=== PATIENT | male | born 1950 | race African-American/Black ===

== ENCOUNTER → 2023-10-22 | Emergency (ER) | payer OTHER ==
[~2023-10-22] MED LIST: NA CHLORIDE 0.9% 1,000 ML ONE; hydrOXYzine HCL 25 MG TAB ONE
--- OUTSIDE RECORDS SUMMARY | 2023-10-22 20:47 | XMS REPORT | Continuity of Care Document ---
Author Name Unknown Address [address] [facility] [address] [place] [address] [facility] thconnect Address [address] [facility] [address] [place] [address] Care Team Providers Care Photograph Retoucher Name Role Phone TaylorParesh marrerogenevieve White Primary Care Physician [phone] SANDOR WISE Attending Clinician Unavailable KAT GARCIA Attending Clinician Unavailable Kat Garcia MD Attending Clinician [phone], [facility] Attending Clinician Unavailable Sandrine Craig RN Attending Clinician UnavailRuthy Breaux RN Attending Clinician UnavailSandeep Maguire MD Attending Clinician Doctor Unassigned, [place] Attending Clinician U Sandor Shahid MD Attending Clinician [phone], [facility] Surg Proc Attending Clinician UnavailSHARMILA Urbina Attending Clinician UnavailSharmila Mahan Attending Clinician [phone] KAT MANTILLA Attending Clinician Unavailable Nurse, [facility] Gu Attending Clinician Marie buckner Only, [facility] Test Attending Clinician Unavailable Shi Walter RN Attending Clinician Unavailab ibarra 1, [facility] Attending Clinician Unavailable VIOLET REDDY Attending Clinician UnavailSANDOR Ramirez Admitting Clinician Unavailable KAT GARCIA Admitting Clinician Unavailable Kat Garcia MD Admitting Clinician [phone] SHARMILA FERGUSON Admitting Clinician UnavailSandor Richard MD Admitting Clinician [phone] Payers Payer Name Policy Type Policy Number Effective Date Expirati on Date Source [employer] ERS [id number] 00:00:00 [facility] [id number] 2020 00:00:00 Problems Condition Name Condition Details Condition Category Status Onset Date Resolution Date Last Treatment Date Treating Clinician Comments Source 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 Benign prostatic hyperplasi a, unspecifie d whether lower urinary tract symptoms present Benign prostatic hyperplasi a, unspecifie d whether lower urinary tract symptoms present Disease Active 03-03 00:00: 00 Overview: Formattin g of this note might be different from the original. Added automatic ally from request for surgery [id number] [facility] BPH with urinary obstructio n BPH with urinary obstructio n Disease Active 2017-07 00:00: 00 Overview: Formattin g of this note might be different from the original. Added automatic ally from request for surgery [id number] [facility] Benign prostatic hyperplasi a with lower urinary tract symptoms, symptom details unspecifie d Benign prostatic hyperplasi a with lower urinary tract symptoms, symptom details unspecifie d Disease Active 2017-07 00:00: 00 Overview: Formattin g of this note might be different from the original. Added automatic ally from request for surgery [id number] [facility] Allergies, Adverse Reactions, Alerts Allergy Name Allergy Type Status Severity Reaction(s) Onset Date Inactive Date Treating Clinician Comments Source NO KNOWN ALLERGIE S Drug Class Active [facility] Social History Social Habit Start Date Stop Date Quantity Comments Source Exposure to SARS-CoV-2 (event) Not sure [facility] Gender identity [facility] 2023-10-04 00:00:00 2023-10-04 00:00:00 Current non-drinker of alcohol (finding) [facility] History of Social function 2023-09-17 00:00:00 2023-09-17 00:00:00 [facility] Tobacco use and exposure 2023-05-30 00:00:00 2023-05-30 00:00:00 Smokeless tobacco non-user [facility] Sex Assigned At 1950 00:00:00 1950 00:00:00 [facility] Smoking Status Start Date Stop Date Source Never smoked tobacco [facility] Medications Ordered Medication Name Filled Medication Name Start Date Stop Date Current Medication? Ordering Clinician Indication Dosage Frequency Signature (SIG) Comments Components Source fludeoxyglu cose F-18 (FDG) injection 12.99 millicurie 2023-10-07 15:45: 00 10-07 14:37 :00 No [id number] 12.99mC i 12.99 millicurie , Intravenou s, ONCE, 1 dose, On Sun10/08/23 at 1045, Routine [facility] oxyCODONE 5 mg immediate release tablet 2023-0 3 00:00: 00 10-11 04:59 :00 Yes 2745 5mg Take 1 tablet by mouth every 4 (four) hours as needed for Pain (scale 4-6) or Pain (scale 7-10) for up to 7 days. Indication s: chronic pain [facility] oxyCODONE 5 mg immediate release tablet 2023-0 3-07 00:00: 00 10-11 04:59 :00 Yes 2745 5mg Take 1 tablet by mouth every 4 (four) hours as needed for Pain (scale 4-6) or Pain (scale 7-10) for up to 7 days. Indication s: chronic pain [facility] oxyCODONE 5 mg immediate release tablet 2023-0 3-07 00:00: 00 10-11 04:59 :00 Yes 2745 5mg Take 1 tablet by mouth every 4 (four) hours as needed for Pain (scale 4-6) or Pain (scale 7-10) for up to 7 days. Indication s: chronic pain [facility] oxyCODONE 5 mg immediate release tablet 2023-0 3-07 00:00: 00 10-11 04:59 :00 Yes 2745 5mg Take 1 tablet by mouth every 4 (four) hours as needed for Pain (scale 4-6) or Pain (scale 7-10) for up to 7 days. Indication s: chronic pain [facility] oxyCODONE 5 mg immediate release tablet 2023-0 3-07 00:00: 00 10-11 04:59 :00 Yes 2745 5mg Take 1 tablet by mouth every 4 (four) hours as needed for Pain (scale 4-6) or Pain (scale 7-10) for up to 7 days. Indication s: chronic pain [facility] oxyCODONE 5 mg immediate release tablet 2023-0 3-07 00:00: 00 10-11 04:59 :00 Yes 2745 5mg Take 1 tablet by mouth every 4 (four) hours as needed for Pain (scale 4-6) or Pain (scale 7-10) for up to 7 days. Indication s: chronic pain [facility] contrast previously administere d 0 mL 09-25 20:00: 00 09-25 19:49 :00 No [id number] Intravenou s, ONCE, 1 dose, On Sun09/25/23 at 1400, Routine [facility] iopamidol (ISOVUE 370-500 mL) injection 75 mL 09-25 19:30: 00 09-25 19:47 :00 No [id number] 75mL 75 mL, Intravenou s, ONCE, 1 dose, On Sun09/25/23 at 1330, Routine [facility] ondansetron (ZOFRAN (PF)) injection 4 mg 09-17 20:13: 16 Yes 4mg 4 mg, Slow IV Push, PRN, 1 dose, Starting on Sun09/17/23 at 1413, Until Discontinu ed, Routine, Nausea and Vomiting (N/V), DSU Recovery [facility] acetaminoph en (TYLENOL) tablet 650 mg 09-17 20:13: 16 Yes 650mg 650 mg, Oral, PRN, 1 dose, Starting on Sun09/17/23 at 1413, Until Discontinu ed, Routine, Pain (scale 1-3), D[facility] HYDROcodone -acetaminop hen (NORCO 5) 5-325 mg tablet 1 tablet 09-17 20:13: 16 09-17 20:23 :00 No 1{tbl} 1 tablet, Oral, PRN, 1 dose, Starting on Sun09/17/23 at 1413, Until Discontinu ed, Routine, Pain (scale 4-6), DSU Recovery [facility] ondansetron (ZOFRAN (PF)) injection 4 mg 09-17 20:13: 16 09-17 23:19 :18 No 4mg 4 mg, Slow IV Push, PRN, 1 dose, Starting on Sun09/17/23 at 1413, Until Sun09/17/23 at 1719, Routine, Nausea and Vomiting (N/V), DSU Recovery [facility] HYDROcodone -acetaminop hen (NORCO 5) 5-325 mg tablet 1 tablet 09-17 20:13: 16 09-17 20:23 :00 No 1{tbl} 1 tablet, Oral, PRN, 1 dose, Starting on Sun09/17/23 at 1413, Until Discontinu ed, Routine, Pain (scale 4-6), DSU Recovery [facility] acetaminoph en (TYLENOL) tablet 650 mg 09-17 20:13: 16 09-17 23:19 :18 No 650mg 650 mg, Oral, PRN, 1 dose, Starting on Sun09/17/23 at 1413, Until Sun09/17/23 at 1719, Routine, Pain (scale 1-3), D[facility] Recovery [facility] bupivacaine -epinephrin e-pf (SENSORCAIN E W/EPINEPHRI NE) 0.5 %-1:200,000 injection 09-17 19:24: 00 09-17 20:55 :29 No PRN, Starting on Sun09/17/23 at 1324, Until Sun09/17/23 at 1455, Routine, Intra-op [facility] dexamethaso ne (DECADRON PHOSPHATE) injection 09-17 19:07: 00 09-17 20:00 :59 No IV Push, ONCE INTRA PROCEDURE, Starting on Sun09/17/23 at 1307, Until Sun09/17/23 at 1400, Routine, Intra-op [facility] dexamethaso ne (DECADRON PHOSPHATE) injection 09-17 19:07: 00 09-17 20:00 :59 No IV Push, ONCE INTRA PROCEDURE, Starting on Sun09/17/23 at 1307, Until Sun09/17/23 at 1400, Routine, Intra-op [facility] cefTRIAXone (ROCEPHIN) injection 09-17 19:05: 00 09-17 20:00 :59 No Slow IV Push, ONCE INTRA PROCEDURE, Starting on Sun09/17/23 at 1305, Until Sun09/17/23 at 1400, JAMES, Intra-op [facility] cefTRIAXone (ROCEPHIN) injection 09-17 19:05: 00 09-17 20:00 :59 No Slow IV Push, ONCE INTRA PROCEDURE, Starting on Sun09/17/23 at 1305, Until Sun09/17/23 at 1400, JAMES, Intra-op [facility] metroNIDAZO LE in NaCl (iso-os) (FLAGYL I.V.) RTU IV infusion 09-17 19:02: 00 09-17 20:00 :59 No IV Infusion, ONCE INTRA PROCEDURE, Starting on Sun09/17/23 at 1302, Until Sun09/17/23 at 1400, Administer over 60 Minutes, Intra-op [facility] metroNIDAZO LE in NaCl (iso-os) (FLAGYL I.V.) RTU IV infusion 09-17 19:02: 00 09-17 20:00 :59 No IV Infusion, ONCE INTRA PROCEDURE, Starting on Sun09/17/23 at 1302, Until Sun09/17/23 at 1400, Administer over 60 Minutes, Intra-op [facility] ePHEDrine 25 mg/5 mL (5 mg/mL) syringe 09-17 18:59: 00 09-17 20:00 :59 No Slow IV Push, ONCE INTRA PROCEDURE, Starting on Sun09/17/23 at 1259, Until Sun09/17/23 at 1400, Routine, Intra-op [facility] ePHEDrine 25 mg/5 mL (5 mg/mL) syringe 09-17 18:59: 00 09-17 20:00 :59 No Slow IV Push, ONCE INTRA PROCEDURE, Starting on Sun09/17/23 at 1259, Until Sun09/17/23 at 1400, Routine, Intra-op [facility] ondansetron (ZOFRAN (PF)) injection 09-17 18:55: 00 09-17 20:00 :59 No Slow IV Push, ONCE INTRA PROCEDURE, Starting on Sun09/17/23 at 1255, Until Sun09/17/23 at 1400, Routine, Intra-op [facility] propofoL IV infusion 09-17 18:55: 00 09-17 20:00 :59 No Intravenou s, ONCE INTRA PROCEDURE, Starting on Sun09/17/23 at 1255, Until Sun09/17/23 at 1400, Routine, Intra-op [facility] lidocaine 1% (XYLOCAINE) 100 mg/10 mL (1 %) injection 09-17 18:55: 00 09-17 20:00 :59 No Intravenou s, ONCE INTRA PROCEDURE, Starting on Sun09/17/23 at 1255, Until Sun09/17/23 at 1400, Routine, Intra-op [facility] FENTanyl PF (SUBLIMAZE (PF)) injection 09-17 18:55: 00 09-17 20:00 :59 No Intravenou s, ONCE INTRA PROCEDURE, Starting on Sun09/17/23 at 1255, Until Sun09/17/23 at 1400, Routine, Intra-op [facility] ondansetron (ZOFRAN (PF)) injection 09-17 18:55: 00 09-17 20:00 :59 No Slow IV Push, ONCE INTRA PROCEDURE, Starting on Sun09/17/23 at 1255, Until Sun09/17/23 at 1400, Routine, Intra-op [facility] propofoL IV infusion 2023-0 09-17 18:55: 00 09-17 20:00 :59 No Intravenou s, ONCE INTRA PROCEDURE, Starting on Sun09/17/23 at 1255, Until Sun09/17/23 at 1400, Routine, Intra-op [facility] lidocaine 1% (XYLOCAINE) 100 mg/10 mL (1 %) injection 2023-09-17 18:55: 00 09-17 20:00 :59 No Intravenou s, ONCE INTRA PROCEDURE, Starting on Sun09/17/23 at 1255, Until Sun09/17/23 at 1400, Routine, Intra-op [facility] FENTanyl PF (SUBLIMAZE (PF)) injection 09-17 18:55: 00 09-17 20:00 :59 No Intravenou s, ONCE INTRA PROCEDURE, Starting on Sun09/17/23 at 1255, Until Sun09/17/23 at 1400, Routine, Intra-op [facility] lactated ringers IV infusion 2023-0 09-17 18:48: 00 09-17 20:00 :59 No IV Infusion, CONTINUOUS PRN, Starting on Sun09/17/23 at 1248, Until Sun09/17/23 at 1400, Routine, Intra-op [facility] midazolam (VERSED) injection 2023-0 - 18:48: 00 09-17 20:00 :59 No IV Push, ONCE INTRA PROCEDURE, Starting on Sun09/17/23 at 1248, Until Sun09/17/23 at 1400, Routine, [facility] 20[facility]-0 09-17 18:48: 00 09-17 20:00 :59 No IV Infusion, CONTINUOUS PRN, Starting on Sun09/17/23 at 1248, Until Sun09/17/23 at 1400, Routine, Intra-op [facility] midazolam (VERSED) injection 2023-0 2- 18:48: 00 09-17 20:00 :59 No IV Push, ONCE INTRA PROCEDURE, Starting on Sun09/17/23 at 1248, Until Sun09/17/23 at 1400, Routine, Intra-op [facility] lactated ringers IV infusion 1,000 mL 09-17 18:15: 00 09-17 18:36 :00 No 1000mL at 42 mL/hr, 1,000 mL, IV Infusion, ONCE, 1 dose, On Sun09/17/23 at 1215, Routine, DSU Pre-op [facility] lactated ringers IV infusion 1,000 mL 09-17 18:15: 00 09-17 18:36 :00 No 1000mL at 42 mL/hr, 1,000 mL, IV Infusion, ONCE, 1 dose, On Sun09/17/23 at 1215, Routine, DSU Pre-op [facility] metroNIDAZO LE in NaCl (iso-os) (FLAGYL I.V.) RTU IV infusion 500 mg 09-17 18:12: 53 09-17 18:48 :42 No 500mg 500 mg, IV Infusion, O.R. HOLDING ONCE, Starting on Sun09/17/23 at 1212, Until Sun09/17/23 at 1248, Administer over 60 Minutes, 100 mL, DSU Pre-op
Reason for Anti-Infec tive: Surgical Prophylaxi s
Surgi stephanie Prophylaxi s: Other (see Comments)< br>Duratio n of therapy: within [address] [facility] celecoxib (CELEBREX) capsule 200 mg 09-17 18:12: 53 09-17 18:23 :00 No 200mg 200 mg, Oral, O.R. HOLDING ONCE, 1 dose, Starting on Sun09/17/23 at 1212, Until Discontinu ed, Routine, Pain, DSU Pre-op [facility] gabapentin (NEURONTIN) capsule 300 mg 09-17 18:12: 53 09-17 18:23 :00 No 300mg 300 mg, Oral, O.R. HOLDING ONCE, 1 dose, Starting on Sun09/17/23 at 1212, Until Discontinu ed, Routine, Surgery/Pr ocedure, [facility] acetaminoph en (TYLENOL) tablet 650 mg 09-17 18:12: 53 09-17 18:23 :00 No 650mg 650 mg, Oral, O.R. HOLDING ONCE, 1 dose, Starting on Sun09/17/23 at 1212, Until Discontinu ed, Routine, Surgery / Procedure, DSU Pre-op [facility] metroNIDAZO LE in NaCl (iso-os) (FLAGYL I.V.) RTU IV infusion 500 mg 09-17 18:12: 53 09-17 18:48 :42 No 500mg 500 mg, IV Infusion, O.R. HOLDING ONCE, Starting on Sun09/17/23 at 1212, Until Sun09/17/23 at 1248, Administer over 60 Minutes, 100 mL, DSU Pre-op
Reason for Anti-Infec tive: Surgical Prophylaxi s
Surgi stephanie Prophylaxi s: Other (see Comments)< br>Duratio n of therapy: within [address] [facility] celecoxib (CELEBREX) capsule 200 mg 09-17 18:12: 53 09-17 18:23 :00 No 200mg 200 mg, Oral, O.R. HOLDING ONCE, 1 dose, Starting on Sun09/17/23 at 1212, Until Discontinu ed, Routine, Pain, DSU Pre-op [facility] gabapentin (NEURONTIN) capsule 300 mg 09-17 18:12: 53 09-17 18:23 :00 No 300mg 300 mg, Oral, O.R. HOLDING ONCE, 1 dose, Starting on Sun09/17/23 at 1212, Until Discontinu ed, Routine, Surgery/Pr ocedure, DSU Pre-op [facility] acetaminoph en (TYLENOL) tablet 650 mg 09-17 18:12: 53 09-17 18:23 :00 No 650mg 650 mg, Oral, O.R. HOLDING ONCE, 1 dose, Starting on Sun09/17/23 at 1212, Until Discontinu ed, Routine, Surgery / Procedure, [facility] Pre[facility]op [facility] atorvastati n 20 mg tablet 4-0 2-19 15:19: 03 Yes 20mg Take 1 tablet by mouth at bedtime. [facility] busPIRone 15 mg tablet 4-0 2-19 15:19: 03 Yes 15mg Take 1 tablet by mouth in the morning and 1 tablet in the evening. [facility] esomeprazol e 40 mg capsule 4-0 2-19 15:19: 03 Yes 40mg Take 1 capsule by mouth daily with breakfast. [facility] losartan 100 mg tablet 4-0 2-19 15:19: 03 Yes 100mg Take 1 tablet by mouth in the morning. [facility] hydroCHLORO thiazide 25 mg tablet 4-0 2-19 15:19: 03 Yes 25mg Take 1 tablet by mouth in the morning. [facility] doxazosin 2 mg tablet 4-0 2-19 15:19: 03 Yes 2mg Take 1 tablet by mouth in the morning. [facility] atorvastati n 20 mg tablet 4-0 2-19 15:19: 03 Yes 20mg Take 1 tablet by mouth at bedtime. [facility] busPIRone 15 mg tablet 4-0 2-19 15:19: 03 Yes 15mg Take 1 tablet by mouth in the morning and 1 tablet in the evening. [facility] esomeprazol e 40 mg capsule 4-0 2-19 15:19: 03 Yes 40mg Take 1 capsule by mouth daily with breakfast. [facility] losartan 100 mg tablet 4-0 2-19 15:19: 03 Yes 100mg Take 1 tablet by mouth in the morning. [facility] hydroCHLORO thiazide 25 mg tablet 4-0 2-19 15:19: 03 Yes 25mg Take 1 tablet by mouth in the morning. [facility] doxazosin 2 mg tablet 4-0 2-19 15:19: 03 Yes 2mg Take 1 tablet by mouth in the morning. [facility] atorvastati n 20 mg tablet 4-0 2-19 15:19: 03 Yes 20mg Take 1 tablet by mouth at bedtime. [facility] busPIRone 15 mg tablet 4-0 2-19 15:19: 03 Yes 15mg Take 1 tablet by mouth in the morning and 1 tablet in the evening. [facility] esomeprazol e 40 mg capsule 4-0 2-19 15:19: 03 Yes 40mg Take 1 capsule by mouth daily with breakfast. [facility] losartan 100 mg tablet 4-0 2-19 15:19: 03 Yes 100mg Take 1 tablet by mouth in the morning. [facility] hydroCHLORO thiazide 25 mg tablet 4-0 2-19 15:19: 03 Yes 25mg Take 1 tablet by mouth in the morning. [facility] atorvastati n 20 mg tablet 4-0 2-19 15:19: 03 Yes 20mg Take 1 tablet by mouth at bedtime. [facility] busPIRone 15 mg tablet 4-0 2-19 15:19: 03 Yes 15mg Take 1 tablet by mouth in the morning and 1 tablet in the evening. [facility] esomeprazol e 40 mg capsule 4-0 -19 15:19: 03 Yes 40mg Take 1 capsule by mouth daily with breakfast. [facility] losartan 100 mg tablet 4-0 -19 15:19: 03 Yes 100mg Take 1 tablet by mouth in the morning. [facility] hydroCHLORO thiazide 25 mg tablet 4-0 2-19 15:19: 03 Yes 25mg Take 1 tablet by mouth in the morning. [facility] doxazosin 2 mg tablet 4-0 -19 15:19: 03 Yes 2mg Take 1 tablet by mouth in the morning. [facility] atorvastati n 20 mg tablet 4-0 2-19 15:19: 03 Yes 20mg Take 1 tablet by mouth at bedtime. [facility] busPIRone 15 mg tablet 4-0 2-19 15:19: 03 Yes 15mg Take 1 tablet by mouth in the morning and 1 tablet in the evening. [facility] esomeprazol e 40 mg capsule 4-0 2-19 15:19: 03 Yes 40mg Take 1 capsule by mouth daily with breakfast. [facility] losartan 100 mg tablet 4-0 2-19 15:19: 03 Yes 100mg Take 1 tablet by mouth in the morning. [facility] hydroCHLORO thiazide 25 mg tablet 4-0 2-19 15:19: 03 Yes 25mg Take 1 tablet by mouth in the morning. [facility] doxazosin 2 mg tablet 4-0 2-19 15:19: 03 Yes 2mg Take 1 tablet by mouth in the morning. [facility] atorvastati n 20 mg tablet 4-0 2-19 15:19: 03 Yes 20mg Take 1 tablet by mouth at bedtime. [facility] busPIRone 15 mg tablet 4-0 2-19 15:19: 03 Yes 15mg Take 1 tablet by mouth in the morning and 1 tablet in the evening. [facility] esomeprazol e 40 mg capsule 4-0 -19 15:19: 03 Yes 40mg Take 1 capsule by mouth daily with breakfast. [facility] losartan 100 mg tablet 4-0 -19 15:19: 03 Yes 100mg Take 1 tablet by mouth in the morning. [facility] hydroCHLORO thiazide 25 mg tablet 4-0 2-19 15:19: 03 Yes 25mg Take 1 tablet by mouth in the morning. [facility] doxazosin 2 mg tablet 4-0 2-19 15:19: 03 Yes 2mg Take 1 tablet by mouth in the morning. [facility] atorvastati n 20 mg tablet 4-0 2-19 15:19: 03 Yes 20mg Take 1 tablet by mouth at bedtime. [facility] busPIRone 15 mg tablet 4-0 2-19 15:19: 03 Yes 15mg Take 1 tablet by mouth in the morning and 1 tablet in the evening. [facility] esomeprazol e 40 mg capsule 4-0 2-19 15:19: 03 Yes 40mg Take 1 capsule by mouth daily with breakfast. [facility] losartan 100 mg tablet 4-0 2-19 15:19: 03 Yes 100mg Take 1 tablet by mouth in the morning. [facility] hydroCHLORO thiazide 25 mg tablet 4-0 2-19 15:19: 03 Yes 25mg Take 1 tablet by mouth in the morning. [facility] doxazosin 2 mg tablet 4-0 2-19 15:19: 03 Yes 2mg Take 1 tablet by mouth in the morning. [facility] atorvastati n 20 mg tablet 4-0 2-19 15:19: 03 Yes 20mg Take 1 tablet by mouth at bedtime. [facility] busPIRone 15 mg tablet 4-0 2-19 15:19: 03 Yes 15mg Take 1 tablet by mouth in the morning and 1 tablet in the evening. [facility] esomeprazol e 40 mg capsule 4-0 2-19 15:19: 03 Yes 40mg Take 1 capsule by mouth daily with breakfast. [facility] losartan 100 mg tablet 4-0 -19 15:19: 03 Yes 100mg Take 1 tablet by mouth in the morning. [facility] hydroCHLORO thiazide 25 mg tablet 4-0 2-19 15:19: 03 Yes 25mg Take 1 tablet by mouth in the morning. [facility] doxazosin 2 mg tablet 2023-0 - 15:19: 03 Yes 2mg Take 1 tablet by mouth in the morning. [facility] atorvastati n 20 mg tablet 4-0 2-19 15:19: 03 Yes 20mg Take 1 tablet by mouth at bedtime. [facility] busPIRone 15 mg tablet 4-0 2-19 15:19: 03 Yes 15mg Take 1 tablet by mouth in the morning and 1 tablet in the evening. [facility] esomeprazol e 40 mg capsule 4-0 2-19 15:19: 03 Yes 40mg Take 1 capsule by mouth daily with breakfast. [facility] losartan 100 mg tablet 4-0 2-19 15:19: 03 Yes 100mg Take 1 tablet by mouth in the morning. [facility] hydroCHLORO thiazide 25 mg tablet 4-0 2-19 15:19: 03 Yes 25mg Take 1 tablet by mouth in the morning. [facility] doxazosin 2 mg tablet 4-0 2-19 15:19: 03 Yes 2mg Take 1 tablet by mouth in the morning. [facility] atorvastati n 20 mg tablet 4-0 2-19 15:19: 03 Yes 20mg Take 1 tablet by mouth at bedtime. [facility] busPIRone 15 mg tablet 4-0 2-19 15:19: 03 Yes 15mg Take 1 tablet by mouth in the morning and 1 tablet in the evening. [facility] esomeprazol e 40 mg capsule 4-0 2-19 15:19: 03 Yes 40mg Take 1 capsule by mouth daily with breakfast. [facility] losartan 100 mg tablet 4-0 2-19 15:19: 03 Yes 100mg Take 1 tablet by mouth in the morning. [facility] hydroCHLORO thiazide 25 mg tablet 4-0 2-19 15:19: 03 Yes 25mg Take 1 tablet by mouth in the morning. [facility] doxazosin 2 mg tablet 4-0 2-19 15:19: 03 Yes 2mg Take 1 tablet by mouth in the morning. [facility] atorvastati n 20 mg tablet 4-0 2-19 15:19: 03 Yes 20mg Take 1 tablet by mouth at bedtime. [facility] busPIRone 15 mg tablet 4-0 2-19 15:19: 03 Yes 15mg Take 1 tablet by mouth in the morning and 1 tablet in the evening. [facility] esomeprazol e 40 mg capsule 4-0 2-19 15:19: 03 Yes 40mg Take 1 capsule by mouth daily with breakfast. [facility] [facility] losartan 100 mg tablet 4-0 2-19 15:19: 03 Yes 100mg Take 1 tablet by mouth in the morning. [facility] hydroCHLORO thiazide 25 mg tablet 4-0 2-19 15:19: 03 Yes 25mg Take 1 tablet by mouth in the morning. [facility] doxazosin 2 mg tablet 4-0 2-19 15:19: 03 Yes 2mg Take 1 tablet by mouth in the morning. [facility] atorvastati n 20 mg tablet 4-0 2-19 15:19: 03 Yes 20mg Take 1 tablet by mouth at bedtime. [facility] busPIRone 15 mg tablet 4-0 2-19 15:19: 03 Yes 15mg Take 1 tablet by mouth in the morning and 1 tablet in the evening. [facility] esomeprazol e 40 mg capsule 4-0 2-19 15:19: 03 Yes 40mg Take 1 capsule by mouth daily with breakfast. [facility] losartan 100 mg tablet 4-0 2-19 15:19: 03 Yes 100mg Take 1 tablet by mouth in the morning. [facility] hydroCHLORO thiazide 25 mg tablet 4-0 2-19 15:19: 03 Yes 25mg Take 1 tablet by mouth in the morning. [facility] doxazosin 2 mg tablet 4-0 2-19 15:19: 03 Yes 2mg Take 1 tablet by mouth in the morning. [facility] atorvastati n 20 mg tablet 4-0 -19 15:19: 03 Yes 20mg Take 1 tablet by mouth at bedtime. [facility] busPIRone 15 mg tablet 4-0 2-19 15:19: 03 Yes 15mg Take 1 tablet by mouth in the morning and 1 tablet in the evening. [facility] esomeprazol e 40 mg capsule 4-0 -19 15:19: 03 Yes 40mg Take 1 capsule by mouth daily with breakfast. [facility] losartan 100 mg tablet 4-0 2-19 15:19: 03 Yes 100mg Take 1 tablet by mouth in the morning. [facility] hydroCHLORO thiazide 25 mg tablet 4-0 2-19 15:19: 03 Yes 25mg Take 1 tablet by mouth in the morning. [facility] doxazosin 2 mg tablet 4-0 2-19 15:19: 03 Yes 2mg Take 1 tablet by mouth in the morning. [facility] atorvastati n 20 mg tablet 4-0 2-19 15:19: 03 Yes 20mg Take 1 tablet by mouth at bedtime. [facility] busPIRone 15 mg tablet 4-0 2-19 15:19: 03 Yes 15mg Take 1 tablet by mouth in the morning and 1 tablet in the evening. [facility] esomeprazol e 40 mg capsule 4-0 2-19 15:19: 03 Yes 40mg Take 1 capsule by mouth daily with breakfast. [facility] losartan 100 mg tablet 4-0 2-19 15:19: 03 Yes 100mg Take 1 tablet by mouth in the morning. [facility] hydroCHLORO thiazide 25 mg tablet 4-0 2-19 15:19: 03 Yes 25mg Take 1 tablet by mouth in the morning. [facility] doxazosin 2 mg tablet 4-0 - 15:19: 03 Yes 2mg Take 1 tablet by mouth in the morning. [facility] atorvastati n 20 mg tablet 4-0 -19 15:19: 03 Yes 20mg Take 1 tablet by mouth at bedtime. [facility] busPIRone 15 mg tablet 4-0 2-19 15:19: 03 Yes 15mg Take 1 tablet by mouth in the morning and 1 tablet in the evening. [facility] esomeprazol e 40 mg capsule 4-0 -19 15:19: 03 Yes 40mg Take 1 capsule by mouth daily with breakfast. [facility] losartan 100 mg tablet 4-0 2-19 15:19: 03 Yes 100mg Take 1 tablet by mouth in the morning. [facility] hydroCHLORO thiazide 25 mg tablet 4-0 2-19 15:19: 03 Yes 25mg Take 1 tablet by mouth in the morning. [facility] doxazosin 2 mg tablet 4-0 2-19 15:19: 03 Yes 2mg Take 1 tablet by mouth in the morning. [facility] atorvastati n 20 mg tablet 4-0 2-19 15:19: 03 Yes 20mg Take 1 tablet by mouth at bedtime. [facility] busPIRone 15 mg tablet 09-17 15:19: 03 Yes 15mg Take 1 tablet by mouth in the morning and 1 tablet in the evening. [facility] esomeprazol e 40 mg capsule 09-17 15:19: 03 Yes 40mg Take 1 capsule by mouth daily with breakfast. [facility] losartan 100 mg tablet 09-17 15:19: 03 Yes 100mg Take 1 tablet by mouth in the morning. [facility] hydroCHLORO thiazide 25 mg tablet 09-17 15:19: 03 Yes 25mg Take 1 tablet by mouth in the morning. [facility] doxazosin 2 mg tablet 09-17 15:19: 03 Yes 2mg Take 1 tablet by mouth in the morning. [facility] acetaminoph en (TYLENOL) 325 mg Cap 09-17 00:00: 00 10-01 05:59 :00 Yes [id number] 650mg Take 650 mg by mouth in the morning and 650 mg at noon and 650 mg in the evening. Do all this for [address] [facility] acetaminoph en (TYLENOL) 325 mg Cap 09-17 00:00: 00 10-01 05:59 :00 Yes [id number] 650mg Take 650 mg by mouth in the morning and 650 mg at noon and 650 mg in the evening. Do all this for [address] [facility] acetaminoph en (TYLENOL) 325 mg Cap 09-17 00:00: 00 10-01 05:59 :00 Yes [id number] 650mg Take 650 mg by mouth in the morning and 650 mg at noon and 650 mg in the evening. Do all this for [address] [facility] acetaminoph en (TYLENOL) 325 mg Cap 2023-0 09-17 00:00: 00 10-01 05:59 :00 Yes [id number] 650mg Take 650 mg by mouth in the morning and 650 mg at noon and 650 mg in the evening. Do all this for [address] [facility] acetaminoph en (TYLENOL) 325 mg Cap -19 00:00: 00 10-01 05:59 :00 Yes [id number] 650mg Take 650 mg by mouth in the morning and 650 mg at noon and 650 mg in the evening. Do all this for [address] [facility] gadoteridol (PROHANCE-2 0 mL) injection 18.32 mL 09-14 23:15: 00 09-14 23:16 :00 No [id number] .2mL/kg 18.32 mL (0.2 mL/kg ?91.6 kg), Intravenou s, ONCE, 1 dose, On Sun09/14/23 at 1715, Routine [facility] carvedilol 6.25 mg tablet 09-12 10:: 09-12 00:00 :00 No 25mg Take 4 tablets by mouth in the morning and 4 tablets in the evening. Take with meals. [facility] Cholecalcif german, Vitamin D3, 5,000 unit capsule 09-12 10:: 09-12 00:00 :00 No Take by mouth. [facility] carvedilol 6.25 mg tablet 09-12 10:16: 09-12 00:00 :00 No 25mg Take 4 tablets by mouth in the morning and 4 tablets in the evening. Take with meals. [facility] Cholecalcif german, Vitamin D3, 5,000 unit capsule 09-12 10:: 09-12 00:00 :00 No Take by mouth. [facility] valsartan-h ydrochlorot hiazide (DIOVAN-HCT ) 80-12.5 mg per tablet 09-12 10:15: 09-12 00:00 :00 No 1{tbl} Take 1 tablet by mouth in the morning. [facility] tamsulosin 0.4 mg 24 hr capsule 09-12 10:15: 09-12 00:00 :00 No .4mg Take 1 capsule by mouth in the morning. [facility] valsartan-h ydrochlorot hiazide (DIOVAN-HCT ) 80-12.5 mg per tablet 09-12 10:15: 00 09-12 00:00 :00 No 1{tbl} Take 1 tablet by mouth in the morning. [facility] tamsulosin 0.4 mg 24 hr capsule 09-12 10:15: 00 09-12 00:00 :00 No .4mg Take 1 capsule by mouth in the morning. [facility] atorvastati n 20 mg tablet 09-12 10:14: 18 Yes 20mg Take 1 tablet by mouth at bedtime. [facility] busPIRone 15 mg tablet -14 10:14: 18 Yes 15mg Take 1 tablet by mouth in the morning and 1 tablet in the evening. [facility] esomeprazol e 40 mg capsule - 10:14: 18 Yes 40mg Take 1 capsule by mouth daily with breakfast. [facility] losartan 100 mg tablet 09-12 10:14: 18 Yes 100mg Take 1 tablet by mouth in the morning. [facility] hydroCHLORO thiazide 25 mg tablet - 10:14: 18 Yes 25mg Take 1 tablet by mouth in the morning. [facility] doxazosin 2 mg tablet 09-12 10:14: 18 Yes 2mg Take 1 tablet by mouth in the morning. [facility] atorvastati n 20 mg tablet 0 -14 10:14: 18 Yes 20mg Take 1 tablet by mouth at bedtime. [facility] busPIRone 15 mg tablet 0 -14 10:14: 18 Yes 15mg Take 1 tablet by mouth in the morning and 1 tablet in the evening. [facility] esomeprazol e 40 mg capsule 2023-0 -14 10:14: 18 Yes 40mg Take 1 capsule by mouth daily with breakfast. [facility] losartan 100 mg tablet 2023-0 14 10:14: 18 Yes 100mg Take 1 tablet by mouth in the morning. [facility] hydroCHLORO thiazide 25 mg tablet 2023-0 -14 10:14: 18 Yes 25mg Take 1 tablet by mouth in the morning. [facility] doxazosin 2 mg tablet 2023-0 -14 10:14: 18 Yes 2mg Take 1 tablet by mouth in the morning. [facility] atorvastati n 20 mg tablet 2023-0 -14 10:14: 18 Yes 20mg Take 1 tablet by mouth at bedtime. [facility] busPIRone 15 mg tablet 2023-0 -14 10:14: 18 Yes 15mg Take 1 tablet by mouth in the morning and 1 tablet in the evening. [facility] esomeprazol e 40 mg capsule 2023-0 09-12 10:14: 18 Yes 40mg Take 1 capsule by mouth daily with breakfast. [facility] losartan 100 mg tablet 2023-0 14 10:14: 18 Yes 100mg Take 1 tablet by mouth in the morning. [facility] hydroCHLORO thiazide 25 mg tablet 2023-0 14 10:14: 18 Yes 25mg Take 1 tablet by mouth in the morning. [facility] doxazosin 2 mg tablet 2023-0 14 10:14: 18 Yes 2mg Take 1 tablet by mouth in the morning. [facility] carvedilol 6.25 mg tablet 4-0 08 16:23: 58 Yes 25mg Take 4 tablets by mouth in the morning and 4 tablets in the evening. Take with meals. [facility] carvedilol 6.25 mg tablet 4-0 -08 16:23: 58 Yes 25mg Take 4 tablets by mouth in the morning and 4 tablets in the evening. Take with meals. [facility] carvedilol 6.25 mg tablet 4-0 2-08 16:23: 58 Yes 25mg Take 4 tablets by mouth in the morning and 4 tablets in the evening. Take with meals. [facility] carvedilol 6.25 mg tablet 09-06 16:23: 58 Yes 25mg Take 4 tablets by mouth in the morning and 4 tablets in the evening. Take with meals. [facility] doxazosin 2 mg tablet 09-06 15:11: 19 Yes 2mg Take 1 tablet by mouth in the morning. [facility] doxazosin 2 mg tablet 09-06 15:11: 19 Yes 2mg Take 1 tablet by mouth in the morning. [facility] doxazosin 2 mg tablet 09-06 15:11: 19 Yes 2mg Take 1 tablet by mouth in the morning. [facility] doxazosin 2 mg tablet 09-06 15:11: 19 Yes 2mg Take 1 tablet by mouth in the morning. [facility] tamsulosin 0.4 mg 24 hr capsule 09-06 14:44: 20 Yes .4mg Take 1 capsule by mouth in the morning. [facility] busPIRone 15 mg tablet 09-06 14:44: 20 Yes 15mg Take 1 tablet by mouth in the morning and 1 tablet in the evening. [facility] esomeprazol e 40 mg capsule 09-06 14:44: 20 Yes 40mg Take 1 capsule by mouth daily with breakfast. [facility] Cholecalcif german, Vitamin D3, 5,000 unit capsule 09-06 14:44: 20 Yes Take by mouth. [facility] losartan 100 mg tablet 09-06 14:44: 20 Yes 100mg Take 1 tablet by mouth in the morning. [facility] hydroCHLORO thiazide 25 mg tablet 09-06 14:44: 20 Yes 25mg Take 1 tablet by mouth in the morning. [facility] valsartan-h ydrochlorot hiazide (DIOVAN-HCT ) 80-12.5 mg per tablet 09-06 14:44: 20 Yes 1{tbl} Take 1 tablet by mouth in the morning. [facility] atorvastati n 20 mg tablet 09-06 14:44: 20 Yes 20mg Take 1 tablet by mouth at bedtime. [facility] tamsulosin 0.4 mg 24 hr capsule 09-06 14:44: 20 Yes .4mg Take 1 capsule by mouth in the morning. [facility] busPIRone 15 mg tablet 09-06 14:44: 20 Yes 15mg Take 1 tablet by mouth in the morning and 1 tablet in the evening. [facility] esomeprazol e 40 mg capsule 09-06 14:44: 20 Yes 40mg Take 1 capsule by mouth daily with breakfast. [facility] Cholecalcif german, Vitamin D3, 5,000 unit capsule 09-06 14:44: 20 Yes Take by mouth. [facility] losartan 100 mg tablet 09-06 14:44: 20 Yes 100mg Take 1 tablet by mouth in the morning. [facility] hydroCHLORO thiazide 25 mg tablet 09-06 14:44: 20 Yes 25mg Take 1 tablet by mouth in the morning. [facility] valsartan-h ydrochlorot hiazide (DIOVAN-HCT ) 80-12.5 mg per tablet 09-06 14:44: 20 Yes 1{tbl} Take 1 tablet by mouth in the morning. [facility] atorvastati n 20 mg tablet 09-06 14:44: 20 Yes 20mg Take 1 tablet by mouth at bedtime. [facility] tamsulosin 0.4 mg 24 hr capsule 09-06 14:44: 20 Yes .4mg Take 1 capsule by mouth in the morning. [facility] busPIRone 15 mg tablet 09-06 14:44: 20 Yes 15mg Take 1 tablet by mouth in the morning and 1 tablet in the evening. [facility] esomeprazol e 40 mg capsule 09-06 14:44: 20 Yes 40mg Take 1 capsule by mouth daily with breakfast. [facility] Cholecalcif german, Vitamin D3, 5,000 unit capsule 09-06 14:44: 20 Yes Take by mouth. [facility] losartan 100 mg tablet 09-06 14:44: 20 Yes 100mg Take 1 tablet by mouth in the morning. [facility] hydroCHLORO thiazide 25 mg tablet 09-06 14:44: 20 Yes 25mg Take 1 tablet by mouth in the morning. [facility] valsartan-h ydrochlorot hiazide (DIOVAN-HCT ) 80-12.5 mg per tablet 09-06 14:44: 20 Yes 1{tbl} Take 1 tablet by mouth in the morning. [facility] atorvastati n 20 mg tablet 09-06 14:44: 20 Yes 20mg Take 1 tablet by mouth at bedtime. [facility] tamsulosin 0.4 mg 24 hr capsule 09-06 14:44: 20 Yes .4mg Take 1 capsule by mouth in the morning. [facility] busPIRone 15 mg tablet 09-06 14:44: 20 Yes 15mg Take 1 tablet by mouth in the morning and 1 tablet in the evening. [facility] esomeprazol e 40 mg capsule 09-06 14:44: 20 Yes 40mg Take 1 capsule by mouth daily with breakfast. [facility] Cholecalcif german, Vitamin D3, 5,000 unit capsule 09-06 14:44: 20 Yes Take by mouth. [facility] losartan 100 mg tablet 09-06 14:44: 20 Yes 100mg Take 1 tablet by mouth in the morning. [facility] hydroCHLORO thiazide 25 mg tablet 09-06 14:44: 20 Yes 25mg Take 1 tablet by mouth in the morning. [facility] valsartan-h ydrochlorot hiazide (DIOVAN-HCT ) 80-12.5 mg per tablet 09-06 14:44: 20 Yes 1{tbl} Take 1 tablet by mouth in the morning. [facility] atorvastati n 20 mg tablet 4-0 2-08 14:44: 20 Yes 20mg Take 1 tablet by mouth at bedtime. [facility] oxyCODONE 5 mg immediate release tablet 2023-0 2-08 00:00: 00 09-14 05:59 :00 Yes [id number] 5mg Take 1 tablet by mouth every 4 (four) hours as needed for Pain (scale 7-10) for up to 7 days. Indication s: acute pain [facility] oxyCODONE 5 mg immediate release tablet 4-0 2-08 00:00: 00 09-14 05:59 :00 Yes [id number] 5mg Take 1 tablet by mouth every 4 (four) hours as needed for Pain (scale 7-10) for up to 7 days. Indication s: acute pain [facility] oxyCODONE 5 mg immediate release tablet 4-0 2-08 00:00: 00 09-14 05:59 :00 Yes [id number] 5mg Take 1 tablet by mouth every 4 (four) hours as needed for Pain (scale 7-10) for up to 7 days. Indication s: acute pain [facility] oxyCODONE 5 mg immediate release tablet 2023-0 2-08 00:00: 00 09-14 05:59 :00 No [id number] 5mg Take 1 tablet by mouth every 4 (four) hours as needed for Pain (scale 7-10) for up to 7 days. Indication s: acute pain [facility] oxyCODONE 5 mg immediate release tablet 4-0 2-08 00:00: 00 09-14 05:59 :00 No [id number] 5mg Take 1 tablet by mouth every 4 (four) hours as needed for Pain (scale 7-10) for up to 7 days. Indication s: acute pain [facility] oxyCODONE 5 mg immediate release tablet 4-0 2-08 00:00: 00 09-14 05:59 :00 Yes [id number] 5mg Take 1 tablet by mouth every 4 (four) hours as needed for Pain (scale 7-10) for up to 7 days. Indication s: acute pain [facility] oxyCODONE 5 mg immediate release tablet 2023-0 2-08 00:00: 00 16 05:59 :00 Yes [id number] 5mg Take 1 tablet by mouth every 4 (four) hours as needed for Pain (scale 7-10) for up to 7 days. Indication s: acute pain [facility] RECTASMOOTH E 5 % cream 2023-0 2-02 00:00: 00 Yes APPLY TO THE AFFECTED AREA TOPICALLY IN THE MORNING AND IN THE EVENING [facility] RECTASMOOTH E 5 % cream 2023-0 - 00:00: 00 Yes APPLY TO THE AFFECTED AREA TOPICALLY IN THE MORNING AND IN THE EVENING [facility] RECTASMOOTH E 5 % cream 2023-0 08-31 00:00: 00 Yes APPLY TO THE AFFECTED AREA TOPICALLY IN THE MORNING AND IN THE EVENING [facility] RECTASMOOTH E 5 % cream 2023-0 08-31 00:00: 00 Yes APPLY TO THE AFFECTED AREA TOPICALLY IN THE MORNING AND IN THE EVENING [facility] RECTASMOOTH E 5 % cream 2023-0 - 00:00: 00 09-12 00:00 :00 No APPLY TO THE AFFECTED AREA TOPICALLY IN THE MORNING AND IN THE EVENING [facility] RECTASMOOTH E 5 % cream 2023-0 - 00:00: 00 09-12 00:00 :00 No APPLY TO THE AFFECTED AREA TOPICALLY IN THE MORNING AND IN THE EVENING [facility] pramoxine-h ydrocortiso ne 1-1 % foam 2- 00:00: 00 Yes 1{appli cation} Apply 1 Applicatio n to area(s). [facility] Lidocaine-A luzma Vera 0.5 % Gel 2- 00:00: 00 Yes 1{appli cation} Apply 1 Applicatio n to area(s). [facility] pramoxine-h ydrocortiso ne 1-1 % foam 2023-0 2- 00:00: 00 Yes 1{appli cation} Apply 1 Applicatio n to area(s). [facility] Lidocaine-A luzma Vera 0.5 % Gel 2024-0 2-01 00:00: 00 Yes 1{appli cation} Apply 1 Applicatio n to area(s). [facility] Lidocaine-A luzma Vera 0.5 % Gel 2024-0 2-01 00:00: 00 Yes 1{appli cation} Apply 1 Applicatio n to area(s). [facility] Lidocaine-A luzma Vera 0.5 % Gel 2024-0 2-01 00:00: 00 Yes 1{appli cation} Apply 1 Applicatio n to area(s). [facility] Lidocaine-A luzma Vera 0.5 % Gel 2024-0 2-01 00:00: 00 Yes 1{appli cation} Apply 1 Applicatio n to area(s). [facility] Lidocaine-A luzma Vera 0.5 % Gel 2024-0 2- 00:00: 00 Yes 1{appli cation} Apply 1 Applicatio n to area(s). [facility] Lidocaine-A luzma Vera 0.5 % Gel 2024-0 2- 00:00: 00 Yes 1{appli cation} Apply 1 Applicatio n to area(s). [facility] Lidocaine-A luzma Vera 0.5 % Gel 2024-0 2-01 00:00: 00 Yes 1{appli cation} Apply 1 Applicatio n to area(s). [facility] Lidocaine-A luzma Vera 0.5 % Gel 2024-0 2-01 00:00: 00 Yes 1{appli cation} Apply 1 Applicatio n to area(s). [facility] Lidocaine-A luzma Vera 0.5 % Gel 2024-0 2-01 00:00: 00 Yes 1{appli cation} Apply 1 Applicatio n to area(s). [facility] Lidocaine-A luzma Vera 0.5 % Gel 2024-0 2-01 00:00: 00 Yes 1{appli cation} Apply 1 Applicatio n to area(s). [facility] Lidocaine-A luzma Vera 0.5 % Gel 2024-0 2-01 00:00: 00 Yes 1{appli cation} Apply 1 Applicatio n to area(s). [facility] Lidocaine-A luzma Vera 0.5 % Gel 2024-0 2-01 00:00: 00 Yes 1{appli cation} Apply 1 Applicatio n to area(s). [facility] Lidocaine-A luzma Vera 0.5 % Gel 2024-0 2- 00:00: 00 Yes 1{appli cation} Apply 1 Applicatio n to area(s). [facility] Lidocaine-A luzma Vera 0.5 % Gel 2024-0 2- 00:00: 00 Yes 1{appli cation} Apply 1 Applicatio n to area(s). [facility] Lidocaine-A luzma Vera 0.5 % Gel 2024-0 2- 00:00: 00 Yes 1{appli cation} Apply 1 Applicatio n to area(s). [facility] Lidocaine-A luzma Vera 0.5 % Gel 2024-0 2- 00:00: 00 Yes 1{appli cation} Apply 1 Applicatio n to area(s). [facility] Lidocaine-A luzma Vera 0.5 % Gel 2024-0 2- 00:00: 00 Yes 1{appli cation} Apply 1 Applicatio n to area(s). [facility] Lidocaine-A luzma Vera 0.5 % Gel 2024-0 2- 00:00: 00 Yes 1{appli cation} Apply 1 Applicatio n to area(s). [facility] Lidocaine-A luzma Vera 0.5 % Gel 2024-0 2- 00:00: 00 Yes 1{appli cation} Apply 1 Applicatio n to area(s). [facility] pramoxine-h ydrocortiso ne 1-1 % foam 2024-0 2-01 00:00: 00 Yes 1{appli cation} Apply 1 Applicatio n to area(s). [facility] Lidocaine-A luzma Vera 0.5 % Gel 0 2- 00:00: 00 Yes 1{appli cation} Apply 1 Applicatio n to area(s). [facility] pramoxine-h ydrocortiso ne 1-1 % foam 2023-0 2- 00:00: 00 Yes 1{appli cation} Apply 1 Applicatio n to area(s). [facility] Lidocaine-A luzma Vera 0.5 % Gel 2- 00:00: 00 Yes 1{appli cation} Apply 1 Applicatio n to area(s). [facility] pramoxine-h ydrocortiso ne 1-1 % foam 2023- 2- 00:00: 00 09-12 00:00 :00 No 1{appli cation} Apply 1 Applicatio n to area(s). [facility] pramoxine-h ydrocortiso ne 1-1 % foam 2- 00:00: 00 09-12 00:00 :00 No 1{appli cation} Apply 1 Applicatio n to area(s). [facility] hydrocortis one 25 mg suppository 2- 00:00: 00 09-10 05:59 :00 No 25mg Insert 1 Suppositor y into rectum. [facility] hydrocortis one 25 mg suppository 0 2- 00:00: 00 09-10 05:59 :00 Yes 25mg Insert 1 Suppositor y into rectum. [facility] hydrocortis one 25 mg suppository 0 2-01 00:00: 00 09-10 05:59 :00 Yes 25mg Insert 1 Suppositor y into rectum. [facility] ondansetron 4 mg tablet 2023-0 1-18 00:00: 00 Yes TAKE 1 TABLET BY MOUTH EVERY 8 HOURS NEEDED FOR NAUSEA OR VOMITING FOR UP TO [address] [facility] ondansetron 4 mg tablet 2024-0 1-18 00:00: 00 Yes TAKE 1 TABLET BY MOUTH EVERY 8 HOURS NEEDED FOR NAUSEA OR VOMITING FOR UP TO 7 DAYS [facility] ondansetron 4 mg tablet 4-0 1-18 00:00: 00 Yes TAKE 1 TABLET BY MOUTH EVERY 8 HOURS NEEDED FOR NAUSEA OR VOMITING FOR UP TO 7 DAYS [facility] ondansetron 4 mg tablet 2024-0 1-18 00:00: 00 Yes TAKE 1 TABLET BY MOUTH EVERY 8 HOURS NEEDED FOR NAUSEA OR VOMITING FOR UP TO 7 DAYS [facility] ondansetron 4 mg tablet 2024-0 1-18 00:00: 00 Yes TAKE 1 TABLET BY MOUTH EVERY 8 HOURS NEEDED FOR NAUSEA OR VOMITING FOR UP TO 7 DAYS [facility] ondansetron 4 mg tablet 4-0 1-18 00:00: 00 Yes TAKE 1 TABLET BY MOUTH EVERY 8 HOURS NEEDED FOR NAUSEA OR VOMITING FOR UP TO 7 DAYS [facility] ondansetron 4 mg tablet 2024-0 1-18 00:00: 00 Yes TAKE 1 TABLET BY MOUTH EVERY 8 HOURS NEEDED FOR NAUSEA OR VOMITING FOR UP TO 7 DAYS [facility] ondansetron 4 mg tablet 4-0 1-18 00:00: 00 Yes TAKE 1 TABLET BY MOUTH EVERY 8 HOURS NEEDED FOR NAUSEA OR VOMITING FOR UP TO 7 DAYS [facility] ondansetron 4 mg tablet 2024-0 1-18 00:00: 00 Yes TAKE 1 TABLET BY MOUTH EVERY 8 HOURS NEEDED FOR NAUSEA OR VOMITING FOR UP TO 7 DAYS [facility] ondansetron 4 mg tablet 2024-0 1-18 00:00: 00 Yes TAKE 1 TABLET BY MOUTH EVERY 8 HOURS NEEDED FOR NAUSEA OR VOMITING FOR UP TO 7 DAYS [facility] ondansetron 4 mg tablet 2024-0 1-18 00:00: 00 Yes TAKE 1 TABLET BY MOUTH EVERY 8 HOURS NEEDED FOR NAUSEA OR VOMITING FOR UP TO 7 DAYS [facility] ondansetron 4 mg tablet 2024-0 1-18 00:00: 00 Yes TAKE 1 TABLET BY MOUTH EVERY 8 HOURS NEEDED FOR NAUSEA OR VOMITING FOR UP TO 7 DAYS [facility] ondansetron 4 mg tablet 2024-0 1-18 00:00: 00 Yes TAKE 1 TABLET BY MOUTH EVERY 8 HOURS NEEDED FOR NAUSEA OR VOMITING FOR UP TO 7 DAYS [facility] 4-0 18 00:00: 00 Yes TAKE 1 TABLET BY MOUTH EVERY 8 HOURS NEEDED FOR NAUSEA OR VOMITING FOR UP TO 7 DAYS [facility] 4-0 18 00:00: 00 Yes TAKE 1 TABLET BY MOUTH EVERY 8 HOURS NEEDED FOR NAUSEA OR VOMITING FOR UP TO 7 DAYS [facility] 4-0 18 00:00: 00 Yes TAKE 1 TABLET BY MOUTH EVERY 8 HOURS NEEDED FOR NAUSEA OR VOMITING FOR UP TO 7 DAYS [facility] 4-0 18 00:00: 00 Yes TAKE 1 TABLET BY MOUTH EVERY 8 HOURS NEEDED FOR NAUSEA OR VOMITING FOR UP TO 7 DAYS [facility] 4-0 18 00:00: 00 Yes TAKE 1 TABLET BY MOUTH EVERY 8 HOURS NEEDED FOR NAUSEA OR VOMITING FOR UP TO 7 DAYS [facility] pantoprazol e 40 mg EC tablet 2023-0 18 00:00: 00 08-16 05:59 :00 Yes 40mg Take [address] tablet [address] [facility] pantoprazol e 40 mg EC tablet 2023-0 18 00:00: 00 08-16 05:59 :00 Yes 40mg Take [address] [facility] pantoprazol e 40 mg EC tablet 2023-0 18 00:00: 00 08-16 05:59 :00 Yes 40mg Take [address] [facility] pantoprazol e 40 mg EC tablet 2023-0 18 00:00: 00 08-16 05:59 :00 Yes 40mg Take [address] [facility] pantoprazol e 40 mg EC tablet 4-0 18 00:00: 00 08-16 05:59 :00 Yes 40mg Take [address] tablet [address] [facility] pantoprazol e 40 mg EC tablet 18 00:00: 00 08-16 05:59 :00 Yes 40mg Take [address] [facility] pantoprazol e 40 mg EC tablet 18 00:00: 00 08-16 05:59 :00 Yes 40mg Take [address] [facility] pantoprazol e 40 mg EC tablet 18 00:00: 00 09-17 00:00 :00 No 40mg Take [address] [facility] pantoprazol e 40 mg EC tablet 0 08-16 00:00: 00 09-17 00:00 :00 No 40mg Take [address] [facility] pantoprazol e 40 mg EC tablet 08-16 00:00: 00 09-17 00:00 :00 No 40mg Take [address] [facility] pantoprazol e 40 mg EC tablet 18 00:00: 00 09-17 00:00 :00 No 40mg Take [address] [facility] PROCTOFOAM HC rectal foam 0 1-15 00:00: 00 09-06 00:00 :00 No APPLY TOPICALLY TO THE AFFECTED AREA IN THE MORNING AND IN THE EVENING [facility] PROCTOFOAM HC rectal foam 2023-0 1-15 00:00: 00 09-06 00:00 :00 No APPLY TOPICALLY TO THE AFFECTED AREA IN THE MORNING AND IN THE EVENING [facility] PROCTOFOAM HC rectal foam 2023-0 1-15 00:00: 00 09-06 00:00 :00 No APPLY TOPICALLY TO THE AFFECTED AREA IN THE MORNING AND IN THE EVENING [facility] atorvastati n 20 mg tablet 2022-07 00:00: 00 09-06 00:00 :00 No 20mg Take [address] [facility] atorvastati n 20 mg tablet 2022-07 00:00: 00 09-06 00:00 :00 No 20mg Take [address] [facility] atorvastati n 20 mg tablet 2022-07 00:00: 00 09-06 00:00 :00 No 20mg Take [address] [facility] gentamicin injection 160 mg 2022-07 20:15: 00 07-18 19:54 :00 No [id number] 160mg [facility] cefTRIAXone (ROCEPHIN) injection 1,000 mg 2022-07 20:15: 00 07-18 19:52 :00 No [id number] 1000mg [facility] cefTRIAXone (ROCEPHIN) injection 1,000 mg 2022-07 20:15: 00 07-18 19:52 :00 No [id number] 1000mg 1,000 mg, Intramuscu lar, ONCE, 1 dose, On Sun07/18/23 at 1415, JAMES
Re ason for Anti-Infec tive: Surgical Prophylaxi s
Surgi stephanie Prophylaxi s: Genitourin shruthi
Dur ation of therapy: within [address] [facility] gentamicin injection 160 mg 2022-07 20:15: 00 07-18 19:54 :00 No [id number] 160mg 160 mg, Intramuscu lar, ONCE, 1 dose, On Sun07/18/23 at 1415, JAMES
Re ason for Anti-Infec tive: Surgical Prophylaxi s
Surgi stephanie Prophylaxi s: Genitourin shruthi
Dur ation of therapy: within [address] [facility] gentamicin injection 160 mg 2022-07 20:15: 00 07-18 19:54 :00 No [id number] 160mg [facility] cefTRIAXone (ROCEPHIN) injection 1,000 mg 2022-07 20:15: 00 07-18 19:52 :00 No [id number] [facility]IN[facility] 1,000 mg 2022-07 20:15: 00 07-18 19:52 :00 No [id number] 1000mg 1,000 mg, Intramuscu lar, ONCE, 1 dose, On Sun07/18/23 at 1415, JAMES
Re ason for Anti-Infec tive: Surgical Prophylaxi s
Surgi stephanie Prophylaxi s: Genitourin shruthi
Dur ation of therapy: within [address] [facility] gentamicin injection 160 mg 2022-07 20:15: 00 07-18 19:54 :00 No [id number] 160mg 160 mg, Intramuscu lar, ONCE, 1 dose, On Sun07/18/23 at 1415, JAMES
Re ason for Anti-Infec tive: Surgical Prophylaxi s
Surgi stephanie Prophylaxi s: Genitourin shruthi
Dur ation of therapy: within [address] [facility] ciprofloxac in HCl 500 mg tablet 2022-07 00:00: 00 07-18 00:00 :00 No [id number] 500mg Take 1 tablet by mouth every 12 (twelve) hours for [address] [facility] ciprofloxac in HCl 500 mg tablet 2022-07 00:00: 00 07-18 00:00 :00 No [id number] 500mg Take 1 tablet by mouth every 12 (twelve) hours for [address] [facility] gadobenate dimeglumine (MULTIHANCE -20 mL) injection 0.2 mL/kg 2022-07 16:00: 00 06-16 14:52 :00 No [id number] .2mL/kg 0.2 mL/kg, Intravenou s, ONCE, 1 dose, On 06/16/23 at 1000, Routine [facility] sennosides 8.6 mg tablet 2022-07 00:00: 00 05-31 04:59 :00 No 8.6mg Take 1 tablet [facility]. [facility] sennosides 8.6 mg tablet 2022-07 00:00: 00 05-31 04:59 :00 No 8.6mg Take 1 tablet by mouth. [facility] sennosides 8.6 mg tablet 2022-07 00:00: 00 05-31 04:59 :00 No 8.6mg Take 1 tablet by mouth. [facility] sennosides 8.6 mg tablet 2022-07 00:00: 00 05-31 04:59 :00 No 8.6mg Take 1 tablet by mouth. [facility] 20[facility]-07 00:00: 00 05-31 04:59 :00 No 8.6mg Take 1 tablet by mouth. [facility] 8.6 mg tablet 2022-07 00:00: 00 05-31 04:59 :00 No 8.6mg Take 1 tablet by mouth. [facility] sennosides 8.6 mg tablet 2022-07 00:00: 00 05-31 04:59 :00 No 8.6mg Take [address] [facility] sennosides 8.6 mg tablet 2022-07 00:00: 00 05-31 04:59 :00 No 8.6mg Take 1 tablet by mouth. [facility] sennosides 8.6 mg tablet 2022-07 00:00: 00 05-31 04:59 :00 No 8.6mg Take 1 tablet by mouth. [facility]6 [facility] 2022-07 00:00: 00 05-31 04:59 :00 No 8.6mg Take 1 tablet by mouth. [facility] 8.6 mg tablet 2022-07 00:00: 00 05-31 04:59 :00 No 8.6mg Take [address] [facility] sennosides 8.6 mg tablet 2022-07 00:00: 00 05-31 04:59 :00 No 8.6mg Take [address] [facility] sennosides 8.6 mg tablet 2022-07 00:00: 00 05-31 04:59 :00 No 8.6mg Take [address] tablet [address] [facility] sennosides 8.6 mg tablet 2022-07 00:00: 00 05-31 04:59 :00 No 8.6mg Take [address] tablet [address] [facility] sennosides 8.6 mg tablet 2022-07 00:00: 00 05-31 04:59 :00 No 8.6mg Take [address] tablet [address] [facility] sennosides 8.6 mg tablet 2022-07 00:00: 00 05-31 04:59 :00 No 8.6mg Take [address] [facility] sennosides 8.6 mg tablet 2022-07 00:00: 00 05-31 04:59 :00 No 8.6mg Take [address] tablet [address] [facility] sennosides 8.6 mg tablet 2022-07 00:00: 00 05-31 04:59 :00 No 8.6mg Take [address] tablet [address] [facility] carvediloL 12.5 mg tablet 11-15 00:00: 00 11-15 04:59 :00 No 12.5mg Take 1 tablet by mouth in the morning and 1 tablet in the evening. Take with meals. [facility] carvediloL 12.5 mg tablet 11-15 00:00: 00 11-15 04:59 :00 No 12.5mg Take 1 tablet by mouth in the morning and 1 tablet in the evening. Take with meals. [facility] carvediloL 12.5 mg tablet 11-15 00:00: 00 11-15 04:59 :00 No 12.5mg Take 1 tablet by mouth in the morning and 1 tablet in the evening. Take with meals. [facility] carvediloL 12.5 mg tablet 0 11-15 00:00: 00 11-15 04:59 :00 No 12.5mg Take 1 tablet by mouth in the morning and 1 tablet in the evening. Take with meals. [facility] carvediloL 12.5 mg tablet 0 11-15 00:00: 00 11-15 04:59 :00 No 12.5mg Take 1 tablet by mouth in the morning and 1 tablet in the evening. Take with meals. [facility] carvediloL 12.5 mg tablet 11-15 00:00: 00 11-15 04:59 :00 No 12.5mg Take 1 tablet by mouth in the morning and 1 tablet in the evening. Take with meals. [facility] carvediloL 12.5 mg tablet 11-15 00:00: 00 11-15 04:59 :00 No 12.5mg Take 1 tablet by mouth in the morning and 1 tablet in the evening. Take with meals. [facility] carvediloL 12.5 mg tablet 11-15 00:00: 00 11-15 04:59 :00 No 12.5mg Take 1 tablet by mouth in the morning and 1 tablet in the evening. Take with meals. [facility] carvediloL 12.5 mg tablet 11-15 00:00: 00 11-15 04:59 :00 No 12.5mg Take 1 tablet by mouth in the morning and 1 tablet in the evening. Take with meals. [facility] carvediloL 12.5 mg tablet 0 11-15 00:00: 00 11-15 04:59 :00 No 12.5mg Take 1 tablet by mouth in the morning and 1 tablet in the evening. Take with meals. [facility] carvediloL 12.5 mg tablet 2022-0 11-15 00:00: 00 11-15 04:59 :00 No 12.5mg Take 1 tablet by mouth in the morning and 1 tablet in the evening. Take with meals. [facility] carvediloL 12.5 mg tablet 2022-0 11-15 00:00: 00 11-15 04:59 :00 No 12.5mg Take 1 tablet by mouth in the morning and 1 tablet in the evening. Take with meals. [facility] carvediloL 12.5 mg tablet 2022-0 11-15 00:00: 00 11-15 04:59 :00 No 12.5mg Take 1 tablet by mouth in the morning and 1 tablet in the evening. Take with meals. [facility] carvediloL 12.5 mg tablet 2022-0 11-15 00:00: 00 11-15 04:59 :00 No 12.5mg Take 1 tablet by mouth in the morning and 1 tablet in the evening. Take with meals. [facility] carvediloL 12.5 mg tablet 2022-0 11-15 00:00: 00 11-15 04:59 :00 No 12.5mg Take 1 tablet by mouth in the morning and 1 tablet in the evening. Take with meals. [facility] carvediloL 12.5 mg tablet 0 11-15 00:00: 00 11-15 04:59 :00 No 12.5mg Take 1 tablet by mouth in the morning and 1 tablet in the evening. Take with meals. [facility] carvediloL 12.5 mg tablet 2022-0 11-15 00:00: 00 11-15 04:59 :00 No 12.5mg Take 1 tablet by mouth in the morning and 1 tablet in the evening. Take with meals. [facility] carvediloL 12.5 mg tablet 2022-0 11-15 00:00: 00 11-15 04:59 :00 No 12.5mg Take 1 tablet by mouth in the morning and 1 tablet in the evening. Take with meals. [facility] valsartan-h ydrochlorot hiazide (DIOVAN-HCT ) 80-12.5 mg per tablet 04-02 21:09: 53 Yes 1{tbl} Take 1 tablet by mouth daily. [facility] carvedilol 6.25 mg tablet 04-02 21:09: 53 Yes 6.25mg Take 6.25 mg by mouth 2 (two) times daily with meals. [facility] atorvastati n 20 mg tablet 04-02 21:09: 53 Yes 20mg Take 20 mg by mouth at bedtime. [facility] tamsulosin 0.4 mg 24 hr capsule 04-02 21:09: 53 Yes .4mg Take 0.4 mg by mouth daily. [facility] busPIRone 15 mg tablet 04-02 21:09: 53 Yes 15mg Take 15 mg by mouth 2 (two) times daily. [facility] esomeprazol e 40 mg capsule 04-02 21:09: 53 Yes 40mg Take 40 mg by mouth daily with breakfast. [facility] Cholecalcif german, Vitamin D3, 5,000 unit capsule 04-02 21:09: 53 Yes Take by mouth. [facility] losartan 100 mg tablet 04-02 21:09: 53 Yes 100mg Take 100 mg by mouth daily. [facility] hydroCHLORO thiazide 25 mg tablet 04-02 21:09: 53 Yes 25mg Take 25 mg by mouth daily. [facility] valsartan-h ydrochlorot hiazide (DIOVAN-HCT ) 80-12.5 mg per tablet 04-02 21:09: 53 Yes 1{tbl} Take 1 tablet by mouth daily. [facility] carvedilol 6.25 mg tablet 04-02 21:09: 53 Yes 6.25mg Take 6.25 mg by mouth 2 (two) times daily with meals. [facility] atorvastati n 20 mg tablet 04-02 21:09: 53 Yes 20mg Take 20 mg by mouth at bedtime. [facility] tamsulosin 0.4 mg 24 hr capsule 04-02 21:09: 53 Yes .4mg Take 0.4 mg by mouth daily. [facility] busPIRone 15 mg tablet 04-02 21:09: 53 Yes 15mg Take 15 mg by mouth 2 (two) times daily. [facility] esomeprazol e 40 mg capsule 04-02 21:09: 53 Yes 40mg Take 40 mg by mouth daily with breakfast. [facility] Cholecalcif german, Vitamin D3, 5,000 unit capsule 04-02 21:09: 53 Yes Take by mouth. [facility] losartan 100 mg tablet 04-02 21:09: 53 Yes 100mg Take 100 mg by mouth daily. [facility] hydroCHLORO thiazide 25 mg tablet 04-02 21:09: 53 Yes 25mg Take 25 mg by mouth daily. [facility] valsartan-h ydrochlorot hiazide (DIOVAN-HCT ) 80-12.5 mg per tablet 04-02 21:09: 53 Yes 1{tbl} Take 1 tablet by mouth daily. [facility] carvedilol 6.25 mg tablet 04-02 21:09: 53 Yes 6.25mg Take 6.25 mg by mouth 2 (two) times daily with meals. [facility] atorvastati n 20 mg tablet 04-02 21:09: 53 Yes 20mg Take 20 mg by mouth at bedtime. [facility] tamsulosin 0.4 mg 24 hr capsule 04-02 21:09: 53 Yes .4mg Take 0.4 mg by mouth daily. [facility] busPIRone 15 mg tablet 04-02 21:09: 53 Yes 15mg Take 15 mg by mouth 2 (two) times daily. [facility] esomeprazol e 40 mg capsule 04-02 21:09: 53 Yes 40mg Take 40 mg by mouth daily with breakfast. [facility] Cholecalcif german, Vitamin D3, 5,000 unit capsule 04-02 21:09: 53 Yes Take by mouth. [facility] losartan 100 mg tablet 04-02 21:09: 53 Yes 100mg Take 100 mg by mouth daily. [facility] hydroCHLORO thiazide 25 mg tablet 04-02 21:09: 53 Yes 25mg Take 25 mg by mouth daily. [facility] valsartan-h ydrochlorot hiazide (DIOVAN-HCT ) 80-12.5 mg per tablet 04-02 21:09: 53 Yes 1{tbl} Take 1 tablet by mouth daily. [facility] carvedilol 6.25 mg tablet 04-02 21:09: 53 Yes 6.25mg Take 6.25 mg by mouth 2 (two) times daily with meals. [facility] atorvastati n 20 mg tablet 04-02 21:09: 53 Yes 20mg Take 20 mg by mouth at bedtime. [facility] tamsulosin 0.4 mg 24 hr capsule 04-02 21:09: 53 Yes .4mg Take 0.4 mg by mouth daily. [facility] busPIRone 15 mg tablet 04-02 21:09: 53 Yes 15mg Take 15 mg by mouth 2 (two) times daily. [facility] esomeprazol e 40 mg capsule 04-02 21:09: 53 Yes 40mg Take 40 mg by mouth daily with breakfast. [facility] Cholecalcif german, Vitamin D3, 5,000 unit capsule 04-02 21:09: 53 Yes Take by mouth. [facility] losartan 100 mg tablet 04-02 21:09: 53 Yes 100mg Take 100 mg by mouth daily. [facility] hydroCHLORO thiazide 25 mg tablet 04-02 21:09: 53 Yes 25mg Take 25 mg by mouth daily. [facility] valsartan-h ydrochlorot hiazide (DIOVAN-HCT ) 80-12.5 mg per tablet 04-02 16:09: 53 Yes 1{tbl} Take 1 tablet by mouth daily. [facility] carvedilol 6.25 mg tablet 04-02 16:09: 53 Yes 6.25mg Take 6.25 mg by mouth 2 (two) times daily with meals. [facility] atorvastati n 20 mg tablet 04-02 16:09: 53 Yes 20mg Take 20 mg by mouth at bedtime. [facility] tamsulosin 0.4 mg 24 hr capsule 04-02 16:09: 53 Yes .4mg Take 0.4 mg by mouth daily. [facility] busPIRone 15 mg tablet 04-02 16:09: 53 Yes 15mg Take 15 mg by mouth 2 (two) times daily. [facility] esomeprazol e 40 mg capsule 04-02 16:09: 53 Yes 40mg Take 40 mg by mouth daily with breakfast. [facility] Cholecalcif german, Vitamin D3, 5,000 unit capsule 04-02 16:09: 53 Yes Take by mouth. [facility] losartan 100 mg tablet 04-02 16:09: 53 Yes 100mg Take 100 mg by mouth daily. [facility] hydroCHLORO thiazide 25 mg tablet 04-02 16:09: 53 Yes 25mg Take 25 mg by mouth daily. [facility] valsartan-h ydrochlorot hiazide (DIOVAN-HCT ) 80-12.5 mg per tablet 04-02 16:09: 53 Yes 1{tbl} Take 1 tablet by mouth daily. [facility] carvedilol 6.25 mg tablet 04-02 16:09: 53 Yes 6.25mg Take 6.25 mg by mouth 2 (two) times daily with meals. [facility] atorvastati n 20 mg tablet 04-02 16:09: 53 Yes 20mg Take 20 mg by mouth at bedtime. [facility] tamsulosin 0.4 mg 24 hr capsule 04-02 16:09: 53 Yes .4mg Take 0.4 mg by mouth daily. [facility] busPIRone 15 mg tablet 04-02 16:09: 53 Yes 15mg Take 15 mg by mouth 2 (two) times daily. [facility] esomeprazol e 40 mg capsule 04-02 16:09: 53 Yes 40mg Take 40 mg by mouth daily with breakfast. [facility] Cholecalcif german, Vitamin D3, 5,000 unit capsule 04-02 16:09: 53 Yes Take by mouth. [facility] losartan 100 mg tablet 04-02 16:09: 53 Yes 100mg Take 100 mg by mouth daily. [facility] hydroCHLORO thiazide 25 mg tablet 04-02 16:09: 53 Yes 25mg Take 25 mg by mouth daily. [facility] valsartan-h ydrochlorot hiazide (DIOVAN-HCT ) 80-12.5 mg per tablet 04-02 16:09: 53 Yes 1{tbl} Take 1 tablet by mouth daily. [facility] carvedilol 6.25 mg tablet 04-02 16:09: 53 Yes 6.25mg Take 6.25 mg by mouth 2 (two) times daily with meals. [facility] atorvastati n 20 mg tablet 04-02 16:09: 53 Yes 20mg Take 20 mg by mouth at bedtime. [facility] tamsulosin 0.4 mg 24 hr capsule 04-02 16:09: 53 Yes .4mg Take 0.4 mg by mouth daily. [facility] busPIRone 15 mg tablet 04-02 16:09: 53 Yes 15mg Take 15 mg by mouth 2 (two) times daily. [facility] esomeprazol e 40 mg capsule 04-02 16:09: 53 Yes 40mg Take 40 mg by mouth daily with breakfast. [facility] Cholecalcif german, Vitamin D3, 5,000 unit capsule 04-02 16:09: 53 Yes Take by mouth. [facility] losartan 100 mg tablet 04-02 16:09: 53 Yes 100mg Take 100 mg by mouth daily. [facility] hydroCHLORO thiazide 25 mg tablet 04-02 16:09: 53 Yes 25mg Take 25 mg by mouth daily. [facility] valsartan-h ydrochlorot hiazide (DIOVAN-HCT ) 80-12.5 mg per tablet 04-02 16:09: 53 Yes 1{tbl} Take 1 tablet by mouth daily. [facility] carvedilol 6.25 mg tablet 04-02 16:09: 53 Yes 6.25mg Take 6.25 mg by mouth 2 (two) times daily with meals. [facility] atorvastati n 20 mg tablet 04-02 16:09: 53 Yes 20mg Take 20 mg by mouth at bedtime. [facility] tamsulosin 0.4 mg 24 hr capsule 04-02 16:09: 53 Yes .4mg Take 0.4 mg by mouth daily. [facility] busPIRone 15 mg tablet 04-02 16:09: 53 Yes 15mg Take 15 mg by mouth 2 (two) times daily. [facility] esomeprazol e 40 mg capsule 04-02 16:09: 53 Yes 40mg Take 40 mg by mouth daily with breakfast. [facility] Cholecalcif german, Vitamin D3, 5,000 unit capsule 04-02 16:09: 53 Yes Take by mouth. [facility] losartan 100 mg tablet 04-02 16:09: 53 Yes 100mg Take 100 mg by mouth daily. [facility] hydroCHLORO thiazide 25 mg tablet 04-02 16:09: 53 Yes 25mg Take 25 mg by mouth daily. [facility] valsartan-h ydrochlorot hiazide (DIOVAN-HCT ) 80-12.5 mg per tablet 04-02 16:09: 53 Yes 1{tbl} Take 1 tablet by mouth daily. [facility] carvedilol 6.25 mg tablet 04-02 16:09: 53 Yes 6.25mg Take 6.25 mg by mouth 2 (two) times daily with meals. [facility] atorvastati n 20 mg tablet 04-02 16:09: 53 Yes 20mg Take 20 mg by mouth at bedtime. [facility] tamsulosin 0.4 mg 24 hr capsule 04-02 16:09: 53 Yes .4mg Take 0.4 mg by mouth daily. [facility] busPIRone 15 mg tablet 04-02 16:09: 53 Yes 15mg Take 15 mg by mouth 2 (two) times daily. [facility] esomeprazol e 40 mg capsule 04-02 16:09: 53 Yes 40mg Take 40 mg by mouth daily with breakfast. [facility] Cholecalcif german, Vitamin D3, 5,000 unit capsule 04-02 16:09: 53 Yes Take by mouth. [facility] losartan 100 mg tablet 04-02 16:09: 53 Yes 100mg Take 100 mg by mouth daily. [facility] hydroCHLORO thiazide 25 mg tablet 04-02 16:09: 53 Yes 25mg Take 25 mg by mouth daily. [facility] valsartan-h ydrochlorot hiazide (DIOVAN-HCT ) 80-12.5 mg per tablet 04-02 16:09: 53 Yes 1{tbl} Take 1 tablet by mouth daily. [facility] carvedilol 6.25 mg tablet 04-02 16:09: 53 Yes 6.25mg Take 6.25 mg by mouth 2 (two) times daily with meals. [facility] atorvastati n 20 mg tablet 04-02 16:09: 53 Yes 20mg Take 20 mg by mouth at bedtime. [facility] tamsulosin 0.4 mg 24 hr capsule 04-02 16:09: 53 Yes .4mg Take 0.4 mg by mouth daily. [facility] busPIRone 15 mg tablet 04-02 16:09: 53 Yes 15mg Take 15 mg by mouth 2 (two) times daily. [facility] esomeprazol e 40 mg capsule 04-02 16:09: 53 Yes 40mg Take 40 mg by mouth daily with breakfast. [facility] Cholecalcif german, Vitamin D3, 5,000 unit capsule 04-02 16:09: 53 Yes Take by mouth. [facility] losartan 100 mg tablet 04-02 16:09: 53 Yes 100mg Take 100 mg by mouth daily. [facility] hydroCHLORO thiazide 25 mg tablet 04-02 16:09: 53 Yes 25mg Take 25 mg by mouth daily. [facility] valsartan-h ydrochlorot hiazide (DIOVAN-HCT ) 80-12.5 mg per tablet 04-02 16:09: 53 Yes 1{tbl} Take 1 tablet by mouth daily. [facility] carvedilol 6.25 mg tablet 04-02 16:09: 53 Yes 6.25mg Take 6.25 mg by mouth 2 (two) times daily with meals. [facility] atorvastati n 20 mg tablet 04-02 16:09: 53 Yes 20mg Take 20 mg by mouth at bedtime. [facility] tamsulosin 0.4 mg 24 hr capsule 04-02 16:09: 53 Yes .4mg Take 0.4 mg by mouth daily. [facility] busPIRone 15 mg tablet 04-02 16:09: 53 Yes 15mg Take 15 mg by mouth 2 (two) times daily. [facility] esomeprazol e 40 mg capsule 04-02 16:09: 53 Yes 40mg Take 40 mg by mouth daily with breakfast. [facility] Cholecalcif german, Vitamin D3, 5,000 unit capsule 04-02 16:09: 53 Yes Take by mouth. [facility] losartan 100 mg tablet 04-02 16:09: 53 Yes 100mg Take 100 mg by mouth daily. [facility] hydroCHLORO thiazide 25 mg tablet 04-02 16:09: 53 Yes 25mg Take 25 mg by mouth daily. [facility] valsartan-h ydrochlorot hiazide (DIOVAN-HCT ) 80-12.5 mg per tablet 04-02 16:09: 53 Yes 1{tbl} Take 1 tablet by mouth daily. [facility] carvedilol 6.25 mg tablet 04-02 16:09: 53 Yes 6.25mg Take 6.25 mg by mouth 2 (two) times daily with meals. [facility] atorvastati n 20 mg tablet 04-02 16:09: 53 Yes 20mg Take 20 mg by mouth at bedtime. [facility] tamsulosin 0.4 mg 24 hr capsule 04-02 16:09: 53 Yes .4mg Take 0.4 mg by mouth daily. [facility] busPIRone 15 mg tablet 04-02 16:09: 53 Yes 15mg Take 15 mg by mouth 2 (two) times daily. [facility] esomeprazol e 40 mg capsule 04-02 16:09: 53 Yes 40mg Take 40 mg by mouth daily with breakfast. [facility] Cholecalcif german, Vitamin D3, 5,000 unit capsule 04-02 16:09: 53 Yes Take by mouth. [facility] losartan 100 mg tablet 04-02 16:09: 53 Yes 100mg Take 100 mg by mouth daily. [facility] hydroCHLORO thiazide 25 mg tablet 04-02 16:09: 53 Yes 25mg Take 25 mg by mouth daily. [facility] valsartan-h ydrochlorot hiazide (DIOVAN-HCT ) 80-12.5 mg per tablet 04-02 16:09: 53 Yes 1{tbl} Take 1 tablet by mouth daily. [facility] carvedilol 6.25 mg tablet 04-02 16:09: 53 Yes 6.25mg Take 6.25 mg by mouth 2 (two) times daily with meals. [facility] atorvastati n 20 mg tablet 04-02 16:09: 53 Yes 20mg Take 20 mg by mouth at bedtime. [facility] tamsulosin 0.4 mg 24 hr capsule 04-02 16:09: 53 Yes .4mg Take 0.4 mg by mouth daily. [facility] busPIRone 15 mg tablet 04-02 16:09: 53 Yes 15mg Take 15 mg by mouth 2 (two) times daily. [facility] esomeprazol e 40 mg capsule 04-02 16:09: 53 Yes 40mg Take 40 mg by mouth daily with breakfast. [facility] Cholecalcif german, Vitamin D3, 5,000 unit capsule 04-02 16:09: 53 Yes Take by mouth. [facility] losartan 100 mg tablet 04-02 16:09: 53 Yes 100mg Take 100 mg by mouth daily. [facility] hydroCHLORO thiazide 25 mg tablet 04-02 16:09: 53 Yes 25mg Take 25 mg by mouth daily. [facility] valsartan-h ydrochlorot hiazide (DIOVAN-HCT ) 80-12.5 mg per tablet 04-02 16:09: 53 Yes 1{tbl} Take 1 tablet by mouth daily. [facility] carvedilol 6.25 mg tablet 04-02 16:09: 53 Yes 6.25mg Take 6.25 mg by mouth 2 (two) times daily with meals. [facility] atorvastati n 20 mg tablet 04-02 16:09: 53 Yes 20mg Take 20 mg by mouth at bedtime. [facility] tamsulosin 0.4 mg 24 hr capsule 04-02 16:09: 53 Yes .4mg Take 0.4 mg by mouth daily. [facility] busPIRone 15 mg tablet 04-02 16:09: 53 Yes 15mg Take 15 mg by mouth 2 (two) times daily. [facility] esomeprazol e 40 mg capsule 04-02 16:09: 53 Yes 40mg Take 40 mg by mouth daily with breakfast. [facility] Cholecalcif german, Vitamin D3, 5,000 unit capsule 04-02 16:09: 53 Yes Take by mouth. [facility] losartan 100 mg tablet 04-02 16:09: 53 Yes 100mg Take 100 mg by mouth daily. [facility] hydroCHLORO thiazide 25 mg tablet 04-02 16:09: 53 Yes 25mg Take 25 mg by mouth daily. [facility] valsartan-h ydrochlorot hiazide (DIOVAN-HCT ) 80-12.5 mg per tablet 04-02 16:09: 53 Yes 1{tbl} Take 1 tablet by mouth daily. [facility] carvedilol 6.25 mg tablet 04-02 16:09: 53 Yes 6.25mg Take 6.25 mg by mouth 2 (two) times daily with meals. [facility] atorvastati n 20 mg tablet 04-02 16:09: 53 Yes 20mg Take 20 mg by mouth at bedtime. [facility] tamsulosin 0.4 mg 24 hr capsule 04-02 16:09: 53 Yes .4mg Take 0.4 mg by mouth daily. [facility] busPIRone 15 mg tablet 04-02 16:09: 53 Yes 15mg Take 15 mg by mouth 2 (two) times daily. [facility] esomeprazol e 40 mg capsule 04-02 16:09: 53 Yes 40mg Take 40 mg by mouth daily with breakfast. [facility] Cholecalcif german, Vitamin D3, 5,000 unit capsule 04-02 16:09: 53 Yes Take by mouth. [facility] losartan 100 mg tablet 04-02 16:09: 53 Yes 100mg Take 100 mg by mouth daily. [facility] hydroCHLORO thiazide 25 mg tablet 04-02 16:09: 53 Yes 25mg Take 25 mg by mouth daily. [facility] valsartan-h ydrochlorot hiazide (DIOVAN-HCT ) 80-12.5 mg per tablet 04-02 16:09: 53 Yes 1{tbl} Take 1 tablet by mouth daily. [facility] carvedilol 6.25 mg tablet 04-02 16:09: 53 Yes 6.25mg Take 6.25 mg by mouth 2 (two) times daily with meals. [facility] atorvastati n 20 mg tablet 04-02 16:09: 53 Yes 20mg Take 20 mg by mouth at bedtime. [facility] tamsulosin 0.4 mg 24 hr capsule 04-02 16:09: 53 Yes .4mg Take 0.4 mg by mouth daily. [facility] busPIRone 15 mg tablet 04-02 16:09: 53 Yes 15mg Take 15 mg by mouth 2 (two) times daily. [facility] esomeprazol e 40 mg capsule 04-02 16:09: 53 Yes 40mg Take 40 mg by mouth daily with breakfast. [facility] Cholecalcif german, Vitamin D3, 5,000 unit capsule 04-02 16:09: 53 Yes Take by mouth. [facility] losartan 100 mg tablet 04-02 16:09: 53 Yes 100mg Take 100 mg by mouth daily. [facility] hydroCHLORO thiazide 25 mg tablet 04-02 16:09: 53 Yes 25mg Take 25 mg by mouth daily. [facility] valsartan-h ydrochlorot hiazide (DIOVAN-HCT ) 80-12.5 mg per tablet 04-02 16:09: 53 Yes 1{tbl} Take 1 tablet by mouth daily. [facility] carvedilol 6.25 mg tablet 04-02 16:09: 53 Yes 6.25mg Take 6.25 mg by mouth 2 (two) times daily with meals. [facility] atorvastati n 20 mg tablet 04-02 16:09: 53 Yes 20mg Take 20 mg by mouth at bedtime. [facility] tamsulosin 0.4 mg 24 hr capsule 04-02 16:09: 53 Yes .4mg Take 0.4 mg by mouth daily. [facility] busPIRone 15 mg tablet 04-02 16:09: 53 Yes 15mg Take 15 mg by mouth 2 (two) times daily. [facility] esomeprazol e 40 mg capsule 04-02 16:09: 53 Yes 40mg Take 40 mg by mouth daily with breakfast. [facility] Cholecalcif german, Vitamin D3, 5,000 unit capsule 04-02 16:09: 53 Yes Take by mouth. [facility] losartan 100 mg tablet 04-02 16:09: 53 Yes 100mg Take 100 mg by mouth daily. [facility] hydroCHLORO thiazide 25 mg tablet 04-02 16:09: 53 Yes 25mg Take 25 mg by mouth daily. [facility] valsartan-h ydrochlorot hiazide (DIOVAN-HCT ) 80-12.5 mg per tablet 04-02 16:09: 53 Yes 1{tbl} Take 1 tablet by mouth daily. [facility] carvedilol 6.25 mg tablet 04-02 16:09: 53 Yes 6.25mg Take 6.25 mg by mouth 2 (two) times daily with meals. [facility] atorvastati n 20 mg tablet 04-02 16:09: 53 Yes 20mg Take 20 mg by mouth at bedtime. [facility] tamsulosin 0.4 mg 24 hr capsule 04-02 16:09: 53 Yes .4mg Take 0.4 mg by mouth daily. [facility] busPIRone 15 mg tablet 04-02 16:09: 53 Yes 15mg Take 15 mg by mouth 2 (two) times daily. [facility] esomeprazol e 40 mg capsule 04-02 16:09: 53 Yes 40mg Take 40 mg by mouth daily with breakfast. [facility] Cholecalcif german, Vitamin D3, 5,000 unit capsule 04-02 16:09: 53 Yes Take by mouth. [facility] losartan 100 mg tablet 04-02 16:09: 53 Yes 100mg Take 100 mg by mouth daily. [facility] hydroCHLORO thiazide 25 mg tablet 04-02 16:09: 53 Yes 25mg Take 25 mg by mouth daily. [facility] valsartan-h ydrochlorot hiazide (DIOVAN-HCT ) 80-12.5 mg per tablet 04-02 16:09: 53 Yes 1{tbl} Take 1 tablet by mouth daily. [facility] carvedilol 6.25 mg tablet 04-02 16:09: 53 Yes 6.25mg Take 6.25 mg by mouth 2 (two) times daily with meals. [facility] atorvastati n 20 mg tablet 04-02 16:09: 53 Yes 20mg Take 20 mg by mouth at bedtime. [facility] tamsulosin 0.4 mg 24 hr capsule 04-02 16:09: 53 Yes .4mg Take 0.4 mg by mouth daily. [facility] busPIRone 15 mg tablet 04-02 16:09: 53 Yes 15mg Take 15 mg by mouth 2 (two) times daily. [facility] esomeprazol e 40 mg capsule 04-02 16:09: 53 Yes 40mg Take 40 mg by mouth daily with breakfast. [facility] Cholecalcif german, Vitamin D3, 5,000 unit capsule 04-02 16:09: 53 Yes Take by mouth. [facility] losartan 100 mg tablet 04-02 16:09: 53 Yes 100mg Take 100 mg by mouth daily. [facility] hydroCHLORO thiazide 25 mg tablet 04-02 16:09: 53 Yes 25mg Take 25 mg by mouth daily. [facility] valsartan-h ydrochlorot hiazide (DIOVAN-HCT ) 80-12.5 mg per tablet 04-02 16:09: 53 Yes 1{tbl} Take 1 tablet by mouth daily. [facility] carvedilol 6.25 mg tablet 04-02 16:09: 53 Yes 6.25mg Take 6.25 mg by mouth 2 (two) times daily with meals. [facility] atorvastati n 20 mg tablet 04-02 16:09: 53 Yes 20mg Take 20 mg by mouth at bedtime. [facility] tamsulosin 0.4 mg 24 hr capsule 04-02 16:09: 53 Yes .4mg Take 0.4 mg by mouth daily. [facility] busPIRone 15 mg tablet 04-02 16:09: 53 Yes 15mg Take 15 mg by mouth 2 (two) times daily. [facility] esomeprazol e 40 mg capsule 04-02 16:09: 53 Yes 40mg Take 40 mg by mouth daily with breakfast. [facility] Cholecalcif german, Vitamin D3, 5,000 unit capsule 04-02 16:09: 53 Yes Take by mouth. [facility] losartan 100 mg tablet 04-02 16:09: 53 Yes 100mg Take 100 mg by mouth daily. [facility] hydroCHLORO thiazide 25 mg tablet 04-02 16:09: 53 Yes 25mg Take 25 mg by mouth daily. [facility] valsartan-h ydrochlorot hiazide (DIOVAN-HCT ) 80-12.5 mg per tablet 04-02 16:09: 53 Yes 1{tbl} Take 1 tablet by mouth daily. [facility] carvedilol 6.25 mg tablet 04-02 16:09: 53 Yes 6.25mg Take 6.25 mg by mouth 2 (two) times daily with meals. [facility] atorvastati n 20 mg tablet 04-02 16:09: 53 Yes 20mg Take 20 mg by mouth at bedtime. [facility] tamsulosin 0.4 mg 24 hr capsule 04-02 16:09: 53 Yes .4mg Take 0.4 mg by mouth daily. [facility] busPIRone 15 mg tablet 04-02 16:09: 53 Yes 15mg Take 15 mg by mouth 2 (two) times daily. [facility] esomeprazol e 40 mg capsule 04-02 16:09: 53 Yes 40mg Take 40 mg by mouth daily with breakfast. [facility] Cholecalcif german, Vitamin D3, 5,000 unit capsule 04-02 16:09: 53 Yes Take by mouth. [facility] losartan 100 mg tablet 04-02 16:09: 53 Yes 100mg Take 100 mg by mouth daily. [facility] hydroCHLORO thiazide 25 mg tablet 04-02 16:09: 53 Yes 25mg Take 25 mg by mouth daily. [facility] valsartan-h ydrochlorot hiazide (DIOVAN-HCT ) 80-12.5 mg per tablet 04-02 16:09: 53 Yes 1{tbl} Take 1 tablet by mouth daily. [facility] carvedilol 6.25 mg tablet 04-02 16:09: 53 Yes 6.25mg Take 6.25 mg by mouth 2 (two) times daily with meals. [facility] atorvastati n 20 mg tablet 04-02 16:09: 53 Yes 20mg Take 20 mg by mouth at bedtime. [facility] tamsulosin 0.4 mg 24 hr capsule 04-02 16:09: 53 Yes .4mg Take 0.4 mg by mouth daily. [facility] busPIRone 15 mg tablet 04-02 16:09: 53 Yes 15mg Take 15 mg by mouth 2 (two) times daily. [facility] esomeprazol e 40 mg capsule 04-02 16:09: 53 Yes 40mg Take 40 mg by mouth daily with breakfast. [facility] Cholecalcif german, Vitamin D3, 5,000 unit capsule 04-02 16:09: 53 Yes Take by mouth. [facility] losartan 100 mg tablet 04-02 16:09: 53 Yes 100mg Take 100 mg by mouth daily. [facility] hydroCHLORO thiazide 25 mg tablet 04-02 16:09: 53 Yes 25mg Take 25 mg by mouth daily. [facility] valsartan-h ydrochlorot hiazide (DIOVAN-HCT ) 80-12.5 mg per tablet 04-02 16:09: 53 Yes 1{tbl} Take 1 tablet by mouth daily. [facility] carvedilol 6.25 mg tablet 04-02 16:09: 53 Yes 6.25mg Take 6.25 mg by mouth 2 (two) times daily with meals. [facility] atorvastati n 20 mg tablet 04-02 16:09: 53 Yes 20mg Take 20 mg by mouth at bedtime. [facility] tamsulosin 0.4 mg 24 hr capsule 04-02 16:09: 53 Yes .4mg Take 0.4 mg by mouth daily. [facility] busPIRone 15 mg tablet 04-02 16:09: 53 Yes 15mg Take 15 mg by mouth 2 (two) times daily. [facility] esomeprazol e 40 mg capsule 04-02 16:09: 53 Yes 40mg Take 40 mg by mouth daily with breakfast. [facility] Cholecalcif german, Vitamin D3, 5,000 unit capsule 04-02 16:09: 53 Yes Take by mouth. [facility] losartan 100 mg tablet 04-02 16:09: 53 Yes 100mg Take 100 mg by mouth daily. [facility] hydroCHLORO thiazide 25 mg tablet 04-02 16:09: 53 Yes 25mg Take 25 mg by mouth daily. [facility] valsartan-h ydrochlorot hiazide (DIOVAN-HCT ) 80-12.5 mg per tablet 04-02 16:07: 15 Yes 1{tbl} Take 1 tablet by mouth daily. [facility] carvedilol 6.25 mg tablet 04-02 16:07: 15 Yes 6.25mg Take 6.25 mg by mouth 2 (two) times daily with meals. [facility] atorvastati n 20 mg tablet 04-02 16:07: 15 Yes 20mg Take 20 mg by mouth at bedtime. [facility] tamsulosin 0.4 mg 24 hr capsule 04-02 16:07: 15 Yes .4mg Take 0.4 mg by mouth daily. [facility] busPIRone 15 mg tablet 04-02 16:07: 15 Yes 15mg Take 15 mg by mouth 2 (two) times daily. [facility] esomeprazol e 40 mg capsule 04-02 16:07: 15 Yes 40mg Take 40 mg by mouth daily with breakfast. [facility] Cholecalcif german, Vitamin D3, 5,000 unit capsule 04-02 16:07: 15 Yes Take by mouth. [facility] losartan 100 mg tablet 04-02 16:07: 15 Yes 100mg Take 100 mg by mouth daily. [facility] hydroCHLORO thiazide 25 mg tablet 04-02 16:07: 15 Yes 25mg Take 25 mg by mouth daily. [facility] lactated ringers IV infusion 1,000 mL 04-02 14:30: 00 Yes 1000mL at 75 mL/hr, 1,000 mL, IV Infusion, CONTINUOUS , Starting Sun04/02/20 at 0930, Until Discontinu ed, Routine, PACU [facility] FENTanyl PF (SUBLIMAZE (PF)) injection 25 mcg 04-02 14:27: 36 Yes 25ug 25 mcg, Slow IV Push, Q5MIN PRN, 4 doses, Starting Sun04/02/20 at 0927, Until Discontinu ed, Routine, Pain (scale 7-10), PACU [facility] FENTanyl PF (SUBLIMAZE (PF)) injection 25 mcg 04-02 14:27: 36 Yes 25ug 25 mcg, Slow IV Push, Q5MIN PRN, 4 doses, Starting Sun04/02/20 at 0927, Until Discontinu ed, Routine, Pain (scale 4-6), PACU [facility] ondansetron (ZOFRAN (PF)) injection 4 mg 04-02 14:27: 36 Yes 4mg 4 mg, Slow IV Push, PRN, 1 dose, Starting Sun04/02/20 at 09, Until Discontinu ed, Routine, Nausea and Vomiting (N/V), PACU [facility] lactated ringers IV infusion 1,000 mL 04-02 12:00: 00 04-02 12:08 :00 No 1000mL at 20 mL/hr, 1,000 mL, IV Infusion, ONCE, 1 dose, Sun04/02/20 at 0700, Routine, DSU Pre-op [facility] oxybutynin chloride 5 mg tablet 04-02 00:00: 00 04-13 04:59 :00 No [id number] 5mg Take 1 tablet by mouth 3 (three) times daily for 10 days. For bladder spasms or stent pain. [facility] oxybutynin chloride 5 mg tablet 04-02 00:00: 00 04-13 04:59 :00 No [id number] 5mg Take 1 tablet by mouth 3 (three) times daily for 10 days. For bladder spasms or stent pain. [facility] tamsulosin 0.4 mg 24 hr capsule 04-01 15:58: 51 Yes .4mg Take 0.4 mg by mouth daily. [facility] tamsulosin 0.4 mg 24 hr capsule 04-01 15:58: 51 Yes .4mg Take 0.4 mg by mouth daily. [facility] tamsulosin 0.4 mg 24 hr capsule 04-01 15:58: 51 Yes .4mg Take 0.4 mg by mouth daily. [facility] carvedilol 6.25 mg tablet 04-01 15:56: 50 Yes 6.25mg Take 6.25 mg by mouth 2 (two) times daily with meals. [facility] atorvastati n 20 mg tablet 04-01 15:56: 50 Yes 20mg Take 20 mg by mouth at bedtime. [facility] busPIRone 15 mg tablet 04-01 15:56: 50 Yes 15mg Take 15 mg by mouth 2 (two) times daily. [facility] esomeprazol e 40 mg capsule 04-01 15:56: 50 Yes 40mg Take 40 mg by mouth daily with breakfast. [facility] Cholecalcif german, Vitamin D3, 5,000 unit capsule 04-01 15:56: 50 Yes Take by mouth. [facility] losartan 100 mg tablet 04-01 15:56: 50 Yes 100mg Take 100 mg by mouth daily. [facility] hydroCHLORO thiazide 25 mg tablet 04-01 15:56: 50 Yes 25mg Take 25 mg by mouth daily. [facility] carvedilol 6.25 mg tablet 04-01 15:56: 50 Yes 6.25mg Take 6.25 mg by mouth 2 (two) times daily with meals. [facility] atorvastati n 20 mg tablet 04-01 15:56: 50 Yes 20mg Take 20 mg by mouth at bedtime. [facility] busPIRone 15 mg tablet 04-01 15:56: 50 Yes 15mg Take 15 mg by mouth 2 (two) times daily. [facility] esomeprazol e 40 mg capsule 04-01 15:56: 50 Yes 40mg Take 40 mg by mouth daily with breakfast. [facility] Cholecalcif german, Vitamin D3, 5,000 unit capsule 04-01 15:56: 50 Yes Take by mouth. [facility] losartan 100 mg tablet 04-01 15:56: 50 Yes 100mg Take 100 mg by mouth daily. [facility] hydroCHLORO thiazide 25 mg tablet 04-01 15:56: 50 Yes 25mg Take 25 mg by mouth daily. [facility] carvedilol 6.25 mg tablet 04-01 15:56: 50 Yes 6.25mg Take 6.25 mg by mouth 2 (two) times daily with meals. [facility] atorvastati n 20 mg tablet 04-01 15:56: 50 Yes 20mg Take 20 mg by mouth at bedtime. [facility] busPIRone 15 mg tablet 04-01 15:56: 50 Yes 15mg Take 15 mg by mouth 2 (two) times daily. [facility] esomeprazol e 40 mg capsule 04-01 15:56: 50 Yes 40mg Take 40 mg by mouth daily with breakfast. [facility] Cholecalcif german, Vitamin D3, 5,000 unit capsule 04-01 15:56: 50 Yes Take by mouth. [facility] losartan 100 mg tablet 04-01 15:56: 50 Yes 100mg Take 100 mg by mouth daily. [facility] hydroCHLORO thiazide 25 mg tablet 04-01 15:56: 50 Yes 25mg Take 25 mg by mouth daily. [facility] levoFLOXaci n (LEVAQUIN) tablet 500 mg 03-01 16:17: [id number] [facility] levoFLOXaci n (LEVAQUIN) tablet 500 mg 03-01 16:17: [id number] [facility] levoFLOXaci n (LEVAQUIN) tablet 500 mg 03-01 16:17: [id number] [facility] levoFLOXaci n (LEVAQUIN) tablet 500 mg 03-01 16:17: [id number] [facility] levoFLOXaci n (LEVAQUIN) tablet 500 mg 03-01 16:17: [id number] [facility] levoFLOXaci n (LEVAQUIN) tablet 500 mg 03-01 16:17: [id number] [facility] levoFLOXaci n (LEVAQUIN) tablet 500 mg 03-01 16:17: 33 Yes [id number] 500mg [facility] levoFLOXaci n (LEVAQUIN) tablet 500 mg 2020-0 8-03 16:17: 33 Yes [id number] 500mg [facility] levoFLOXaci n (LEVAQUIN) tablet 500 mg 2020-0 8-03 16:17: 33 Yes [id number] 500mg [facility] levoFLOXaci n (LEVAQUIN) tablet 500 mg 2020-0 8-03 16:17: 33 Yes [id number] 500mg [facility] levoFLOXaci n (LEVAQUIN) tablet 500 mg 2020-0 8-03 16:17: 33 Yes [id number] 500mg [facility] levoFLOXaci n (LEVAQUIN) tablet 500 mg 2020-0 8-03 16:17: 33 Yes [id number] 500mg [facility] levoFLOXaci n (LEVAQUIN) tablet 500 mg 2020-0 8-03 16:17: 33 Yes [id number] 500mg [facility] levoFLOXaci n (LEVAQUIN) tablet 500 mg 2020-0 8-03 16:17: 33 Yes [id number] 500mg [facility] levoFLOXaci n (LEVAQUIN) tablet 500 mg 2020-0 8-03 16:17: 33 Yes [id number] 500mg [facility] levoFLOXaci n (LEVAQUIN) tablet 500 mg 2020-0 8-03 16:17: 33 Yes [id number] 500mg [facility] levoFLOXaci n (LEVAQUIN) tablet 500 mg 2020-0 8-03 16:17: 33 Yes [id number] 500mg [facility] levoFLOXaci n (LEVAQUIN) tablet 500 mg 2020-0 8-03 16:17: 33 Yes [id number] 500mg [facility] levoFLOXaci n (LEVAQUIN) tablet 500 mg 2020-0 8-03 16:17: 33 Yes [id number] 500mg [facility] levoFLOXaci n (LEVAQUIN) tablet 500 mg 2020-0 8-03 16:17: 33 Yes [id number] 500mg [facility] levoFLOXaci n (LEVAQUIN) tablet 500 mg 2020-0 8-03 16:17: 33 Yes [id number] 500mg [facility] levoFLOXaci n (LEVAQUIN) tablet 500 mg 2020-0 8-03 16:17: 33 Yes [id number] 500mg [facility] [facility] levoFLOXaci n (LEVAQUIN) tablet 500 mg 2020-0 8-03 16:17: 33 Yes [id number] 500mg [facility] levoFLOXaci n (LEVAQUIN) tablet 500 mg 2020-0 8 16:17: 33 Yes [id number] 500mg [facility] levoFLOXaci n (LEVAQUIN) tablet 500 mg 2020-0 8- 16:17: 33 Yes [id number] 500mg [facility] levoFLOXaci n (LEVAQUIN) tablet 500 mg 2020-0 8-03 16:17: 33 Yes [id number] 500mg [facility] levoFLOXaci n (LEVAQUIN) tablet 500 mg 2020-0 803 16:17: 33 Yes [id number] 500mg [facility] levoFLOXaci n (LEVAQUIN) tablet 500 mg 2020-0 8-03 16:17: 33 Yes [id number] 500mg [facility] levoFLOXaci n (LEVAQUIN) tablet 500 mg 2020-0 803 16:17: 33 Yes [id number] 500mg [facility] levoFLOXaci n (LEVAQUIN) tablet 500 mg 2020-0 8-03 16:17: 33 Yes [id number] 500mg [facility] levoFLOXaci n (LEVAQUIN) tablet 500 mg 2020-0 8-03 16:17: 33 Yes [id number] 500mg [facility] levoFLOXaci n (LEVAQUIN) tablet 500 mg 2020-0 8-03 16:17: 33 Yes [id number] 500mg [facility] levoFLOXaci n (LEVAQUIN) tablet 500 mg 2020-0 8-03 16:17: 33 Yes [id number] 500mg [facility] levoFLOXaci n (LEVAQUIN) tablet 500 mg 2020-0 8-03 16:17: 33 Yes [id number] 500[facility] 500 mg 03-01 16:17: [id number] [facility] levoFLOXaci n (LEVAQUIN) tablet 500 mg 03-01 16:17: [id number] [facility] levoFLOXaci n (LEVAQUIN) tablet 500 mg 03-01 16:17: [id number] [facility] levoFLOXaci n (LEVAQUIN) tablet 500 mg 03-01 16:17: [id number] [facility] levoFLOXaci n (LEVAQUIN) tablet 500 mg 03-01 16:17: [id number] [facility] tamsulosin 0.4 mg 24 hr capsule 08-01 19:21: 22 Yes .4mg Take 0.4 mg by mouth daily. [facility] busPIRone 15 mg tablet 08-01 19:21: 22 Yes 15mg Take 15 mg by mouth 2 (two) times daily. [facility] esomeprazol e 40 mg capsule 08-01 19:21: 22 Yes 40mg Take 40 mg by mouth daily with breakfast. [facility] Cholecalcif german, Vitamin D3, 5,000 unit capsule 08-01 19:21: 22 Yes Take by mouth. [facility] losartan 100 mg tablet 08-01 19:21: 22 Yes 100mg Take 100 mg by mouth daily. [facility] valsartan-h ydrochlorot hiazide (DIOVAN-HCT ) 80-12.5 mg per tablet 08-01 19:21: 22 Yes 1{tbl} Take 1 tablet by mouth daily. [facility] tamsulosin 0.4 mg 24 hr capsule 08-01 19:21: 22 Yes .4mg Take 0.4 mg by mouth daily. [facility] busPIRone 15 mg tablet 08-01 19:21: 22 Yes 15mg Take 15 mg by mouth 2 (two) times daily. [facility] esomeprazol e 40 mg capsule 08-01 19:21: 22 Yes 40mg Take 40 mg by mouth daily with breakfast. [facility] Cholecalcif german, Vitamin D3, 5,000 unit capsule 08-01 19:21: 22 Yes Take by mouth. [facility] losartan 100 mg tablet 08-01 19:21: 22 Yes 100mg Take 100 mg by mouth daily. [facility] valsartan-h ydrochlorot hiazide (DIOVAN-HCT ) 80-12.5 mg per tablet 08-01 19:21: 22 Yes 1{tbl} Take 1 tablet by mouth daily. [facility] tamsulosin 0.4 mg 24 hr capsule 08-01 19:21: 22 Yes .4mg Take 0.4 mg by mouth daily. [facility] busPIRone 15 mg tablet 08-01 19:21: 22 Yes 15mg Take 15 mg by mouth 2 (two) times daily. [facility] esomeprazol e 40 mg capsule 08-01 19:21: 22 Yes 40mg Take 40 mg by mouth daily with breakfast. [facility] Cholecalcif german, Vitamin D3, 5,000 unit capsule 08-01 19:21: 22 Yes Take by mouth. [facility] losartan 100 mg tablet 08-01 19:21: 22 Yes 100mg Take 100 mg by mouth daily. [facility] valsartan-h ydrochlorot hiazide (DIOVAN-HCT ) 80-12.5 mg per tablet 08-01 19:21: 22 Yes 1{tbl} Take 1 tablet by mouth daily. [facility] tamsulosin 0.4 mg 24 hr capsule 08-01 19:21: 22 Yes .4mg Take 0.4 mg by mouth daily. [facility] busPIRone 15 mg tablet 08-01 19:21: 22 Yes 15mg Take 15 mg by mouth 2 (two) times daily. [facility] esomeprazol e 40 mg capsule 08-01 19:21: 22 Yes 40mg Take 40 mg by mouth daily with breakfast. [facility] Cholecalcif german, Vitamin D3, 5,000 unit capsule 08-01 19:21: 22 Yes Take by mouth. [facility] losartan 100 mg tablet 08-01 19:21: 22 Yes 100mg Take 100 mg by mouth daily. [facility] valsartan-h ydrochlorot hiazide (DIOVAN-HCT ) 80-12.5 mg per tablet 08-01 19:21: 22 Yes 1{tbl} Take 1 tablet by mouth daily. [facility] tamsulosin 0.4 mg 24 hr capsule 08-01 19:21: 22 Yes .4mg Take 0.4 mg by mouth daily. [facility] busPIRone 15 mg tablet 08-01 19:21: 22 Yes 15mg Take 15 mg by mouth 2 (two) times daily. [facility] esomeprazol e 40 mg capsule 08-01 19:21: 22 Yes 40mg Take 40 mg by mouth daily with breakfast. [facility] Cholecalcif german, Vitamin D3, 5,000 unit capsule 08-01 19:21: 22 Yes Take by mouth. [facility] losartan 100 mg tablet 08-01 19:21: 22 Yes 100mg Take 100 mg by mouth daily. [facility] valsartan-h ydrochlorot hiazide (DIOVAN-HCT ) 80-12.5 mg per tablet 08-01 19:21: 22 Yes 1{tbl} Take 1 tablet by mouth daily. [facility] tamsulosin 0.4 mg 24 hr capsule 08-01 19:21: 22 Yes .4mg Take 0.4 mg by mouth daily. [facility] busPIRone 15 mg tablet 08-01 19:21: 22 Yes 15mg Take 15 mg by mouth 2 (two) times daily. [facility] esomeprazol e 40 mg capsule 08-01 19:21: 22 Yes 40mg Take 40 mg by mouth daily with breakfast. [facility] Cholecalcif german, Vitamin D3, 5,000 unit capsule 08-01 19:21: 22 Yes Take by mouth. [facility] losartan 100 mg tablet 08-01 19:21: 22 Yes 100mg Take 100 mg by mouth daily. [facility] valsartan-h ydrochlorot hiazide (DIOVAN-HCT ) 80-12.5 mg per tablet 08-01 19:21: 22 Yes 1{tbl} Take 1 tablet by mouth daily. [facility] tamsulosin 0.4 mg 24 hr capsule 08-01 19:21: 22 Yes .4mg Take 0.4 mg by mouth daily. [facility] busPIRone 15 mg tablet 08-01 19:21: 22 Yes 15mg Take 15 mg by mouth 2 (two) times daily. [facility] esomeprazol e 40 mg capsule 08-01 19:21: 22 Yes 40mg Take 40 mg by mouth daily with breakfast. [facility] Cholecalcif german, Vitamin D3, 5,000 unit capsule 08-01 19:21: 22 Yes Take by mouth. [facility] losartan 100 mg tablet 08-01 19:21: 22 Yes 100mg Take 100 mg by mouth daily. [facility] valsartan-h ydrochlorot hiazide (DIOVAN-HCT ) 80-12.5 mg per tablet 08-01 19:21: 22 Yes 1{tbl} Take 1 tablet by mouth daily. [facility] tamsulosin 0.4 mg 24 hr capsule 08-01 19:21: 22 Yes .4mg Take 0.4 mg by mouth daily. [facility] busPIRone 15 mg tablet 08-01 19:21: 22 Yes 15mg Take 15 mg by mouth 2 (two) times daily. [facility] esomeprazol e 40 mg capsule 08-01 19:21: 22 Yes 40mg Take 40 mg by mouth daily with breakfast. [facility] Cholecalcif german, Vitamin D3, 5,000 unit capsule 08-01 19:21: 22 Yes Take by mouth. [facility] losartan 100 mg tablet 08-01 19:21: 22 Yes 100mg Take 100 mg by mouth daily. [facility] valsartan-h ydrochlorot hiazide (DIOVAN-HCT ) 80-12.5 mg per tablet 08-01 19:21: 22 Yes 1{tbl} Take 1 tablet by mouth daily. [facility] tamsulosin 0.4 mg 24 hr capsule 08-01 19:21: 22 Yes .4mg Take 0.4 mg by mouth daily. [facility] busPIRone 15 mg tablet 08-01 19:21: 22 Yes 15mg Take 15 mg by mouth 2 (two) times daily. [facility] esomeprazol e 40 mg capsule 08-01 19:21: 22 Yes 40mg Take 40 mg by mouth daily with breakfast. [facility] Cholecalcif german, Vitamin D3, 5,000 unit capsule 08-01 19:21: 22 Yes Take by mouth. [facility] losartan 100 mg tablet 08-01 19:21: 22 Yes 100mg Take 100 mg by mouth daily. [facility] valsartan-h ydrochlorot hiazide (DIOVAN-HCT ) 80-12.5 mg per tablet 08-01 19:21: 22 Yes 1{tbl} Take 1 tablet by mouth daily. [facility] tamsulosin 0.4 mg 24 hr capsule 08-01 19:21: 22 Yes .4mg Take 0.4 mg by mouth daily. [facility] busPIRone 15 mg tablet 08-01 19:21: 22 Yes 15mg Take 15 mg by mouth 2 (two) times daily. [facility] esomeprazol e 40 mg capsule 08-01 19:21: 22 Yes 40mg Take 40 mg by mouth daily with breakfast. [facility] Cholecalcif german, Vitamin D3, 5,000 unit capsule 08-01 19:21: 22 Yes Take by mouth. [facility] losartan 100 mg tablet 08-01 19:21: 22 Yes 100mg Take 100 mg by mouth daily. [facility] valsartan-h ydrochlorot hiazide (DIOVAN-HCT ) 80-12.5 mg per tablet 08-01 19:21: 22 Yes 1{tbl} Take 1 tablet by mouth daily. [facility] tamsulosin 0.4 mg 24 hr capsule 08-01 19:21: 22 Yes .4mg Take 0.4 mg by mouth daily. [facility] busPIRone 15 mg tablet 08-01 19:21: 22 Yes 15mg Take 15 mg by mouth 2 (two) times daily. [facility] esomeprazol e 40 mg capsule 08-01 19:21: 22 Yes 40mg Take 40 mg by mouth daily with breakfast. [facility] Cholecalcif german, Vitamin D3, 5,000 unit capsule 08-01 19:21: 22 Yes Take by mouth. [facility] losartan 100 mg tablet 08-01 19:21: 22 Yes 100mg Take 100 mg by mouth daily. [facility] valsartan-h ydrochlorot hiazide (DIOVAN-HCT ) 80-12.5 mg per tablet 08-01 19:21: 22 Yes 1{tbl} Take 1 tablet by mouth daily. [facility] valsartan-h ydrochlorot hiazide (DIOVAN-HCT ) 80-12.5 mg per tablet 08-01 19:21: 22 Yes 1{tbl} Take 1 tablet by mouth daily. [facility] valsartan-h ydrochlorot hiazide (DIOVAN-HCT ) 80-12.5 mg per tablet 08-01 19:21: 22 Yes 1{tbl} Take 1 tablet by mouth daily. [facility] valsartan-h ydrochlorot hiazide (DIOVAN-HCT ) 80-12.5 mg per tablet 08-01 19:21: 22 Yes 1{tbl} Take 1 tablet by mouth daily. [facility] tamsulosin 0.4 mg 24 hr capsule 08-01 19:21: 22 Yes .4mg Take 0.4 mg by mouth daily. [facility] busPIRone 15 mg tablet 08-01 19:21: 22 Yes 15mg Take 15 mg by mouth 2 (two) times daily. [facility] esomeprazol e 40 mg capsule 08-01 19:21: 22 Yes 40mg Take 40 mg by mouth daily with breakfast. [facility] Cholecalcif german, Vitamin D3, 5,000 unit capsule 08-01 19:21: 22 Yes Take by mouth. [facility] losartan 100 mg tablet 08-01 19:21: 22 Yes 100mg Take 100 mg by mouth daily. [facility] valsartan-h ydrochlorot hiazide (DIOVAN-HCT ) 80-12.5 mg per tablet 08-01 19:21: 22 Yes 1{tbl} Take 1 tablet by mouth daily. [facility] tamsulosin 0.4 mg 24 hr capsule 08-01 19:21: 22 Yes .4mg Take 0.4 mg by mouth daily. [facility] busPIRone 15 mg tablet 08-01 19:21: 22 Yes 15mg Take 15 mg by mouth 2 (two) times daily. [facility] esomeprazol e 40 mg capsule 08-01 19:21: 22 Yes 40mg Take 40 mg by mouth daily with breakfast. [facility] Cholecalcif german, Vitamin D3, 5,000 unit capsule 08-01 19:21: 22 Yes Take by mouth. [facility] losartan 100 mg tablet 08-01 19:21: 22 Yes 100mg Take 100 mg by mouth daily. [facility] valsartan-h ydrochlorot hiazide (DIOVAN-HCT ) 80-12.5 mg per tablet 08-01 19:21: 22 Yes 1{tbl} Take 1 tablet by mouth daily. [facility] tamsulosin 0.4 mg 24 hr capsule 08-01 19:21: 22 Yes .4mg Take 0.4 mg by mouth daily. [facility] busPIRone 15 mg tablet 08-01 19:21: 22 Yes 15mg Take 15 mg by mouth 2 (two) times daily. [facility] esomeprazol e 40 mg capsule 08-01 19:21: 22 Yes 40mg Take 40 mg by mouth daily with breakfast. [facility] Cholecalcif german, Vitamin D3, 5,000 unit capsule 08-01 19:21: 22 Yes Take by mouth. [facility] losartan 100 mg tablet 08-01 19:21: 22 Yes 100mg Take 100 mg by mouth daily. [facility] valsartan-h ydrochlorot hiazide (DIOVAN-HCT ) 80-12.5 mg per tablet 08-01 19:21: 22 Yes 1{tbl} Take 1 tablet by mouth daily. [facility] tamsulosin 0.4 mg 24 hr capsule 08-01 19:21: 22 Yes .4mg Take 0.4 mg by mouth daily. [facility] busPIRone 15 mg tablet 08-01 19:21: 22 Yes 15mg Take 15 mg by mouth 2 (two) times daily. [facility] esomeprazol e 40 mg capsule 08-01 19:21: 22 Yes 40mg Take 40 mg by mouth daily with breakfast. [facility] Cholecalcif german, Vitamin D3, 5,000 unit capsule 08-01 19:21: 22 Yes Take by mouth. [facility] losartan 100 mg tablet 08-01 19:21: 22 Yes 100mg Take 100 mg by mouth daily. [facility] valsartan-h ydrochlorot hiazide (DIOVAN-HCT ) 80-12.5 mg per tablet 08-01 19:21: 22 Yes 1{tbl} Take 1 tablet by mouth daily. [facility] carvedilol 6.25 mg tablet 08-01 19:21: 21 Yes 6.25mg Take 6.25 mg by mouth 2 (two) times daily with meals. [facility] atorvastati n 20 mg tablet 08-01 19:21: 21 Yes 20mg Take 20 mg by mouth at bedtime. [facility] carvedilol 6.25 mg tablet 08-01 19:21: 21 Yes 6.25mg Take 6.25 mg by mouth 2 (two) times daily with meals. [facility] atorvastati n 20 mg tablet 08-01 19:21: 21 Yes 20mg Take 20 mg by mouth at bedtime. [facility] carvedilol 6.25 mg tablet 08-01 19:21: 21 Yes 6.25mg Take 6.25 mg by mouth 2 (two) times daily with meals. [facility] atorvastati n 20 mg tablet 08-01 19:21: 21 Yes 20mg Take 20 mg by mouth at bedtime. [facility] carvedilol 6.25 mg tablet 08-01 19:21: 21 Yes 6.25mg Take 6.25 mg by mouth 2 (two) times daily with meals. [facility] atorvastati n 20 mg tablet 08-01 19:21: 21 Yes 20mg Take 20 mg by mouth at bedtime. [facility] carvedilol 6.25 mg tablet 08-01 19:21: 21 Yes 6.25mg Take 6.25 mg by mouth 2 (two) times daily with meals. [facility] atorvastati n 20 mg tablet 08-01 19:21: 21 Yes 20mg Take 20 mg by mouth at bedtime. [facility] carvedilol 6.25 mg tablet 08-01 19:21: 21 Yes 6.25mg Take 6.25 mg by mouth 2 (two) times daily with meals. [facility] atorvastati n 20 mg tablet 08-01 19:21: 21 Yes 20mg Take 20 mg by mouth at bedtime. [facility] carvedilol 6.25 mg tablet 08-01 19:21: 21 Yes 6.25mg Take 6.25 mg by mouth 2 (two) times daily with meals. [facility] atorvastati n 20 mg tablet 08-01 19:21: 21 Yes 20mg Take 20 mg by mouth at bedtime. [facility] carvedilol 6.25 mg tablet 08-01 19:21: 21 Yes 6.25mg Take 6.25 mg by mouth 2 (two) times daily with meals. [facility] atorvastati n 20 mg tablet 08-01 19:21: 21 Yes 20mg Take 20 mg by mouth at bedtime. [facility] carvedilol 6.25 mg tablet 08-01 19:21: 21 Yes 6.25mg Take 6.25 mg by mouth 2 (two) times daily with meals. [facility] atorvastati n 20 mg tablet 08-01 19:21: 21 Yes 20mg Take 20 mg by mouth at bedtime. [facility] carvedilol 6.25 mg tablet 08-01 19:21: 21 Yes 6.25mg Take 6.25 mg by mouth 2 (two) times daily with meals. [facility] atorvastati n 20 mg tablet 08-01 19:21: 21 Yes 20mg Take 20 mg by mouth at bedtime. [facility] carvedilol 6.25 mg tablet 08-01 19:21: 21 Yes 6.25mg Take 6.25 mg by mouth 2 (two) times daily with meals. [facility] atorvastati n 20 mg tablet 08-01 19:21: 21 Yes 20mg Take 20 mg by mouth at bedtime. [facility] carvedilol 6.25 mg tablet 08-01 19:21: 21 Yes 6.25mg Take 6.25 mg by mouth 2 (two) times daily with meals. [facility] atorvastati n 20 mg tablet 08-01 19:21: 21 Yes 20mg Take 20 mg by mouth at bedtime. [facility] carvedilol 6.25 mg tablet 08-01 19:21: 21 Yes 6.25mg Take 6.25 mg by mouth 2 (two) times daily with meals. [facility] atorvastati n 20 mg tablet 08-01 19:21: 21 Yes 20mg Take 20 mg by mouth at bedtime. [facility] carvedilol 6.25 mg tablet 08-01 19:21: 21 Yes 6.25mg Take 6.25 mg by mouth 2 (two) times daily with meals. [facility] atorvastati n 20 mg tablet 08-01 19:21: 21 Yes 20mg Take 20 mg by mouth at bedtime. [facility] carvedilol 6.25 mg tablet 08-01 19:21: 21 Yes 6.25mg Take 6.25 mg by mouth 2 (two) times daily with meals. [facility] atorvastati n 20 mg tablet 08-01 19:21: 21 Yes 20mg Take 20 mg by mouth at bedtime. [facility] famotidine (PEPCID) 20 mg tablet 04-06 00:00: 00 Yes 20mg Take 1 tablet by mouth at bedtime. [facility] naproxen (NAPROSYN) 500 mg tablet 04-06 00:00: 00 Yes 500mg Take 1 tablet by mouth as needed for Pain (scale 1-3) (TO MAX OF BID). [facility] cyclobenzap rine (FLEXERIL) 10 mg tablet 04-06 00:00: 00 Yes 10mg Take 1 tablet by mouth as needed for Muscle Spasms (OR PAIN UP TO TID). [facility] famotidine (PEPCID) 20 mg tablet 04-06 00:00: 00 Yes 20mg Take 1 tablet by mouth at bedtime. [facility] cyclobenzap rine (FLEXERIL) 10 mg tablet 04-06 00:00: 00 Yes 10mg Take 1 tablet by mouth as needed for Muscle Spasms (OR PAIN UP TO TID). [facility] cyclobenzap rine (FLEXERIL) 10 mg tablet 04-06 00:00: 00 Yes 10mg Take 1 tablet by mouth as needed for Muscle Spasms (OR PAIN UP TO TID). [facility] cyclobenzap rine (FLEXERIL) 10 mg tablet 04-06 00:00: 00 Yes 10mg Take 1 tablet by mouth as needed for Muscle Spasms (OR PAIN UP TO TID). [facility] cyclobenzap rine (FLEXERIL) 10 mg tablet 04-06 00:00: 00 Yes 10mg Take 1 tablet by mouth as needed for Muscle Spasms (OR PAIN UP TO TID). [facility] cyclobenzap rine (FLEXERIL) 10 mg tablet 04-06 00:00: 00 Yes 10mg Take 1 tablet by mouth as needed for Muscle Spasms (OR PAIN UP TO TID). [facility] cyclobenzap rine (FLEXERIL) 10 mg tablet 04-06 00:00: 00 Yes 10mg Take 1 tablet by mouth as needed for Muscle Spasms (OR PAIN UP TO TID). [facility] cyclobenzap rine (FLEXERIL) 10 mg tablet 04-06 00:00: 00 Yes 10mg Take 1 tablet by mouth as needed for Muscle Spasms (OR PAIN UP TO TID). [facility] naproxen (NAPROSYN) 500 mg tablet 04-06 00:00: 00 Yes 500mg Take 1 tablet by mouth as needed for Pain (scale 1-3) (TO MAX OF BID). [facility] cyclobenzap rine (FLEXERIL) 10 mg tablet 04-06 00:00: 00 Yes 10mg Take 1 tablet by mouth as needed for Muscle Spasms (OR PAIN UP TO TID). [facility] famotidine (PEPCID) 20 mg tablet 04-06 00:00: 00 Yes 20mg Take 1 tablet by mouth at bedtime. [facility] cyclobenzap rine (FLEXERIL) 10 mg tablet 04-06 00:00: 00 Yes 10mg Take 1 tablet by mouth as needed for Muscle Spasms (OR PAIN UP TO TID). [facility] cyclobenzap rine (FLEXERIL) 10 mg tablet 04-06 00:00: 00 Yes 10mg Take 1 tablet by mouth as needed for Muscle Spasms (OR PAIN UP TO TID). [facility] cyclobenzap rine (FLEXERIL) 10 mg tablet 04-06 00:00: 00 Yes 10mg Take 1 tablet by mouth as needed for Muscle Spasms (OR PAIN UP TO TID). [facility] cyclobenzap rine (FLEXERIL) 10 mg tablet 04-06 00:00: 00 Yes 10mg Take 1 tablet by mouth as needed for Muscle Spasms (OR PAIN UP TO TID). [facility] cyclobenzap rine (FLEXERIL) 10 mg tablet 04-06 00:00: 00 Yes 10mg Take 1 tablet by mouth as needed for Muscle Spasms (OR PAIN UP TO TID). [facility] naproxen (NAPROSYN) 500 mg tablet 04-06 00:00: 00 Yes 500mg Take 1 tablet by mouth as needed for Pain (scale 1-3) (TO MAX OF BID). [facility] cyclobenzap rine (FLEXERIL) 10 mg tablet 04-06 00:00: 00 Yes 10mg Take 1 tablet by mouth as needed for Muscle Spasms (OR PAIN UP TO TID). [facility] cyclobenzap rine (FLEXERIL) 10 mg tablet 04-06 00:00: 00 Yes 10mg Take 1 tablet by mouth as needed for Muscle Spasms (OR PAIN UP TO TID). [facility] cyclobenzap rine (FLEXERIL) 10 mg tablet 04-06 00:00: 00 Yes 10mg Take 1 tablet by mouth as needed for Muscle Spasms (OR PAIN UP TO TID). [facility] famotidine (PEPCID) 20 mg tablet 04-06 00:00: 00 Yes 20mg Take 1 tablet by mouth at bedtime. [facility] cyclobenzap rine (FLEXERIL) 10 mg tablet 04-06 00:00: 00 Yes 10mg Take 1 tablet by mouth as needed for Muscle Spasms (OR PAIN UP TO TID). [facility] cyclobenzap rine (FLEXERIL) 10 mg tablet 04-06 00:00: 00 Yes 10mg Take 1 tablet by mouth as needed for Muscle Spasms (OR PAIN UP TO TID). [facility] cyclobenzap rine (FLEXERIL) 10 mg tablet 04-06 00:00: 00 Yes 10mg Take 1 tablet by mouth as needed for Muscle Spasms (OR PAIN UP TO TID). [facility] cyclobenzap rine (FLEXERIL) 10 mg tablet 04-06 00:00: 00 Yes 10mg Take 1 tablet by mouth as needed for Muscle Spasms (OR PAIN UP TO TID). [facility] cyclobenzap rine (FLEXERIL) 10 mg tablet 04-06 00:00: 00 Yes 10mg Take 1 tablet by mouth as needed for Muscle Spasms (OR PAIN UP TO TID). [facility] naproxen (NAPROSYN) 500 mg tablet 04-06 00:00: 00 Yes 500mg Take 1 tablet by mouth as needed for Pain (scale 1-3) (TO MAX OF BID). [facility] cyclobenzap rine (FLEXERIL) 10 mg tablet 04-06 00:00: 00 Yes 10mg Take 1 tablet by mouth as needed for Muscle Spasms (OR PAIN UP TO TID). [facility] famotidine (PEPCID) 20 mg tablet 04-06 00:00: 00 Yes 20mg Take 1 tablet by mouth at bedtime. [facility] naproxen (NAPROSYN) 500 mg tablet 04-06 00:00: 00 Yes 500mg Take 1 tablet by mouth as needed for Pain (scale 1-3) (TO MAX OF BID). [facility] cyclobenzap rine (FLEXERIL) 10 mg tablet 04-06 00:00: 00 Yes 10mg Take 1 tablet by mouth as needed for Muscle Spasms (OR PAIN UP TO TID). [facility] famotidine (PEPCID) 20 mg tablet 04-06 00:00: 00 Yes 20mg Take 1 tablet by mouth at bedtime. [facility] naproxen (NAPROSYN) 500 mg tablet 04-06 00:00: 00 Yes 500mg Take 1 tablet by mouth as needed for Pain (scale 1-3) (TO MAX OF BID). [facility] cyclobenzap rine (FLEXERIL) 10 mg tablet 04-06 00:00: 00 Yes 10mg Take 1 tablet by mouth as needed for Muscle Spasms (OR PAIN UP TO TID). [facility] famotidine (PEPCID) 20 mg tablet 04-06 00:00: 00 Yes 20mg Take 1 tablet by mouth at bedtime. [facility] naproxen (NAPROSYN) 500 mg tablet 04-06 00:00: 00 Yes 500mg Take 1 tablet by mouth as needed for Pain (scale 1-3) (TO MAX OF BID). [facility] cyclobenzap rine (FLEXERIL) 10 mg tablet 04-06 00:00: 00 Yes 10mg Take 1 tablet by mouth as needed for Muscle Spasms (OR PAIN UP TO TID). [facility] famotidine (PEPCID) 20 mg tablet 04-06 00:00: 00 Yes 20mg Take 1 tablet by mouth at bedtime. [facility] naproxen (NAPROSYN) 500 mg tablet 04-06 00:00: 00 Yes 500mg Take 1 tablet by mouth as needed for Pain (scale 1-3) (TO MAX OF BID). [facility] cyclobenzap rine (FLEXERIL) 10 mg tablet 04-06 00:00: 00 Yes 10mg Take 1 tablet by mouth as needed for Muscle Spasms (OR PAIN UP TO TID). [facility] famotidine (PEPCID) 20 mg tablet 04-06 00:00: 00 Yes 20mg Take 1 tablet by mouth at bedtime. [facility] naproxen (NAPROSYN) 500 mg tablet 04-06 00:00: 00 Yes 500mg Take 1 tablet by mouth as needed for Pain (scale 1-3) (TO MAX OF BID). [facility] cyclobenzap rine (FLEXERIL) 10 mg tablet 04-06 00:00: 00 Yes 10mg Take 1 tablet by mouth as needed for Muscle Spasms (OR PAIN UP TO TID). [facility] famotidine (PEPCID) 20 mg tablet 04-06 00:00: 00 Yes 20mg Take 1 tablet by mouth at bedtime. [facility] naproxen (NAPROSYN) 500 mg tablet 04-06 00:00: 00 Yes 500mg Take 1 tablet by mouth as needed for Pain (scale 1-3) (TO MAX OF BID). [facility] cyclobenzap rine (FLEXERIL) 10 mg tablet 04-06 00:00: 00 Yes 10mg Take 1 tablet by mouth as needed for Muscle Spasms (OR PAIN UP TO TID). [facility] famotidine (PEPCID) 20 mg tablet 04-06 00:00: 00 Yes 20mg Take 1 tablet by mouth at bedtime. [facility] naproxen (NAPROSYN) 500 mg tablet 04-06 00:00: 00 Yes 500mg Take 1 tablet by mouth as needed for Pain (scale 1-3) (TO MAX OF BID). [facility] cyclobenzap rine (FLEXERIL) 10 mg tablet 04-06 00:00: 00 Yes 10mg Take 1 tablet by mouth as needed for Muscle Spasms (OR PAIN UP TO TID). [facility] famotidine (PEPCID) 20 mg tablet 04-06 00:00: 00 Yes 20mg Take 1 tablet by mouth at bedtime. [facility] naproxen (NAPROSYN) 500 mg tablet 04-06 00:00: 00 Yes 500mg Take 1 tablet by mouth as needed for Pain (scale 1-3) (TO MAX OF BID). [facility] cyclobenzap rine (FLEXERIL) 10 mg tablet 04-06 00:00: 00 Yes 10mg Take 1 tablet by mouth as needed for Muscle Spasms (OR PAIN UP TO TID). [facility] famotidine (PEPCID) 20 mg tablet 04-06 00:00: 00 Yes 20mg Take 1 tablet by mouth at bedtime. [facility] naproxen (NAPROSYN) 500 mg tablet 04-06 00:00: 00 Yes 500mg Take 1 tablet by mouth as needed for Pain (scale 1-3) (TO MAX OF BID). [facility] naproxen (NAPROSYN) 500 mg tablet 04-06 00:00: 00 Yes 500mg Take 1 tablet by mouth as needed for Pain (scale 1-3) (TO MAX OF BID). [facility] cyclobenzap rine (FLEXERIL) 10 mg tablet 04-06 00:00: 00 Yes 10mg Take 1 tablet by mouth as needed for Muscle Spasms (OR PAIN UP TO TID). [facility] famotidine (PEPCID) 20 mg tablet 04-06 00:00: 00 Yes 20mg Take 1 tablet by mouth at bedtime. [facility] cyclobenzap rine (FLEXERIL) 10 mg tablet 04-06 00:00: 00 Yes 10mg Take 1 tablet by mouth as needed for Muscle Spasms (OR PAIN UP TO TID). [facility] naproxen (NAPROSYN) 500 mg tablet 04-06 00:00: 00 Yes 500mg Take 1 tablet by mouth as needed for Pain (scale 1-3) (TO MAX OF BID). [facility] cyclobenzap rine (FLEXERIL) 10 mg tablet 04-06 00:00: 00 Yes 10mg Take 1 tablet by mouth as needed for Muscle Spasms (OR PAIN UP TO TID). [facility] famotidine (PEPCID) 20 mg tablet 04-06 00:00: 00 Yes 20mg Take 1 tablet by mouth at bedtime. [facility] famotidine (PEPCID) 20 mg tablet 04-06 00:00: 00 Yes 20mg Take 1 tablet by mouth at bedtime. [facility] naproxen (NAPROSYN) 500 mg tablet 04-06 00:00: 00 Yes 500mg Take 1 tablet by mouth as needed for Pain (scale 1-3) (TO MAX OF BID). [facility] cyclobenzap rine (FLEXERIL) 10 mg tablet 04-06 00:00: 00 Yes 10mg Take 1 tablet by mouth as needed for Muscle Spasms (OR PAIN UP TO TID). [facility] famotidine (PEPCID) 20 mg tablet 04-06 00:00: 00 Yes 20mg Take 1 tablet by mouth at bedtime. [facility] naproxen (NAPROSYN) 500 mg tablet 04-06 00:00: 00 Yes 500mg Take 1 tablet by mouth as needed for Pain (scale 1-3) (TO MAX OF BID). [facility] cyclobenzap rine (FLEXERIL) 10 mg tablet 04-06 00:00: 00 Yes 10mg Take 1 tablet by mouth as needed for Muscle Spasms (OR PAIN UP TO TID). [facility] famotidine (PEPCID) 20 mg tablet 04-06 00:00: 00 Yes 20mg Take 1 tablet by mouth at bedtime. [facility] naproxen (NAPROSYN) 500 mg tablet 04-06 00:00: 00 Yes 500mg Take 1 tablet by mouth as needed for Pain (scale 1-3) (TO MAX OF BID). [facility] cyclobenzap rine (FLEXERIL) 10 mg tablet 04-06 00:00: 00 Yes 10mg Take 1 tablet by mouth as needed for Muscle Spasms (OR PAIN UP TO TID). [facility] famotidine (PEPCID) 20 mg tablet 04-06 00:00: 00 Yes 20mg Take 1 tablet by mouth at bedtime. [facility] naproxen (NAPROSYN) 500 mg tablet 04-06 00:00: 00 Yes 500mg Take 1 tablet by mouth as needed for Pain (scale 1-3) (TO MAX OF BID). [facility] cyclobenzap rine (FLEXERIL) 10 mg tablet 04-06 00:00: 00 Yes 10mg Take 1 tablet by mouth as needed for Muscle Spasms (OR PAIN UP TO TID). [facility] famotidine (PEPCID) 20 mg tablet 04-06 00:00: 00 Yes 20mg Take 1 tablet by mouth at bedtime. [facility] naproxen (NAPROSYN) 500 mg tablet 04-06 00:00: 00 Yes 500mg Take 1 tablet by mouth as needed for Pain (scale 1-3) (TO MAX OF BID). [facility] cyclobenzap rine (FLEXERIL) 10 mg tablet 04-06 00:00: 00 Yes 10mg Take 1 tablet by mouth as needed for Muscle Spasms (OR PAIN UP TO TID). [facility] famotidine (PEPCID) 20 mg tablet 04-06 00:00: 00 Yes 20mg Take 1 tablet by mouth at bedtime. [facility] naproxen (NAPROSYN) 500 mg tablet 04-06 00:00: 00 Yes 500mg Take 1 tablet by mouth as needed for Pain (scale 1-3) (TO MAX OF BID). [facility] cyclobenzap rine (FLEXERIL) 10 mg tablet 04-06 00:00: 00 Yes 10mg Take 1 tablet by mouth as needed for Muscle Spasms (OR PAIN UP TO TID). [facility] famotidine (PEPCID) 20 mg tablet 04-06 00:00: 00 Yes 20mg Take 1 tablet by mouth at bedtime. [facility] naproxen (NAPROSYN) 500 mg tablet 04-06 00:00: 00 Yes 500mg Take 1 tablet by mouth as needed for Pain (scale 1-3) (TO MAX OF BID). [facility] cyclobenzap rine (FLEXERIL) 10 mg tablet 04-06 00:00: 00 Yes 10mg Take 1 tablet by mouth as needed for Muscle Spasms (OR PAIN UP TO TID). [facility] famotidine (PEPCID) 20 mg tablet 04-06 00:00: 00 Yes 20mg Take 1 tablet by mouth at bedtime. [facility] naproxen (NAPROSYN) 500 mg tablet 04-06 00:00: 00 Yes 500mg Take 1 tablet by mouth as needed for Pain (scale 1-3) (TO MAX OF BID). [facility] cyclobenzap rine (FLEXERIL) 10 mg tablet 04-06 00:00: 00 Yes 10mg Take 1 tablet by mouth as needed for Muscle Spasms (OR PAIN UP TO TID). [facility] famotidine (PEPCID) 20 mg tablet 04-06 00:00: 00 Yes 20mg Take 1 tablet by mouth at bedtime. [facility] naproxen (NAPROSYN) 500 mg tablet 04-06 00:00: 00 Yes 500mg Take 1 tablet by mouth as needed for Pain (scale 1-3) (TO MAX OF BID). [facility] cyclobenzap rine (FLEXERIL) 10 mg tablet 04-06 00:00: 00 Yes 10mg Take 1 tablet by mouth as needed for Muscle Spasms (OR PAIN UP TO TID). [facility] famotidine (PEPCID) 20 mg tablet 04-06 00:00: 00 Yes 20mg Take 1 tablet by mouth at bedtime. [facility] naproxen (NAPROSYN) 500 mg tablet 04-06 00:00: 00 Yes 500mg Take 1 tablet by mouth as needed for Pain (scale 1-3) (TO MAX OF BID). [facility] cyclobenzap rine (FLEXERIL) 10 mg tablet 04-06 00:00: 00 Yes 10mg Take 1 tablet by mouth as needed for Muscle Spasms (OR PAIN UP TO TID). [facility] famotidine (PEPCID) 20 mg tablet 04-06 00:00: 00 Yes 20mg Take 1 tablet by mouth at bedtime. [facility] naproxen (NAPROSYN) 500 mg tablet 04-06 00:00: 00 Yes 500mg Take 1 tablet by mouth as needed for Pain (scale 1-3) (TO MAX OF BID). [facility] cyclobenzap rine (FLEXERIL) 10 mg tablet 04-06 00:00: 00 Yes 10mg Take 1 tablet by mouth as needed for Muscle Spasms (OR PAIN UP TO TID). [facility] famotidine (PEPCID) 20 mg tablet 04-06 00:00: 00 Yes 20mg Take 1 tablet by mouth at bedtime. [facility] naproxen (NAPROSYN) 500 mg tablet 04-06 00:00: 00 Yes 500mg Take 1 tablet by mouth as needed for Pain (scale 1-3) (TO MAX OF BID). [facility] cyclobenzap rine (FLEXERIL) 10 mg tablet 04-06 00:00: 00 Yes 10mg Take 1 tablet by mouth as needed for Muscle Spasms (OR PAIN UP TO TID). [facility] famotidine (PEPCID) 20 mg tablet 04-06 00:00: 00 Yes 20mg Take 1 tablet by mouth at bedtime. [facility] naproxen (NAPROSYN) 500 mg tablet 04-06 00:00: 00 Yes 500mg Take 1 tablet by mouth as needed for Pain (scale 1-3) (TO MAX OF BID). [facility] cyclobenzap rine (FLEXERIL) 10 mg tablet 04-06 00:00: 00 Yes 10mg Take 1 tablet by mouth as needed for Muscle Spasms (OR PAIN UP TO TID). [facility] famotidine (PEPCID) 20 mg tablet 04-06 00:00: 00 Yes 20mg Take 1 tablet by mouth at bedtime. [facility] naproxen (NAPROSYN) 500 mg tablet 04-06 00:00: 00 Yes 500mg Take 1 tablet by mouth as needed for Pain (scale 1-3) (TO MAX OF BID). [facility] cyclobenzap rine (FLEXERIL) 10 mg tablet 04-06 00:00: 00 Yes 10mg Take 1 tablet by mouth as needed for Muscle Spasms (OR PAIN UP TO TID). [facility] naproxen (NAPROSYN) 500 mg tablet 04-06 00:00: 00 Yes 500mg Take 1 tablet by mouth as needed for Pain (scale 1-3) (TO MAX OF BID). [facility] cyclobenzap rine (FLEXERIL) 10 mg tablet 04-06 00:00: 00 Yes 10mg Take 1 tablet by mouth as needed for Muscle Spasms (OR PAIN UP TO TID). [facility] famotidine (PEPCID) 20 mg tablet 04-06 00:00: 00 Yes 20mg Take 1 tablet by mouth at bedtime. [facility] famotidine (PEPCID) 20 mg tablet 04-06 00:00: 00 Yes 20mg Take 1 tablet by mouth at bedtime. [facility] naproxen (NAPROSYN) 500 mg tablet 04-06 00:00: 00 Yes 500mg Take 1 tablet by mouth as needed for Pain (scale 1-3) (TO MAX OF BID). [facility] cyclobenzap rine (FLEXERIL) 10 mg tablet 04-06 00:00: 00 Yes 10mg Take 1 tablet by mouth as needed for Muscle Spasms (OR PAIN UP TO TID). [facility] famotidine (PEPCID) 20 mg tablet 04-06 00:00: 00 Yes 20mg Take 1 tablet by mouth at bedtime. [facility] naproxen (NAPROSYN) 500 mg tablet 04-06 00:00: 00 Yes 500mg Take 1 tablet by mouth as needed for Pain (scale 1-3) (TO MAX OF BID). [facility] cyclobenzap rine (FLEXERIL) 10 mg tablet 04-06 00:00: 00 Yes 10mg Take 1 tablet by mouth as needed for Muscle Spasms (OR PAIN UP TO TID). [facility] famotidine (PEPCID) 20 mg tablet 04-06 00:00: 00 Yes 20mg Take 1 tablet by mouth at bedtime. [facility] naproxen (NAPROSYN) 500 mg tablet 04-06 00:00: 00 Yes 500mg Take 1 tablet by mouth as needed for Pain (scale 1-3) (TO MAX OF BID). [facility] cyclobenzap rine (FLEXERIL) 10 mg tablet 04-06 00:00: 00 Yes 10mg Take 1 tablet by mouth as needed for Muscle Spasms (OR PAIN UP TO TID). [facility] famotidine (PEPCID) 20 mg tablet 04-06 00:00: 00 Yes 20mg Take 1 tablet by mouth at bedtime. [facility] naproxen (NAPROSYN) 500 mg tablet 04-06 00:00: 00 Yes 500mg Take 1 tablet by mouth as needed for Pain (scale 1-3) (TO MAX OF BID). [facility] cyclobenzap rine (FLEXERIL) 10 mg tablet 04-06 00:00: 00 Yes 10mg Take 1 tablet by mouth as needed for Muscle Spasms (OR PAIN UP TO TID). [facility] famotidine (PEPCID) 20 mg tablet 04-06 00:00: 00 Yes 20mg Take 1 tablet by mouth at bedtime. [facility] naproxen (NAPROSYN) 500 mg tablet 04-06 00:00: 00 Yes 500mg Take 1 tablet by mouth as needed for Pain (scale 1-3) (TO MAX OF BID). [facility] cyclobenzap rine (FLEXERIL) 10 mg tablet 04-06 00:00: 00 Yes 10mg Take 1 tablet by mouth as needed for Muscle Spasms (OR PAIN UP TO TID). [facility] famotidine (PEPCID) 20 mg tablet 04-06 00:00: 00 Yes 20mg Take 1 tablet by mouth at bedtime. [facility] naproxen (NAPROSYN) 500 mg tablet 04-06 00:00: 00 Yes 500mg Take 1 tablet by mouth as needed for Pain (scale 1-3) (TO MAX OF BID). [facility] cyclobenzap rine (FLEXERIL) 10 mg tablet 04-06 00:00: 00 Yes 10mg Take 1 tablet by mouth as needed for Muscle Spasms (OR PAIN UP TO TID). [facility] famotidine (PEPCID) 20 mg tablet 04-06 00:00: 00 Yes 20mg Take 1 tablet by mouth at bedtime. [facility] naproxen (NAPROSYN) 500 mg tablet 04-06 00:00: 00 Yes 500mg Take 1 tablet by mouth as needed for Pain (scale 1-3) (TO MAX OF BID). [facility] naproxen (NAPROSYN) 500 mg tablet 04-06 00:00: 00 Yes 500mg Take 1 tablet by mouth as needed for Pain (scale 1-3) (TO MAX OF BID). [facility] cyclobenzap rine (FLEXERIL) 10 mg tablet 04-06 00:00: 00 Yes 10mg Take 1 tablet by mouth as needed for Muscle Spasms (OR PAIN UP TO TID). [facility] famotidine (PEPCID) 20 mg tablet 04-06 00:00: 00 Yes 20mg Take 1 tablet by mouth at bedtime. [facility] cyclobenzap rine (FLEXERIL) 10 mg tablet 04-06 00:00: 00 Yes 10mg Take 1 tablet by mouth as needed for Muscle Spasms (OR PAIN UP TO TID). [facility] famotidine (PEPCID) 20 mg tablet 04-06 00:00: 00 Yes 20mg Take 1 tablet by mouth at bedtime. [facility] naproxen (NAPROSYN) 500 mg tablet 04-06 00:00: 00 Yes 500mg Take 1 tablet by mouth as needed for Pain (scale 1-3) (TO MAX OF BID). [facility] cyclobenzap rine (FLEXERIL) 10 mg tablet 04-06 00:00: 00 Yes 10mg Take 1 tablet by mouth as needed for Muscle Spasms (OR PAIN UP TO TID). [facility] famotidine (PEPCID) 20 mg tablet 04-06 00:00: 00 Yes 20mg Take 1 tablet by mouth at bedtime. [facility] naproxen (NAPROSYN) 500 mg tablet 04-06 00:00: 00 Yes 500mg Take 1 tablet by mouth as needed for Pain (scale 1-3) (TO MAX OF BID). [facility] cyclobenzap rine (FLEXERIL) 10 mg tablet 04-06 00:00: 00 Yes 10mg Take 1 tablet by mouth as needed for Muscle Spasms (OR PAIN UP TO TID). [facility] famotidine (PEPCID) 20 mg tablet 04-06 00:00: 00 Yes 20mg Take 1 tablet by mouth at bedtime. [facility] naproxen (NAPROSYN) 500 mg tablet 04-06 00:00: 00 Yes 500mg Take 1 tablet by mouth as needed for Pain (scale 1-3) (TO MAX OF BID). [facility] cyclobenzap rine (FLEXERIL) 10 mg tablet 04-06 00:00: 00 Yes 10mg Take 1 tablet by mouth as needed for Muscle Spasms (OR PAIN UP TO TID). [facility] famotidine (PEPCID) 20 mg tablet 04-06 00:00: 00 Yes 20mg Take 1 tablet by mouth at bedtime. [facility] naproxen (NAPROSYN) 500 mg tablet 04-06 00:00: 00 Yes 500mg Take 1 tablet by mouth as needed for Pain (scale 1-3) (TO MAX OF BID). [facility] cyclobenzap rine (FLEXERIL) 10 mg tablet 04-06 00:00: 00 Yes 10mg Take 1 tablet by mouth as needed for Muscle Spasms (OR PAIN UP TO TID). [facility] famotidine (PEPCID) 20 mg tablet 04-06 00:00: 00 Yes 20mg Take 1 tablet by mouth at bedtime. [facility] naproxen (NAPROSYN) 500 mg tablet 04-06 00:00: 00 Yes 500mg Take 1 tablet by mouth as needed for Pain (scale 1-3) (TO MAX OF BID). [facility] cyclobenzap rine (FLEXERIL) 10 mg tablet 04-06 00:00: 00 Yes 10mg Take 1 tablet by mouth as needed for Muscle Spasms (OR PAIN UP TO TID). [facility] famotidine (PEPCID) 20 mg tablet 04-06 00:00: 00 Yes 20mg Take 1 tablet by mouth at bedtime. [facility] naproxen (NAPROSYN) 500 mg tablet 04-06 00:00: 00 Yes 500mg Take 1 tablet by mouth as needed for Pain (scale 1-3) (TO MAX OF BID). [facility] cyclobenzap rine (FLEXERIL) 10 mg tablet 04-06 00:00: 00 Yes 10mg Take 1 tablet by mouth as needed for Muscle Spasms (OR PAIN UP TO TID). [facility] famotidine (PEPCID) 20 mg tablet 04-06 00:00: 00 Yes 20mg Take 1 tablet by mouth at bedtime. [facility] naproxen (NAPROSYN) 500 mg tablet 04-06 00:00: 00 Yes 500mg Take 1 tablet by mouth as needed for Pain (scale 1-3) (TO MAX OF BID). [facility] cyclobenzap rine (FLEXERIL) 10 mg tablet 04-06 00:00: 00 Yes 10mg Take 1 tablet by mouth as needed for Muscle Spasms (OR PAIN UP TO TID). [facility] naproxen (NAPROSYN) 500 mg tablet 04-06 00:00: 00 Yes 500mg Take 1 tablet by mouth as needed for Pain (scale 1-3) (TO MAX OF BID). [facility] cyclobenzap rine (FLEXERIL) 10 mg tablet 04-06 00:00: 00 Yes 10mg Take 1 tablet by mouth as needed for Muscle Spasms (OR PAIN UP TO TID). [facility] famotidine (PEPCID) 20 mg tablet 04-06 00:00: 00 Yes 20mg Take 1 tablet by mouth at bedtime. [facility] naproxen (NAPROSYN) 500 mg tablet 04-06 00:00: 00 09-12 00:00 :00 No 500mg Take 1 tablet by mouth as needed for Pain (scale 1-3) (TO MAX OF BID). [facility] famotidine (PEPCID) 20 mg tablet 04-06 00:00: 00 09-12 00:00 :00 No 20mg Take 1 tablet by mouth at bedtime. [facility] naproxen (NAPROSYN) 500 mg tablet 04-06 00:00: 00 09-12 00:00 :00 No 500mg Take 1 tablet by mouth as needed for Pain (scale 1-3) (TO MAX OF BID). [facility] famotidine (PEPCID) 20 mg tablet 04-06 00:00: 00 09-12 00:00 :00 No 20mg Take 1 tablet by mouth at bedtime. [facility] Vital Signs Vital Name Observation Time Observation Value Comments Jennifer phillips Systolic blood pressure 2023-10-04 19:16:00 117 mm[Hg] [place] [facility] Diastolic blood pressure 2023-10-04 19:16:00 79 mm[Hg] [facility] Heart rate 2023-10-04 19:16:00 100 /min [facility] Body height 2023-10-04 19:16:00 185.4 cm [facility] Body weight 2023-10-04 19:16:00 91.173 kg [facility] BMI 2023-10-04 19:16:00 26.52 kg/m2 [facility] Oxygen saturation in Arterial blood by Pulse oximetry 2023-10-04 19:16:00 95 /min [facility] Systolic blood pressure 2023-09-17 20:40:00 130 mm[Hg] [facility] Diastolic blood pressure 2023-09-17 20:40:00 99 mm[Hg] [facility] Heart rate 2023-09-17 20:40:00 87 /min [facility] Respiratory rate 2023-09-17 20:40:00 14 /min [facility] Oxygen saturation in Arterial blood by Pulse oximetry 2023-09-17 20:40:00 93 /min [facility] Body temperature 2023-09-17 20:00:00 36.17 Carrie [facility] Body height 2023-09-17 18:25:00 180.3 cm [facility] Body weight 2023-09-17 18:25:00 91.627 kg [facility] BMI 2023-09-17 18:25:00 28.17 kg/m2 [facility] Systolic blood pressure 2023-09-17 20:40:00 130 mm[Hg] [facility] Diastolic blood pressure 2023-09-17 20:40:00 99 mm[Hg] [facility] Heart rate 2023-09-17 20:40:00 87 /min [facility] Respiratory rate 2023-09-17 20:40:00 14 /min [facility] Oxygen saturation in Arterial blood by Pulse oximetry 2023-09-17 20:40:00 93 /min [facility] Body temperature 2023-09-17 20:00:00 36.17 Carrie [facility] Body height 2023-09-17 18:25:00 180.3 cm [facility] Body weight 2023-09-17 18:25:00 91.627 kg [facility] BMI 2023-09-17 18:25:00 28.17 kg/m2 [facility] Systolic blood pressure 2023-09-06 20:47:00 140 mm[Hg] [facility] Diastolic blood pressure 2023-09-06 20:47:00 98 mm[Hg] [facility] Heart rate 2023-09-06 20:38:00 99 /min [facility] Body temperature 2023-09-06 20:38:00 36.44 Carrie [facility] Respiratory rate 2023-09-06 20:38:00 18 /min [facility] Body weight 2023-09-06 20:38:00 91.627 kg [facility] BMI 2023-09-06 20:38:00 35.78 kg/m2 [facility] Oxygen saturation in Arterial blood by Pulse oximetry 2023-09-06 20:38:00 99 /min [facility] Systolic blood pressure 2023-07-18 19:31:00 133 mm[Hg] [facility] Diastolic blood pressure 2023-07-18 19:31:00 94 mm[Hg] [facility] Heart rate 2023-07-18 19:31:00 76 /min [facility] Body temperature 2023-07-18 19:30:00 36.56 Carrie [facility] Respiratory rate 2023-07-18 19:30:00 18 /min [facility] Body height 2023-07-18 19:30:00 160 cm [facility] Body weight 2023-07-18 19:30:00 91.717 kg [facility] BMI 2023-07-18 19:30:00 35.82 kg/m2 [facility] Oxygen saturation in Arterial blood by Pulse oximetry 2023-07-18 19:30:00 97 /min [facility] [facility] Systolic blood pressure 2023-05-30 19:27:00 134 mm[Hg] [facility] Diastolic blood pressure 2023-05-30 19:27:00 97 mm[Hg] [facility] Heart rate 2023-05-30 19:26:00 79 /min Unive [facility] Body temperature 2023-05-30 19:26:00 36.61 Carrie [facility] Respiratory rate 2023-05-30 19:26:00 18 /min [facility] Body height 2023-05-30 19:26:00 185.4 cm Univ [facility] Body weight 2023-05-30 19:26:00 97.07 kg Univ [facility] BMI 2023-05-30 19:26:00 28.23 kg/m2 Univ [facility] Oxygen saturation in Arterial blood by Pulse oximetry 2023-05-30 19:26:00 96 /min [facility] Systolic blood pressure 2023-02-14 18:50:00 142 mm[Hg] [facility] Diastolic blood pressure 2023-02-14 18:50:00 106 mm[Hg] [facility] Heart rate 2023-02-14 18:50:00 76 /min Unive [facility] Body temperature 2023-02-14 18:50:00 36.89 Carrie [facility] Respiratory rate 2023-02-14 18:50:00 18 /min [facility] Body height 2023-02-14 18:50:00 185.4 cm Univ [facility] Body weight 2023-02-14 18:50:00 97.07 kg [facility] BMI 2023-02-14 18:50:00 28.23 kg/m2 Univ [facility] Oxygen saturation in Arterial blood by Pulse oximetry 2023-02-14 18:50:00 97 /min [facility] Systolic blood pressure 2020-07-15 15:00:00 119 mm[Hg] [facility] Diastolic blood pressure 2020-07-15 15:00:00 91 mm[Hg] [facility] Heart rate 2020-07-15 15:00:00 80 /min Unive [facility] Body temperature 2020-07-15 14:56:00 36.83 Carrie [facility] Respiratory rate 2020-07-15 14:56:00 20 /min [facility] Body height 2020-07-15 14:56:00 172.7 cm [facility] Body weight 2020-07-15 14:56:00 104.327 kg Univ [facility] BMI 2020-07-15 14:56:00 34.97 kg/m2 [facility] Oxygen saturation in Arterial blood by Pulse oximetry 2020-07-15 14:56:00 98 /min [facility] Systolic blood pressure 2020-04-02 15:45:00 140 mm[Hg] [facility] Diastolic blood pressure 2020-04-02 15:45:00 94 mm[Hg] [facility] Heart rate 2020-04-02 15:45:00 92 /min Unive [facility] Oxygen saturation in Arterial blood by Pulse oximetry 2020-04-02 15:45:00 94 /min [facility] Respiratory rate 2020-04-02 15:15:00 22 /min [facility] Body temperature 2020-04-02 14:15:00 36.67 Carrie [facility] Body height 2020-04-01 15:45:00 185.4 cm [facility] Body weight 2020-04-01 15:45:00 104.327 kg [facility] BMI 2020-04-01 15:45:00 30.34 kg/m2 [facility] Systolic blood pressure 2020-03-15 14:43:00 123 mm[Hg] [facility] Diastolic blood pressure 2020-03-15 14:43:00 90 mm[Hg] [facility] Heart rate 2020-03-15 14:43:00 65 /[facility] 2020-03-15 14:43:00 36.11 Carrie [facility] Respiratory rate 2020-03-15 14:43:00 18 /min [facility] Body weight 2020-03-15 14:43:00 106.867 kg [facility] BMI 2020-03-15 14:43:00 35.83 kg/m2 [facility] Systolic blood pressure 2020-03-01 16:14:00 163 mm[Hg] [facility] Diastolic blood pressure 2020-03-01 16:14:00 107 mm[Hg] [facility] Heart rate 2020-03-01 16:12:00 63 /min Unive [facility] Body temperature 2020-03-01 16:12:00 35.67 Carrie [facility] Body weight 2020-03-01 16:12:00 107.23 kg Univ [facility] BMI 2020-03-01 16:12:00 35.94 kg/m2 [facility] Systolic blood pressure 2020-02-09 14:08:00 150 mm[Hg] [facility] Diastolic blood pressure 2020-02-09 14:08:00 95 mm[Hg] [facility] Heart rate 2020-02-09 14:08:00 67 /min Unive [facility] Body temperature 2020-02-09 14:06:00 36.83 Carrie [facility] Respiratory rate 2020-02-09 14:06:00 20 /min [facility] Body height 2020-02-09 14:06:00 172.7 cm [facility] Body weight 2020-02-09 14:06:00 105.96 kg [facility] BMI 2020-02-09 14:06:00 35.52 kg/m2 [facility] Oxygen saturation in Arterial blood by Pulse oximetry 2020-02-09 14:06:00 98 /min [facility] Systolic blood pressure 2020-01-05 14:56:00 129 mm[Hg] [facility] Diastolic blood pressure 2020-01-05 14:56:00 82 mm[Hg] [facility] Heart rate 2020-01-05 14:56:00 72 /min Unive [facility] Body temperature 2020-01-05 14:56:00 36.28 Carrie [facility] Respiratory rate 2020-01-05 14:56:00 20 /min [facility] Body height 2020-01-05 14:56:00 172.7 cm [facility] Body weight 2020-01-05 14:56:00 104.599 kg [facility] BMI 2020-01-05 14:56:00 35.06 kg/m2 [facility] Oxygen saturation in Arterial blood by Pulse oximetry 2020-01-05 14:56:00 98 /min [facility] Procedures Procedure Date / Time Performed Performing Clinician Source PET TUMOR IMAGING SKULL TO THIGH 2023-10-08 15:37:00 Kat Garcia [facility] PET TUMOR IMAGING SKULL TO THIGH 2023-10-08 15:37:00 Kat Garcia [facility] POCT GLUCOSE (AUTOMATED) 2023-10-08 14:30:00 Jaswant Garcia [facility] CT THORAX W CONTRAST 2023-09-25 19:48:00 Kat Garcia [facility] CT ABDOMEN PELVIS W CONTRAST 2023-09-25 19:46:00 Kat Garcia [facility] SURGICAL PATHOLOGY EXAM 2023-09-17 19:15:00 Sada Garcia [facility] SURGICAL PATHOLOGY EXAM 2023-09-17 19:15:00 Sada Garcia [facility] INTUBATION 2023-09-17 18:57:[address] [facility] CONSENT/REFUSAL FOR DIAGNOSIS AND TREATMENT 2023-09-17 18:30:36 Doctor Unassigned, [place] [facility] CONSENT/REFUSAL FOR DIAGNOSIS AND TREATMENT 2023-09-17 18:30:36 Doctor Unassigned, [place] [facility] EXAM UNDER ANESTHESIA RECTUM 2023-09-17 18:27:00 Kat Garcia [facility] BIOPSY 2023-09-17 18:27:[address] [facility] FISTULOTOMY 2023-09-17 18:27:[address] [facility] ASSIGNMENT OF BENEFITS 2023-09-17 18:08:27 Docto r Unassigned, [place] [facility] INSURANCE CORRESPONDENCE 2023-09-12 06:01:00 Doc tor Unassigned, [place] [facility] MEDICAL RELEASE/CLEARANCE FORMS 2023-09-06 06:01:00 Doctor Unassigned, [place] [facility] REFERRAL- REQUEST/RESPONSE 2023-09-05 06:01:00 Doctor Unassigned, [place] [facility] DISCLOSURE AND CONSENT, MEDICAL AND SURGICAL PROCEDURES 2023-07-20 06:01:00 Doctor Unassigned, [place] [facility] POCT URINALYSIS AUTO 2023-07-18 19:15:00 Francisca Wise [facility] EXTERNAL PROVIDER RECORDS 2023-06-15 06:01:00 Do ctor Unassigned, [place] [facility] PATIENT QUESTIONNAIRE 2023-06-08 06:01:00 Doctor Unassigned, [place] [facility] POCT URINALYSIS AUTO 2023-05-30 19:30:00 Cooper Ferguson [facility] EXTERNAL PROVIDER RECORDS 2023-05-21 05:01:00 Do ctor Unassigned, [place] [facility] CONSENT/REFUSAL FOR DIAGNOSIS AND TREATMENT 2023-02-14 18:41:06 Doctor Unassigned, [place] [facility] SCANNED LAB RESULTS 2020-07-15 06:01:00 Doctor Carole españa, [place] [facility] ASSIGNMENT OF BENEFITS 2020-04-01 17:28:39 Docto r Unassigned, [place] [facility] POCT URINALYSIS AUTO 2020-03-15 14:46:00 Francisca Wise [facility] DISCLOSURE AND CONSENT, MEDICAL AND SURGICAL PROCEDURES 2020-03-15 05:01:00 Doctor Unassigned, [place] [facility] DISCLOSURE AND CONSENT, MEDICAL AND SURGICAL PROCEDURES 2020-03-01 05:01:00 Doctor Unassigned, [place] [facility] POCT URINALYSIS AUTO 2020-02-09 14:10:00 Francisca Wise [facility] SCANNED LAB RESULTS 2020-02-09 05:01:00 Doctor Carole españa, [place] [facility] POCT URINALYSIS AUTO 2020-01-05 15:00:00 Francisca Wise [facility] REFERRAL- REQUEST/RESPONSE 2019-12-31 05:01:00 Doctor Unassigned, [place] [facility] Encounters Start Date/Time End Date/Time Encounter Type Admission Type Attending [facility] Care Department Encounter ID Source 2021-05-27 11:39:59 Outpatient SANDOR WISE [facility] [id number] [facility] 2023-10-18 00:00:00 2023-10-18 00:00:00 Telephone Kat Garcia [facility] 1.2.840.114 350.1.13.10 4.2.7.2.[id number] [facility] 2023-10-08 09:23:01 2023-10-08 23:59:00 Hospital Encounter Jose [facility] 1..840.114 350.1.13.10 4.2.7.2.[id number] [facility] 2023-10-08 09:22:51 2023-10-08 09:22:51 Outpatient R JOSESADAKAT [facility] [id number] [facility] 2023-10-08 09:22:51 2023-10-08 09:22:51 Hospital Encounter Jose [facility] 1..840.114 350.1.13.10 4.2.7.2.[id number] [facility] 2023-10-04 13:45:00 2023-10-04 14:00:00 Park Warden Visit 2, Adc Lab Jose Kat [facility] 1.2.840.114 350.1.13.10 4.2.7.2.[id number] [facility] 2023-10-04 13:30:00 2023-10-04 13:34:37 Outpatient R SADA GARCIAELA [facility] [id number] [facility] 2023-10-04 13:30:00 2023-10-04 13:34:37 Office Visit Jose Kat [facility] 1.2.840.114 350.1.13.10 4.2.7.2.[id number] [facility] 2023-10-04 00:00:00 2023-10-04 00:00:00 Telephone Sandrine Craig BUILDING 1.2.840.114 350.1.13.10 4.2.7.2.[id number] [facility] 2023-10-03 00:00:00 2023-10-03 00:00:00 Multidisci plinary Conference Kat Garcia [facility] 1.2.840.114 350.1.13.10 4.2.7.2.[id number] [facility] 2023-09-25 13:00:46 2023-09-25 23:59:00 Hospital Encounter Jose Kat [facility] 1.2840.114 350.1.13.10 4.2.7.2.[id number] [facility] 2023-09-25 13:00:35 2023-09-25 23:59:00 Outpatient R KAT GARCIA [facility] [id number] [facility] 2023-09-25 13:00:35 2023-09-25 23:59:00 Hospital Encounter Jose Kat [facility] 1.2.840.114 350.1.13.10 4.2.7.2.[id number] [facility] 2023-09-20 00:00:00 2023-09-20 00:00:00 Case Management Kat Garcia [facility] 1.2.840.114 350.1.13.10 4.2.7.2.[id number] [facility] 2023-09-17 13:45:00 2023-09-17 15:52:00 Surgery Kat Garcia [facility] 1.2.840.114 350.1.13.10 4.2.7.2.[id number] [facility] 2023-09-17 12:08:00 2023-09-17 15:18:00 Outpatient R JOSE [facility] [id number] [facility] 2023-09-17 12:08:00 2023-09-17 15:18:00 Hospital Encounter Jose [facility] 1.2.840.114 350.1.13.10 4.2.7.2.[id number] [facility] 2023-09-17 12:48:00 2023-09-17 14:00:[address] [facility] 1.2.840.114 350.1.13.10 4.2.7.2.[id number] [facility] 2023-09-17 00:00:00 2023-09-17 00:00:00 Orders Only Doctor Unassigned, [place] [facility] 1.2.840.114 350.1.13.10 4.2.7.2.[id number] [facility] 2023-09-14 15:31:06 2023-09-14 23:59:00 Hospital Encounter Jose [facility] 1.2.840.114 350.1.13.10 4.2.7.2.[id number] [facility] 2023-09-14 15:31:06 2023-09-14 23:59:00 Outpatient R JOSE [facility] [id number] [facility] 2023-09-12 00:00:00 2023-09-12 00:00:00 Orders Only Doctor Unassigned, [place] [facility] 1.2.840.114 350.1.13.10 4.2.7.2.[id number] [facility] 2023-09-06 15:00:00 2023-09-06 16:25:04 Outpatient R JOSE KAT [facility] [id number] [facility] 2023-09-06 15:00:00 2023-09-06 16:25:04 Office [facility] 1.2840.114 350.1.13.10 4.2.7.2.[id number] [facility] 2023-09-06 00:00:00 2023-09-06 00:00:00 Orders Only Doctor Unassigned, [place] [facility] 1.2.840.114 350.1.13.10 4.2.7.2.[id number] [facility] 2023-09-05 00:00:00 2023-09-05 00:00:00 Orders Only Doctor Unassigned, [place] [facility] 1.2.840.114 350.1.13.10 4.2.7.2.[id number] [facility] 2023-07-20 00:00:00 2023-07-20 00:00:00 Orders Only Doctor Unassigned, [place] [facility] 1.2.840.114 350.1.13.10 4.2.7.2.[id number] [facility] 2023-07-18 13:00:00 2023-07-18 14:30:00 Office Visit Sandor Wise Rm2, [facility] 1.2840.114 350.1.13.10 4.2.7.2.[id number] [facility] 2023-07-18 13:00:00 2023-07-18 13:00:00 Outpatient R BILLIE [facility] [id number] [facility] 2023-07-06 13:00:00 2023-07-06 13:15:00 Park Warden Visit 2, Adc Lab Billie [facility] 1.2.840.114 350.1.13.10 4.2.7.2.[id number] [facility] 2023-07-06 13:00:00 2023-07-06 13:00:00 Outpatient R BILLIE [facility] [id number] [facility] 2023-07-06 00:00:00 2023-07-06 00:00:00 Telephone Billie [facility] 1.2.840.114 350.1.13.10 4.2.7.2.[id number] [facility] 2023 14:45:00 2023 14:45:00 Outpatient R KAT GARCIA [facility] [id number] [facility] 2023-06-20 15:00:00 2023-06-20 15:00:00 Outpatient R BILLIE [facility] [id number] [facility] 2023-06-16 07:34:56 2023-06-16 23:59:00 Outpatient R SHARMILA FERGUSON [facility] [id number] [facility] 2023-06-16 07:34:56 2023-06-16 23:59:00 Hospital Encounter [facility] 1..840.114 350.1.13.10 4.2.7.2.[id number] [facility] 2023-06-15 00:00:00 2023-06-15 00:00:00 Orders Only Doctor Unassigned, [place] [facility] 1.2.840.114 350.1.13.10 4.2.7.2.[id number] [facility] 2023-06-08 00:00:00 2023-06-08 00:00:00 Orders Only Doctor Unassigned, [place] [facility] 1.2.840.114 350.1.13.10 4.2.7.2.[id number] [facility] 2023-05-31 00:00:00 2023-05-31 00:00:00 Telephone Marty Sharmila [facility] 1.2.840.114 350.1.13.10 4.2.7.2.[id number] [facility] 2023-05-30 15:15:00 2023-05-30 15:30:00 Park Warden Visit 2, Adc Lab Ferguson [facility] 1.2.840.114 350.1.13.10 4.2.7.2.[id number] [facility] 2023-05-30 14:15:00 2023-05-30 15:16:26 Outpatient R MARTY [facility] [id number] [facility] 2023-05-30 14:15:00 2023-05-30 15:16:26 Office Visit Marty [facility] 1.2.840.114 350.1.13.10 4.2.7.2.[id number] [facility] 2023-05-21 11:30:00 2023-05-21 11:30:00 [id number] 2023-05-21 00:00:00 2023-05-21 00:00:00 Orders Only Doctor Unassigned, [place] [facility] 1.2840.114 350.1.13.10 4.2.7.2.[id number] [facility] 2023-05-18 11:00:00 2023-05-18 11:00:00 [id number] 2023-02-15 00:00:00 2023-02-15 00:00:00 Case Management Marty [facility] 1.2840.114 350.1.13.10 4.2.7.2.[id number] [facility] 2023-02-14 14:30:00 2023-02-14 14:45:00 Park Warden Visit 2, Adc Lab Sandor Wise [facility] 1.2840.114 350.1.13.10 4.2.7.2.[id number] [facility] 2023-02-14 13:45:00 2023-02-14 14:21:00 [facility] [id number] [facility] 2023-02-14 13:45:00 2023-02-14 14:21:00 Office Visit Sharmila Ferguson [facility] 1.2840.114 350.1.13.10 4.2.7.2.[id number] [facility] 2023-02-14 00:00:00 2023-02-14 00:00:00 Orders Only Doctor Unassigned, [place] [facility] 1.2840.114 350.1.13.10 4.2.7.2.[id number] [facility] 2023-01-31 13:00:00 2023-01-31 13:00:00 Outpatient R SANDOR WISE [facility] [id number] [facility] 2023-01-10 11:00:00 2023-01-10 11:00:00 [id number] 2022-12-19 11:30:00 2022-12-19 11:30:00 [facility] [id number] [facility] 2021-09-08 11:30:00 2021-09-08 11:30:00 [facility] [id number] [facility] 2021-08-08 10:00:00 2021-08-08 10:00:00 [facility] [id number] [facility] 2021-06-13 11:15:00 2021-06-13 11:15:00 Outpatient R SANDOR WISE [facility] [id number] [facility] 2021-05-23 08:15:00 2021-05-23 08:15:00 Outpatient R SANDOR WISE [facility] [id number] [facility] 2021-05-02 09:30:00 2021-05-02 09:30:00 [facility] [id number] [facility] 2021-04-18 11:00:00 2021-04-18 11:00:00 [facility] [id number] [facility] 2021-02-07 15:30:00 2021-02-07 15:30:00 [facility] [id number] [facility] 2020-12-13 08:15:00 2020-12-13 08:15:00 [facility] [id number] [facility] 2020-11-25 08:15:00 2020-11-25 08:15:00 Outpatient R SANDOR WISE [facility] [id number] [facility] 2020-08-31 09:30:00 2020-08-31 09:30:00 Outpatient R KAT MANTILLA [facility] [id number] [facility] 2020-07-15 08:29:54 2020-07-15 09:01:21 [facility] 1.2.840.114 350.1.13.10 4.2.7.2.[id number] [facility] 2020-07-15 08:30:00 2020-07-15 08:30:00 Outpatient R BILLIE [facility] [id number] [facility] 2020-07-15 00:00:00 2020-07-15 00:00:00 Orders Only Doctor Unassigned, [place] [facility] 1..840.114 350.1.13.10 4.2.7.2.[id number] [facility] 2020-07-01 15:15:00 2020-07-01 15:15:00 [facility] [id number] [facility] 2020-06-14 08:00:00 2020-06-14 08:00:00 Outpatient [facility] [id number] [facility] 2020-04-06 09:26:40 2020-04-06 10:04:37 Nurse Visit Nurse, Adc Surgery [facility] 1..840.114 350.1.13.10 4.2.7.2.[id number] [facility] 2020-04-06 09:30:00 2020-04-06 09:30:00 Outpatient R BILLIE [facility] [id number] [facility] 2020-04-02 06:44:00 2020-04-02 10:55:00 [facility] 1.2.840.114 350.1.13.10 4.2.7.2.[id number] [facility] 2020-04-01 12:29:22 2020-04-01 12:44:22 Laboratory Only Only, Adc Test [facility] 1.2840.114 350.1.13.10 4.2.7.2.[id number] [facility] 2020-04-01 11:45:00 2020-04-01 11:45:00 Outpatient R [facility] [id number] [facility] 2020-04-01 11:45:00 2020-04-01 11:45:00 Outpatient R [facility] [id number] [facility] 2020-04-01 00:00:00 2020-04-01 00:00:00 Orders Only Doctor Unassigned, [place] [facility] 1.2840.114 350.1.13.10 4.2.7.2.[id number] [facility] 2020-04-01 00:00:00 2020-04-01 00:00:00 Letter (Out) Shi Walter [facility] 1.20.114 350.1.13.10 4.2.7.2.[id number] [facility] 2020-03-15 09:20:14 2020-03-15 10:03:15 Office Visit [facility] Professio nal Building 1.2.840.114 350.1.13.10 4.2.7.2.[id number] [facility] 2020-03-15 09:30:00 2020-03-15 09:30:00 Outpatient R [facility] [id number] [facility] 2020-03-15 00:00:00 2020-03-15 00:00:00 Orders Only Doctor Unassigned, [place] [facility] 1.2.840.114 350.1.13.10 4.2.7.2.[id number] [facility] 2020-03-03 00:00:00 2020-03-03 00:00:00 Telephone [facility] 1.2.840.114 350.1.13.10 4.2.7.2.[id number] [facility] 2020-03-01 10:58:22 2020-03-01 11:28:22 [facility] 1.2.840.114 350.1.13.10 4.2.7.2.[id number] [facility] 2020-03-01 11:00:00 2020-03-01 11:00:00 Outpatient R [facility] [id number] [facility] 2020-02-13 00:00:00 2020-02-13 00:00:00 Telephone Billie [facility] 1.2.840.114 350.1.13.10 4.2.7.2.[id number] [facility] 2020-02-09 08:38:11 2020-02-09 11:07:25 Office Visit Billie [facility] 1.2.840.114 350.1.13.10 4.2.7.2.[id number] [facility] 2020-02-09 08:45:00 2020-02-09 08:45:00 Outpatient R [facility] [id number] [facility] 2020-02-09 00:00:2020-02-09 00:00:00 Orders Only Doctor Unassigned, [place] [facility] 1.2.840.114 350.1.13.10 4.2.7.2.[id number] [facility] 2020-01-05 11:14:55 2020-01-05 11:29:55 Park Warden Visit 1, Adc Lab Billie [facility] 1.2840.114 350.1.13.10 4.2.7.2.[id number] [facility] 2020-01-05 09:31:28 2020-01-05 10:36:[address] [facility] 1.2840.114 350.1.13.10 4.2.7.2.[id number] [facility] 2020-01-05 09:30:00 2020-01-05 09:30:00 Outpatient R [facility] [id number] [facility] 2019-12-31 00:00:00 2019-12-31 00:00:00 Orders Only Doctor Unassigned, [place] [facility] 1.2.840.114 350.1.13.10 4.2.7.2.[id number] [facility] 2018-05-16 10:30:00 2018-05-16 11:19:57 Outpatient R VIOLET REDDY [facility] [id number] [facility] Results Test Description Test Time Test Comments Results Result Co mments Source [facility] W [id number] 21:50:02Exam: CT ABDOMEN PELVIS W CONTRAST Clinical History: Colon cancer, metastatic, staging Comparison: MRI from September 14, 2023 Findings: The lung bases are clear and there is no evidence of pleural orpericardialeffusion. The liver shows no suspicious focal lesions or ductal dilatation. Thespleen, ga llbladder, and the pancreas are unremarkable. Benign cysts areseen in both kidneys, on the right side a cyst measures about 11.5 cm inthe largest dimension. The surface of this cyst shows enhancing nodules,one of them measuring 1.1 cm (4:51), and another measures 0.9 cm (4:55).The left adrenal shows a indeterminate nodule measuring 2 cm (4:64). Theleft kidney shows a heterogenous the enhancing mass near the superior polemeasuring about 3 cm, consistent with renal cell carcinoma (6:56). No evidence of free fluid or air is seen in the abdomen and pelvis. A leftinguinal lymph node measures 1.2 cm in short axis. No evidence of dilatedbowel loops, diverticulitis, or appendicitis. Urinary bladderand theprostate are within normal limits. Limited evaluation of the tumor at thelevel of the anal canal. Tumor deposits are seen in the mesorectal space,along the superior hemorrhoidal vessels (4:127). Abdominal wall shows a subcentimeter focus at the umbilicus with suspectedenhancement. Vasculature is unremarkable and the bones show no suspiciousfocal lesions. [facility] THORAX W [id number] 20:49:51 PROCEDURE: CT CHEST WITH CONTRAST - CHEST PROTOCOL CLINICAL INDICATION: 73 years-old Male with Colon cancer, metastatic,staging . Comparison: None TECHNIQUE: Volumetric images of the chest were acquired (from lung apicesto bases) following administration of iodine contrast. Images werereconstructedat 2.5 mm slice thickness. MIP axial images, coronal andsagittal reformats were also submitted for interpretation. FINDINGS: Devices: None LUNGS AND PLEURA: The lungs are well-expanded. A 2.4 x 2.5 cm solid nodulein the left upper lobe.Right lower lobe atelectasis. No pleural abnormalitydetected. LYMPH NODES: Scattered small lymph nodes in both sides of the mediastinumand hilar regions. No evidence of intrathoracic lymphadenopathy. MEDIASTINUM AND LOWER NECK: No central airway lesions are detected. Theesophagus is within normal limits. The included thyroid gland appearsnormal. HEART AND GREATVESSELS: The heart is normal in size. No pericardialabnormalities are identified. The RV to LV is no rmal. The ascending thoracic aorta is dilated measuring up to 4.3 cm, with ?mildatherosclerotic plaque. The pulmonary trunk is normal in caliber. VISUALIZED UPPER ABDOMEN: A 9.7 x 9.1 cm cyst in the right kidney.Scattered calcified granulomas in the spleen suggestive of priorgranulomatous disease. O SSEOUS STRUCTURES AND SOFT TISSUES: No focal osseous lesions are detected.The soft tissues appear normal.[facility] 2023-[facility]-17 18:57:00Maciej Miranda CRNA ? ? 09/17/2023 ?1:03 PMIntubationDate/Time: 09/17/2023 12:57 PMUrgency: elective Airway not difficult General Information and Staff Patient location during procedure: ORPerformed: re sident/DIRECTOR TRANSLATIONAL Performed by: Maciej Miranda CRNAAuthorized by: Sandeep Morrow MD ? Indications and Patient ConditionIndications for airway management: anesthesiaSpontaneous Ventilation: absentSedation level: deepPreoxygenated: yesPatient position: sniffingMILS maintained throughoutMask difficulty assessment: 0 - not attempted Final Airway DetailsFinal airway type: supraglottic airway Successful airway: Supraglottic airway: igel.Size 4 Number of attempts at approach: 1Ventilation between attempts: noneNumber of other approaches attempted: 0 Additional CommentsSmooth, atraumatic, dentition and lips unchanged from pre-op.[facility] 2023-09-17 18:57:00Maciej Miranda CRNA ? ? 09/17/2023 ?1:03 PMIntubationDate/Time: 09/17/2023 12:57 PMUrgency: elective Airway not difficult General Information and Staff Patient location during procedure: ORPerformed: re sident/DIRECTOR TRANSLATIONAL Performed by: Maciej Miranda CRNAAuthorized by: Sandeep Morrow MD ? Indications and Patient ConditionIndications for airway management: anesthesiaSpontaneous Ventilation: absentSedation level: deepPreoxygenated: yesPatient position: sniffingMILS maintained throughoutMask difficulty assessment: 0 - not attempted Final Airway DetailsFinal airway type: supraglottic airway Successful airway: Supraglottic airway: igel.Size 4 Number of attempts at approach: 1Ventilation between attempts: noneNumber of other approaches attempted: 0 Additional CommentsSmooth, atraumatic, dentition and lips unchanged from pre-op.[facility] Urinalysis, [id number] 19:16:00* Test Item Value Reference Range Interpretation Comme nts POCT U SP GRAV (test code = 3255) 1.010 mg/dl 1.005-1.025 POCT PH U (test code = 3254) 6.0 mg/dl 5-8 POCT U LEUK EST (test code = 3263) Negative Negative - Negative POCT U NIT (test code = 3262) Negative Negative - Negative POCT U PROT (test code = 3259) Negative Negative - Negative POCT U GLU (test code = 3256) Negative Negative - Negative POCT U KETONE (test code = 3258) Negative Negative - Negative POCT U UROBILI (test code = 3260) 0.2 mg/dl 0.2-1 POCT U BILI (test code = 3261) Negative Negative - Negative POCT U BLD (test code = 3257) Trace - Lysed Negative - Negative A POCT U COLOR (test code = 3266) Yellow POCT U APPEAR (test code = 3267) clear Lab Interpretation (test code = 20915-1) [facility], [id number] 19:16:00 * Test Item Value Reference Range Interpretation Comme nts POCT U SP GRAV (test code = 3255) 1.010 mg/dl 1.005-1.025 POCT PH U (test code = 3254) 6.0 mg/dl 5-8 POCT U LEUK EST (test code = 3263) Negative Negative - Negative POCT U NIT (test code = 3262) Negative Negative - Negative POCT U PROT (test code = 3259) Negative Negative - Negative POCT U GLU (test code = 3256) Negative Negative - Negative POCT U KETONE (test code = 3258) Negative Negative - Negative POCT U UROBILI (test code = 3260) 0.2 mg/dl 0.2-1 POCT U BILI (test code = 3261) Negative Negative - Negative POCT U BLD (test code = 3257) Trace - Lysed Negative - Negative A POCT U COLOR (test code = 3266) Yellow POCT U APPEAR (test code = 3267) clear Lab Interpretation (test code = 74453-2) [facility]normal [facility], [id number] 19:31:00 * Test Item Value Reference Range Interpretation Comme nts POCT U SP GRAV (test code = 3255) 1.025 mg/dl 1.005-1.025 POCT PH U (test code = 3254) 6.0 mg/dl 5-8 POCT U LEUK EST (test code = 3263) Negative Negative - Negative POCT U NIT (test code = 3262) Negative Negative - Negati ve POCT U PROT (test code = 3259) Negative Negative - Negative POCT U GLU (test code = 3256) Negative Negative - Negati ve POCT U KETONE (test code = 3258) Negative Negative - Negative POCT U UROBILI (test code = 3260) 0.2 mg/dl 0.2-1 POCT U BILI (test code = 3261) Negative Negative - Negative POCT U BLD (test code = 3257) Negative Negative - Negati ve POCT U COLOR (test code = 3266) Yellow POCT U APPEAR (test code = 3267) Clear [facility] URINALYSIS, [id number] 19:31:00 * Test Item Value Reference Range Interpretation Comme nts POCT U SP GRAV (test code = 3255) 1.025 mg/dl 1.005-1.025 POCT PH U (test code = 3254) 6.0 mg/dl 5-8 POCT U LEUK EST (test code = 3263) Negative Negative - Negative POCT U NIT (test code = 3262) Negative Negative - Negati ve POCT U PROT (test code = 3259) Negative Negative - Negative POCT U GLU (test code = 3256) Negative Negative - Negati ve POCT U KETONE (test code = 3258) Negative Negative - Negative POCT U UROBILI (test code = 3260) 0.2 mg/dl 0.2-1 POCT U BILI (test code = 3261) Negative Negative - Negative POCT U BLD (test code = 3257) Negative Negative - Negati ve POCT U COLOR (test code = 3266) Yellow POCT U APPEAR (test code = 3267) Clear [facility] URINALYSIS, [id number] 14:47:00 * Test Item Value Reference Range Interpretation Comme nts POCT U SP GRAV (test code = 3255) 1.020 mg/dl 1.005-1.025 POCT PH U (test code = 3254) 5.5 mg/dl 5-8 POCT U LEUK EST (test code = 3263) negative Negative - Negative POCT U NIT (test code = 3262) negative Negative - Negati ve POCT U PROT (test code = 3259) negative Negative - Negative POCT U GLU (test code = 3256) negative Negative - Negati ve POCT U KETONE (test code = 3258) negative Negative - Negative POCT U UROBILI (test code = 3260) 0.2 mg/dl 0.2-1 POCT U BILI (test code = 3261) negative Negative - Negative POCT U BLD (test code = 3257) large Negative - Negati ve POCT U COLOR (test code = 3266) yellow POCT U APPEAR (test code = 3267) clear [facility] URINALYSIS, [id number] 14:47:00 * Test Item Value Reference Range Interpretation Comme nts POCT U SP GRAV (test code = 3255) 1.020 mg/dl 1.005-1.025 POCT PH U (test code = 3254) 5.5 mg/dl 5-8 POCT U LEUK EST (test code = 3263) negative Negative - Negative POCT U NIT (test code = 3262) negative Negative - Negati ve POCT U PROT (test code = 3259) negative Negative - Negative POCT U GLU (test code = 3256) negative Negative - Negati ve POCT U KETONE (test code = 3258) negative Negative - Negative POCT U UROBILI (test code = 3260) 0.2 mg/dl 0.2-1 POCT U BILI (test code = 3261) negative Negative - Negative POCT U BLD (test code = 3257) large Negative - Negati ve POCT U COLOR (test code = 3266) yellow POCT U APPEAR (test code = 3267) clear [facility] URINALYSIS, [id number] 14:10:00 * Test Item Value Reference Range Interpretation Comme nts POCT U SP GRAV (test code = 3255) 1.020 mg/dl 1.005-1.025 POCT PH U (test code = 3254) 6.0 mg/dl 5-8 POCT U LEUK EST (test code = 3263) Negative Negative - Negative POCT U NIT (test code = 3262) Negative Negative - Negati ve POCT U PROT (test code = 3259) Negative Negative - Negative POCT U GLU (test code = 3256) Negative Negative - Negati ve POCT U KETONE (test code = 3258) Negative Negative - Negative POCT U UROBILI (test code = 3260) 0.2 mg/dl 0.2-1 POCT U BILI (test code = 3261) Negative Negative - Negative POCT U BLD (test code = 3257) Negative Negative - Negati ve POCT U COLOR (test code = 3266) yellow POCT U APPEAR (test code = 3267) clear Lab Interpretation (test cod e = 15836-7) [facility] URINALYSIS, [id number] 14:10:00 * Test Item Value Reference Range Interpretation Comme nts POCT U SP GRAV (test code = 3255) 1.020 mg/dl 1.005-1.025 POCT PH U (test code = 3254) 6.0 mg/dl 5-8 POCT U LEUK EST (test code = 3263) Negative Negative - Negative POCT U NIT (test code = 3262) Negative Negative - Negati ve POCT U PROT (test code = 3259) Negative Negative - Negative POCT U GLU (test code = 3256) Negative Negative - Negati ve POCT U KETONE (test code = 3258) Negative Negative - Negative POCT U UROBILI (test code = 3260) 0.2 mg/dl 0.2-1 POCT U BILI (test code = 3261) Negative Negative - Negative POCT U BLD (test code = 3257) Negative Negative - Negati ve POCT U COLOR (test code = 3266) yellow POCT U APPEAR (test code = 3267) clear Lab Interpretation (test cod e = 19583-9) Normal [facility] URINALYSIS, [id number] 14:10:00 * Test Item Value Reference Range Interpretation Comme nts POCT U SP GRAV (test code = 3255) 1.020 mg/dl 1.005-1.025 POCT PH U (test code = 3254) 6.0 mg/dl 5-8 POCT U LEUK EST (test code = 3263) Negative Negative - Negative POCT U NIT (test code = 3262) Negative Negative - Negati ve POCT U PROT (test code = 3259) Negative Negative - Negative POCT U GLU (test code = 3256) Negative Negative - Negati ve POCT U KETONE (test code = 3258) Negative Negative - Negative POCT U UROBILI (test code = 3260) 0.2 mg/dl 0.2-1 POCT U BILI (test code = 3261) Negative Negative - Negative POCT U BLD (test code = 3257) Negative Negative - Negati ve POCT U COLOR (test code = 3266) yellow POCT U APPEAR (test code = 3267) clear Lab Interpretation (test cod e = 91636-9) Normal [facility] URINALYSIS, [id number] 15:01:00 * Test Item Value Reference Range Interpretation Comme nts POCT U SP GRAV (test code = 3255) 1.020 mg/dl 1.005-1.025 POCT PH U (test code = 3254) 6.0 mg/dl 5-8 POCT U LEUK EST (test code = 3263) Negative Negative - Negative POCT U NIT (test code = 3262) Negative Negative - Negati ve POCT U PROT (test code = 3259) Negative Negative - Negative POCT U GLU (test code = 3256) Negative Negative - Negati ve POCT U KETONE (test code = 3258) Negative Negative - Negative POCT U UROBILI (test code = 3260) 0.2 mg/dl 0.2-1 POCT U BILI (test code = 3261) Negative Negative - Negative POCT U BLD (test code = 3257) Trace Negative - Negati ve POCT U COLOR (test code = 3266) yellow POCT U APPEAR (test code = 3267) clear Lab Interpretation (test cod e = 21378-1) Abnormal [facility] URINALYSIS, [id number] 15:01:00 * Test Item Value Reference Range Interpretation Comme nts POCT U SP GRAV (test code = 3255) 1.020 mg/dl 1.005-1.025 POCT PH U (test code = 3254) 6.0 mg/dl 5-8 POCT U LEUK EST (test code = 3263) Negative Negative - Negative POCT U NIT (test code = 3262) Negative Negative - Negati ve POCT U PROT (test code = 3259) Negative Negative - Negative POCT U GLU (test code = 3256) Negative Negative - Negati ve POCT U KETONE (test code = 3258) Negative Negative - Negative POCT U UROBILI (test code = 3260) 0.2 mg/dl 0.2-1 POCT U BILI (test code = 3261) Negative Negative - Negative POCT U BLD (test code = 3257) Trace Negative - Negati ve POCT U COLOR (test code = 3266) yellow POCT U APPEAR (test code = 3267) clear Lab Interpretation (test cod e = 09989-7) Abnormal [facility] History and Physical Notes Date/Time Note Provider Source 2023-09-17 12:22:10 [id number] DXieZBAc2jedVHF6FSufCc qIL+3jLgArwkfTyr9kKddo4048-47-72R46:22:10F ormatting of this note might be different from the original.Patient seen and examined on 09/17/2023. There have been no changes to the interval H&P since 09/06/23. Plan for Or today for diagnostic EUA and biopsies.All risks benefits and alternatives discussed with patient, including the risk of bleeding, infection, damage to surrounding tissues, need for more invasive measures to address these complications, and they are amenable to proceed with procedure.All questions were answered. Consent form is signed and in the chart.Kat Garcia MD 09/17/2023 12:22 PMColon and Rectal Surgery ource Note - Kat Garcia MD - 09/06/2023 3:00 PM CST COLORECTAL SURGERY HISTORY AND PHYSICAL NOTEREASON FOR REFERRAL: hemorrhoid flareCc:Chief ComplaintPatient presents withNew PatientSUBJECTIVE: Maciej Lam is a 73 year old male with complaint of rectal pain for two months. Has tried hemorrhoid suppository and rectosmooth with no relief. Did not tolerate prostate check due to rectal pain. Has had worsening pain for several months. Has h/o long stnading constipation, straining. Denies h/o STD's or HPV. Reports intermittent spotting of BRBPR. Denies weight loss.Therapies attempted:Other : hydrocortisone, rectofoam, laxatives for constipation PRNFamily h/o CRC/polyps: no CRCPersonal h/o CRC/polyps: reports prior colonoscopy at unknown interval, findings of benign polypsAllergiesRichard has No Known Allergies.MedicationsOutpatient Medications Prior to VisitMedication Sig Dispense Refillhydrocortisone 25 mg suppository Insert 1 Suppository into rectum.Lidocaine-Aloe Vera 0.5 % Gel Apply 1 Application to area(s).pantoprazole 40 mg EC tablet Take 1 tablet by mouth.pramoxine-hydrocortisone 1-1 % foam Apply 1 Application to area(s).RECTASMOOTHE 5 % cream APPLY TO THE AFFECTED AREA TOPICALLY IN THE MORNING AND IN THE EVENINGhydroCHLOROthiazide 25 mg tablet Take 1 tablet by mouth in the morning.atorvastatin 20 mg tablet Take 1 tablet by mouth at bedtime.busPIRone 15 mg tablet Take 1 tablet by mouth in the morning and 1 tablet in the evening.carvedilol 6.25 mg tablet Take 1 tablet by mouth in the morning and 1 tablet in the evening. Take with meals.Cholecalciferol, Vitamin D3, 5,000 unit capsule Take by mouth.esomeprazole 40 mg capsule Take 1 capsule by mouth daily with breakfast.losartan 100 mg tablet Take 1 tablet by mouth in the morning.tamsulosin 0.4 mg 24 hr capsule Take 1 capsule by mouth in the morning.cyclobenzaprine (FLEXERIL) 10 mg tablet Take 1 tablet by mouth as needed for Muscle Spasms (OR PAIN UP TO TID). 20 tablet 0famotidine (PEPCID) 20 mg tablet Take 1 tablet by mouth at bedtime. 20 tablet 0naproxen (NAPROSYN) 500 mg tablet Take 1 tablet by mouth as needed for Pain (scale 1-3) (TO MAX OF BID). 20 tablet 0valsartan-hydrochlorothiazide (DIOVAN-HCT) 80-12.5 mg per tablet Take 1 tablet by mouth in the morning.doxazosin 2 mg tablet Take 1 tablet by mouth in the morning.atorvastatin 20 mg tablet Take 1 tablet by mouth.PROCTOFOAM HC rectal foam APPLY TOPICALLY TO THE AFFECTED AREA IN THE MORNING AND IN THE EVENINGFacility-Administered Medications Prior to VisitMedication Dose Route Frequency Provider Last Rate Last AdminlevoFLOXacin (LEVAQUIN) tablet 500 mg 500 mg Oral O.R. HOLDING ONCE Sandor Wise MDHistoriesPast Medical History:Diagnosis DateAnxietyHLD (hyperlipidemia)HypertensionPast Surgical History:Procedure Laterality DateLASER ABLATION OF PROSTATE N/A 04/02/2020Surgeon: Sandor Wsie MD; [facility] ORIFSocial HistorySocioeconomic HistoryMarital status: SingleTobacco UseSmoking status: NeverSmokeless tobacco: NeverSubstance and Sexual ActivityAlcohol use: NoFamily HistoryProblem Relation Age of OnsetCancer MotherUnknownDiabetes BrotherHypertension BrotherCancer Maternal GrandmotherBoneReview of SystemsVital SignsBP (!) 140/98 | Pulse 99 | Temp 36.4 ?C (97.6 ?F) (Temporal Artery) | Resp 18 | Wt 202 lb (91.6 kg) | SpO2 99% | BMI 35.78 kg/m?Physical ExamDigital Rectal Exam and AnoscopyPerineal exam:abnormalPerineal skin: perianal lesion, exquisitely tenderDigital rectal exam: exquisitely TTP, perianal malignant appearing fistula with extension through sphincter complex into anal canal, with mass palpated within anal canal over left lateroposterior side, no cellulitis no purulence no hemorrhoidsAnoscopy: COLORECTAL ANOSCOPY: unable to tolerate full exam, findings limitedAssessment/PlanMaciej Carole is a 73 year old male who presented for rectal pain, 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 I explained the staging process. Will start with diagnostic EUA/Bx and MRI and follow with CT scans once diagnosis confirmed. Possible PET as well. Explained the treatment of chemoXRT.All risks benefits and alternatives discussed with patient, including the risk of bleeding, infection, damage to surrounding tissues and need for more invasive measures to address these complications, and he is amenable to proceed with procedure. Consent in chart.I spent 60 minutes of time, independent of resident or medical student time spent during the entirety of this appointment, dedicated to:PreCharting (eg, review of tests, notes, etc.), Performing a medically appropriate examination and/or evaluation, Counseling and educating the patient/family/caregiver, Ordering medications, tests, or procedures, and Documenting clinical information in the electronic or other health record.Kat Garcia MD 09/06/2023 3:04 PMColon and Rectal Surgery [id number] History and physical [id number]:22:37Attending History and physical [id number] 9|[id number] for patient aazq51667-5Dcjhrmm and physical noteLNNARRATIVEFormatted C-CDA narrative textUT[address] H[id number] [id number]:22:371.2.840 .[id number]|[id number]. [id number] [facility] Procedure Notes Date/Time Note Provider Source 2023-09-17 13:03:15 edWQun9+5vNgHnXHcyTpxsvumUfDuyfsZ AYlt2ETpndtnhYJ4QFny0pOkjQCWeJe10 22-09-18T13:03:15Associated Order(s): Intubation IntubationDate/Time: 09/17/2023 12:57 PMUrgency: electiveAirway not difficultGeneral Information and StaffPatient location during procedure: ORPerformed: resident/CRNAPerformed by: Maciej Miranda CRNAAuthorized by: Sandeep Morrow MDIndications and Patient ConditionIndications for airway management: anesthesiaSpontaneous Ventilation: absentSedation level: deepPreoxygenated: yesPatient position: sniffingMILS maintained throughoutMask difficulty assessment: 0 - not attemptedFinal Airway DetailsFinal airway type: supraglottic airwaySuccessful airway: Supraglottic airway: igel.Size 4Number of attempts at approach: 1Ventilation between attempts: noneNumber of other approaches attempted: 0Additional CommentsSmooth, atraumatic, dentition and lips unchanged from pre-op. 31581-7Khxnsckldvyxww procedure ovjmZH4403-07-09S07:03:27Anesthes iology procedure [id number]. [id number] for patient nmhi95962-6Ddrnfqri operation noteLNNARRATIVEFormatted C-CDA narrative textNACR-NURSE AUTO HEATER MECHANIC,CERTIFIED REGISTERED NURSE ANESTHETISTNACR-NURSE AUTO HEATER MECHANIC,CERTIFIED REGISTERED NURSE ANESTHETIST[address] Vv[id number] 470RIBZWHWLSYQEBSMFUJCGHJ5737-01- 19T13:03:271.2.840.765803.1.72.3. 15|1.2.840.488485.1.13.104.2.7.2. 727879_[id number] NACR-NURSE AUTO HEATER MECHANIC,CERTIFIE D REGISTERED NURSE AUTO HEATER MECHANIC [facility] Notes Date/Time Note Provider Source 2023-10-18 16:02:16 D/u6tV0S47JWNxV02pVtscz9sQkzDn+2 WpIGkBoDh9Yi/P7W1wqfCAqnpM/kLwfC 6460-12-12S68:02:16 Patient requesting a call back with Pet scan results. Please advise. 66013-6Dnadlndsa encounter FdelBP0274-66-43G72:02:46Telepho ne encounter NoteTXT1.2.840.953236.1.13.104.2 .7.2.963589|[id number] e for patient dcmc77585-3GdjvJRBHUHGMFUMWuajxv araseli C-CDA narrative [id number] M [address] YxpoWinwmcespUkctdtswwHIZY546781 8464ZNFGEDKGBODGLKLMYAIYYC0893-9 :02:461.2.840.264319.1.72 .3.15|1.2.840.813999.1.13.104.2. 7.2.727879_[id number] Brynn Aguillon [facility] 2023-10-04 14:02:22 UiSmvjDCW+3phXuz+qTGGFfmkRmITJ8C kMHe7fbmQSceinn8SZdmQsbwVOxbZJ5S 2741-53-23M25:02:22 Navigation Follow Up Note:Spoke with:Maciej LamAction Plan:Received an email from Med/Onc- Dr. Blair asking this navigator look into recent Med/Onc referral.Recommendation:Dr. Garcia placed the referral as an outgoing referral to [facility]. I called and spoke with Ap Carole. He states he prefers to go to [facility] for a consultation but they are giving him a hard time with his reflecting the wrong on his insurance. The notes on the [facility] side also reflects his statement. He said the insurance left out a number which is the 0 in his . So instead of 52 the insurance company has his 52. Therefore, his referral is currently pending with the [facility] ([facility]).POC:I encouraged Mr. Lam call his insurance company to get that corrected but he feels like they are going to give him a hard time/run around with document requests and going to social security office and he feels that right now he has so much going on with all his appointments.E-mail sent to Dr. Garcia notifying her of this outcome and requesting she speak with him in reference to this request.Sandrine MENDEZ, RN-BCNurse Navigator-MDA at [facility] 21631-3Gdqepgfxd encounter DkrbLB7589-42-11K90:21:28Telepho ne encounter NoteTXT1.2.840.124732.1.13.104.2 .7.2.537416|[id number] e for patient ailg55331-5QqtsZKXAUDVABIWJrsffb araseli C-CDA narrative aozh422401890Bkqpnl Hinojosa RN[address] PfrjGeozmilntFwromdlouPCEE845258 7127JNZCNMYUXUDJOCUTLLXGER2132-8 :21:281.2.840.070982.1.72 .3.15|1.2.840.102030.1.13.104.2. 7.2.727879_[id number] Sandrine Craig RN [facility] 2023-10-04 13:45:00 CL+O9/4cYMI+FzxIKUT2jCW9/UnLceW1 hQ+Oj1omkFLKbrS8SGj+aAy74fD9Xaa8 1788-53-41Z36:45:00 Images from the original note were not included.Venipuncture collection performed by clean technique on the left anticubitus. Total of 1 attempts were made. Slight pressure and a bandage/dressing were applied to the site(s). The patient experienced no complications. The following specimens were processed according to instructions and sent to [facility] laboratories per lab order on 10/04/2023:LT BLUESST 2REDLAVPPTDK GREEN (LiHep)DK GREEN (SodH)GRAYDK BLUE (K2)DK BLUE (S)ACDBlood CultureNIPT/NTD 76330-0Rgbde DzjnQC5649-72-03Z52:45:30Nurse NoteTXT1.2.840.845565.1.13.104.2 .7.2.380701|[id number] e for patient sldc62083-5Tpdva NoteLNNARRATIVEFormatted C-CDA narrative text[address] IixjPxaueauuwFgxjuhaijAWCJ474391 5619FRFJLQLGJAMPJBKLGBVSAO8305-7 :45:301.2.840.725666.1.72 .3.15|1.2.840.343379.1.13.104.2. 7.2.727879_[id number] [facility] 2023-10-03 23:59:00 ICWxxvs3qSUBPfpW4cccCuCAygxXzEky pRnUnlWuem+IjEAn9HoZhQj9nXSqULRZ 9415-68-28G07:59:00 Maciej Lam is a 73 year old male was presented at the [facility] tumor board conference on 10/03/2023 for his diagnosis of rectal cancer. Topics discussed included an imaging review and treatment management.Recommendations included:MRI on 09/14/23 notes primary Tumor: low - upper mucinous anal/low rectal tumor spanning 13 cm in length with fistulization into the anus. MRI Stage: T3d N positive.Pathology anus adenocarcinoma, well differentiated, with mucinous features.3. Obtain PET scan and refer to oncology for evaluation. 14022-3Pzyijscgum slhbVR2887-51-77I75:46:11Evaluat ion noteTXT1.2.840.217756.1.13.104.2 .7.2.955966|[id number] e for patient yhtd14251-7GzixRHUUVEVIQZLZxhdnv araseli C-CDA narrative [id number] F Richard RNUT[address] LwnrIhwvxwypdQkkqmmyosIUAF246681 4368WYYQNDJRHPXLUKCUZAZTGS1290-7 312T08:46:111.2.840.949547.1.72 .3.15|1.2.840.913819.1.13.104.2. 7.2.727879_[id number] Mi Wing RN [facility] 2023-09-21 10:49:36 hgqf1nq5MOy3t9kfIxeziyxQ8FkbgY4g 40JoYFKe/sWJsPQhpoX2fcnaWETWU6rV 4897-41-28H01:49:36 Addendum created 09/21/23 1049 by Sandeep Morrow MDReview and Sign - Ready for Procedure 94450-2Aumizkul BdxflelxFG9902-99-05Z25:49:36Add endum DocumentTXT1.2.840.690590.1.13.1 04.2.7.2.353021|[id number] lable for patient xomr00211-5NmkjGVYJMLKELWWBmsyaw araseli C-CDA narrative text[address] IacmDnnuipaddUbexhaaxjSELD843907 6470RMCQKJUEWFUVKEKOWMMAQX4210-7 09-21T10:49:361.2.840.780023.1.72 .3.15|1.2.840.855574.1.13.104.2. 7.2.727879_[id number] [facility] 2023-09-17 16:42:56 J3Lh3oAruX2ojtn7AuMtsOUiFvBKtaeI GW3YO16sONFQvmY0KQZPlBjvGHAgC1dy 1673-12-62X09:42:56 Addendum created 09/17/23 164 by Sandeep Morrow MDClinical Note Signed 45547-2Iybekogs QkmjprvuAW4970-06-78G90:42:56Add endum DocumentTXT1.2.840.402701.1.13.1 04.2.7.2.837642|[id number] lable for patient vggl23825-9EsvmEIJVOLRMMHCGaiiwg araseli C-CDA narrative textUT[address] LckoBsbqyexjhToqkqpntfIAWN023633 9252FHYQXBIMQXEIEJPPSTEPEQ4696-1 :42:561.2.840.528600.1.72 .3.15|1.2.840.651827.1.13.104.2. 7.2.727879_[id number] [facility] 2023-09-17 14:52:03 qJvi7naGEAqQoLZC+eMqK6lFOe53btt4 e4ehq38WtiMBGACLwyhKsD2viOqrFXyS 5715-75-58P44:52:03 Patient: Maciej PurcellicanProcedure SummaryDate: 09/17/23 Room / Location: [address] Start: 1248 Anesthesia Stop: 1400Procedures:EXAM UNDER ANESTHESIA RECTUM (Rectum)BIOPSY (Rectum)FISTULOTOMY (Rectum) Diagnosis:Malignant tumor of anal canal(Malignant tumor of anal canal [C21.1])Surgeons: Kat Garcia MD Responsible Provider: Sandeep Morrow MDAnesthesia Type: General ASA Status: 3Anesthesia Type: GeneralLast vitalsBP (!) 130/99 (09/17/23 1440)Temp 36.2 ?C (97.1 ?F) (09/17/23 1400)Pulse 87 (09/17/23 1440)Resp 14 (09/17/23 1440)SpO2 93 % (09/17/23 1440)There were no known notable events for this encounter.Anesthesia Post EvaluationPatient location during evaluation: PACUPatient participation: complete - patient participatedLevel of consciousness: awake and alertPain score: 2Pain management: satisfactory to patientAirway patency: patentCardiovascular status: acceptable and blood pressure returned to baselineRespiratory status: acceptableHydration status: acceptable 33442-8Mqnodibxvbtioc Postoperative evaluation and management mkcxJJ5085-97-26L84:52:35Anesthe siology Postoperative evaluation and management noteTXT1.2.840.316976.1.13.104.2 .7.2.324147|[id number] e for patient fcnd41800-0Erpvihpj operation noteLNNARRATIVEFormatted C-CDA narrative textAN-ANESTHESIOLOGY ANESTHESIOLOGISTAN-ANESTHESIOLOG Y ANESTHESIOLOGISTUT[address] XxxuPovqzzgqpWgjxsqkgqHBTW133809 1187RTWIEXCLBBMQCXVBRSPNSR9817-0 09-17T1:52:351.2.840.460604.1.72 .3.15|1.2.840.174900.1.13.104.2. 7.2.727879_[id number] AN-ANESTHESIOLOGY ANESTHESIOLOGIST [facility] 2023-09-12 12:04:24 57ruIJnDLrO/SXzE8u0v5cnaq538E1FY 5mHCpopZx1Wj92KFPQi9uAEElH7VcvBE 3726-69-83M01:04:24 Name/ MRN / Age / Gender:Maciej Lam, 308675M34 year old maleBMI:Estimated body mass index is 35.78 kg/m? as calculated from the following:Height as of 07/18/23: 1.6 m (5' 3").Weight as of 09/06/23: 91.6 kg (202 lb).Allergies:Patient has no known allergies.Last Vitals:BP Readings from Last 1 Encounters:09/06/23 (!) 140/98Pulse Readings from Last 1 Encounters:09/06/23 99SpO2 Readings from Last 1 Encounters:09/06/23 99%Date of Surgery: 09/17/2023Surgeon: Kat Garcia MDProcedure: EXAM UNDER ANESTHESIA RECTUM (Rectum)BIOPSYOR [facility] Pre[facility] Eval (physical exam)Copied forward and updated from: 03/03/20Anesthesia Preop: Chart Review and Tvyf-bg-KmefQZHB questionnaire answers incorporatedAPAC Communication: 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 ROR sent to Dr Silverman's office. Janette Farrar RN 09/12/2023 12:27 PMPONV Risk Factors: non-smokerPONV Risk Score: 1Anesthesia HistoryAnesthesia History Negative per Chart ReviewPrevious Anesthetics/AirwaysCardiovascula rComments:BP Readings from Last 4 Encounters:09/06/23 : (!) 140/ : (!) 133/ : (!) 134/ : (!) 142/1069/11/16 EKGSinus rhythm with 1st degree A-V blockOtherwise normal ECGMETS Comments: 09/12/23: can walk through grocery store and do house hold chores with no CP or SOB(+) Hypertension (HCTZ, losartan, carvedilol, doxazosin), well controlled, chronic and on beta steph therapy(+) Dyslipidemia (statin)(-) Angina/Chest Pain Within Last Year(-) Patient does not report prior [place](+) Dysrhythmias(+) CHFPulmonaryPulmonary ROS Negative per Chart Review(-) Shortness of breath(-) Tobacco useNeuro/MusculoskeletalComments :(+) Lumbar spinal stenosis(-) TIA(-) CVA(+) Anxiety(-) Positioning limitations(+) Obesity (BMI 35.77)GI/HepaticComments:CC: Malignant tumor of anal canal(+) dysphagia(+) hemorrhoid(+) constipation(+) GERD (esomeprazole, pantoprazole)HematologyNegative Hematology ROS(+) No historical type and screenType and Screen Ordered: NoRenalComments:(+) BPH(+) Renal disease (stage 3a) and CKDSkinNegative Skin Marcos/OtherNegative Endo/Other ROSOther(-) Tobacco useOB/GYNOB/TEAM ASSEMBLER N/APediatricPediatric N/ANeonatalNeonatal N/APreoperative Medication InstructionsContinue taking all prescribed medications except:MARIAELENA inhibitors, ARBs, diuretics, all oral diabetes medicationsAnticoagulant Therapy: Defer to surgeonsInsulin: Take 1/2 dose the night prior to surgery. Hold on DOS.Phentermine: Alert [facility] anesthesiologistSGLT2 Inhibitors: "gliflozins" to be held for 3 days prior to elective surgeriesGLP1 Agonosit: stop 7 days prior to surgeryMAC Cases: Continue taking MARIAELENA inhibitors and ARBsASA ClassificationASA: 3Current Medications:Current Facility-Administered MedicationsMedication Dose Route Frequency Last Rate Last Admin levoFLOXacin (LEVAQUIN) tablet 500 mg 500 mg Oral O.R. HOLDING ONCECurrent Outpatient MedicationsMedication Sig Dispense Refill carvediloL 12.5 mg tablet Take 1 tablet by mouth in the morning and 1 tablet in the evening. Take with meals. ondansetron 4 mg tablet TAKE 1 TABLET BY MOUTH EVERY 8 HOURS NEEDED FOR NAUSEA OR VOMITING FOR UP TO 7 DAYS sennosides 8.6 mg tablet Take 1 tablet by mouth. doxazosin 2 mg tablet Take 1 tablet by mouth in the morning. Lidocaine-Aloe Vera 0.5 % Gel Apply 1 Application to area(s). oxyCODONE 5 mg immediate release tablet Take 1 tablet by mouth every 4 (four) hours as needed for Pain (scale 7-10) for up to 7 days. Indications: acute pain 30 tablet 0 hydroCHLOROthiazide 25 mg tablet Take 1 tablet by mouth in the morning. atorvastatin 20 mg tablet Take 1 tablet by mouth at bedtime. busPIRone 15 mg tablet Take 1 tablet by mouth in the morning and 1 tablet in the evening. esomeprazole 40 mg capsule Take 1 capsule by mouth daily with breakfast. losartan 100 mg tablet Take 1 tablet by mouth in the morning. cyclobenzaprine (FLEXERIL) 10 mg tablet Take 1 tablet by mouth as needed for Muscle Spasms (OR PAIN UP TO TID). 20 tablet 0 pantoprazole 40 mg EC tablet Take 1 tablet by mouth.Previous Surgeries:Past Surgical History:Procedure Laterality Date LASER ABLATION OF PROSTATE N/A 04/02/2020Surgeon: Sandor Wise MD; Location: [facility] Physical ExamGeneralalert and oriented x 3Neuro/PsychDentalAbdominalGI exam normalAirwayMallampati score:IITM distance:> 5 cmNECK: shortNeck ROM: fullMouth opening:normalExtremityPulmonary pulmonary exam normal OtherCardiovascularRhythm:regula rRate: normalAnesthesia PlanASA Status: 3Plan discussed during pre-op evaluation: GeneralAnesthetic plan on DOS: GeneralPlan to include: LMAAnesthesia plan discussed with: patient or representativePost-Operative Analgesia: routine analgesia & antiemeticsRecovery Plan: PACUAdditional comments: 65239-5Viwiwizoisyprp Preoperative evaluation and management rzbcGX8305-94-42Y87:42:43Anesthe siology Preoperative evaluation and management noteTXT1.2.840.886913.1.13.104.2 .7.2.021600|[id number] e for patient yxwx48628-6Dgjjcuad operation noteLNNARRATIVEFormatted C-CDA narrative textUT[address] QgxzVreyuibuiKggykayjlUXBG467783 9100LHMDZTREXJNWJRKJUVHYYF1820-2 :42:431.2.840.659267.1.72 .3.15|1.2.840.139631.1.13.104.2. 7.2.727879_[id number] [facility] 2023-09-12 10:22:04 a1F1uA8eRcwXwYQfd6v1RqDyXlBTqD3k ORYpljaLfwv8h4HbOcB49V/l0LugZt35 4569-77-52A98:22:04 Images from the original note were not included.Procedure is at:[place] [id number] [place] [address].The Day Surgery is location on the left corner of [facility] closest to the formerly [facility]. On that NW corner you will see a sign that states "Surgery". Please go inside that door and sign in at that desk.Do not eat anything the morning of your procedure starting at Midnight or 8 hours before arrival time, which ever is longer.You may drink water, sprite or gatorade the morning of the procedure, but only up until a certain point. Do not drink anything within 2 hours of your arrival.You may take your medications as instructed below with a sip of water unless otherwise directed by physician.MAC Cases may continue Diuretics.GLP1a medications must be held for 7 days PRIOR to Day of Procedure.Anticoagulants will be per physician Guidance.Report to [facility], [address] [place] [address], Day Surgery Unit on 9-29-33[facility] will call you the day before your procedure to let you know what time to arrive.Please note: You may not travel home alone and that includes in a taxi, bus, or Uber.We must speak to your Responsible Adult before your procedure the morning of your procedure. 47051-4Eajbr TosbTL0839-20-62M72:22:38Nurse NoteTXT1.2.840.363130.1.13.104.2 .7.2.838287|[id number] e for patient nkjl06475-7PipwJCIRHUPNSNYLtjobg araseli PAIGE narrative text[address] AjshWmsgxaorbZvqeamyrwRTPY944384 1581BOJBQCXDQWAPPOLDLNUCUM9195-8 :22:381.2.840.770151.1.72 .3.15|1.2.840.376540.1.13.104.2. 7.2.727879_[id number] [facility] 2023-09-11 14:50:17 yVljjRDbLqbpICkGHhdvZ1mm/67fbZud NA4CG+2PrXWKixGEAw1oDOhceuU0LYSI 6631-94-91U88:50:17 Attempted to contact patient for upcoming surgery appointment on 09/17/23. Voicemail not set up, unable to leave message on pt number [phone]. 40406-8Qeiol ClqrTH9002-98-89T02:51:10Nurse NoteTXT1.2.840.827306.1.13.104.2 .7.2.921039|[id number] e for patient rgln15856-1YrqvOSDEDTQRILYZsdikq araseli C-CDA narrative sgcz718662684JzoxmhSole Colon RN[address] JkbxHbusuclrlVrfdfcifeMMEU723016 1069CKPVNUAKJOGUITTWCYYSKH3416-5 4:51:101.2.840.818552.1.72 .3.15|1.2.840.767393.1.13.104.2. 7.2.727879_[id number] Sole Colon RN [facility] 2023-02-14 14:30:00 pPLemhvt5WslJb9LT8Qq2aTPRVOie/0G Nyr/blkGP92oA/AiQWnmiEhLjpD9UdAQ 4807-69-68Y12:30:00 Images from the original note were not included.Venipuncture collection performed by clean technique on the left anticubitus. Total of 1 attempts were made. Slight pressure and a bandage/dressing were applied to the site(s). The patient experienced no complications. The following specimens were processed according to instructions and sent to [facility] laboratories per lab order on 02/14/2023 : LT BLUE SST 1 RED LAV PPT DK GREEN (LiHep) DK GREEN (SodH) DON DK BLUE (K2) DK BLUE (S) ACD Blood Culture NIPT/NTD 92173-5Bxrib FcruXB2089-78-56U97:28:19Nurse NoteTXT1.2.840.681330.1.13.104.2 .7.2.466864|[id number] joseph for patient [address] PhonEmyjiqlwdHgrcrjfepGWKP022149 3767AQMKWBEHAFUJJFFHSLVZUF8706-1 :28:191.2.840.324100.1.72 .3.15|1.2.840.878586.1.13.104.2. 7.2.727879_[id number] [facility]
[2023-10-22 21:35] LABS: Absolute Eosinophils 0.1 K/uL (0-0.5); Absolute Lymphocytes (CBC) 1.7 K/uL (0.7-4.9); Absolute Monocytes 0.4 K/uL (0.1-1.3); Absolute Neutrophil 2.2 K/uL (1.8-8.0); Basophils % 0.8 % (0-1.3); Eosinophils % 2.7 % (0-4.4); Hematocrit 33.5 % (39.6-49.0); Hemoglobin 10.9 g/dL (13.6-17.9); Lymphocytes % 38.3 % (15.3-44.8); MCH 26.8 pg (27.0-35.0); MCHC 32.7 g/dL (32.0-36.0); MPV 8.9 fL (7.6-11.3); Neutrophils % 48.2 % (41.7-73.7); Platelets 199 thou/uL (152-406); RBC Red Blood Cell Count 4.08 M/uL (4.33-5.43); Red Cell Distribution Width 14.3 % (12.1-15.2)
[2023-10-22 21:48] LABS: Anion Gap 6.6 mEq/L (5.0-15.0); Potassium 3.6 mEq/L (3.5-5.1); Troponin High Sensitivity 5.3 pg/mL (<58.9)
--- NOTE | 2023-10-22 22:14 | RAD REPORT ---
EXAM DESCRIPTION: Dorcas Single View10/22/2023 9:20 pm CLINICAL HISTORY: Chest pain COMPARISON: none FINDINGS: 2.3 nodule overlies the mid left lung. Right lung appears clear. Heart is normal size IMPRESSION: 2.3 centimeter nodular overlies the mid left lung. CT chest recommended
--- NOTE | 2023-10-22 22:18 | EDPHYS ---
Physician Documentation [facility] Name: Maciej Lam Age: 73 yrs Sex: Male : 1950 Arrival Date: 10/22/2023 Time: 20:39 Bed 2 Private MD: ED Physician Fran Romero HPI: 10/21 20:53 This 73 yrs old Black Male presents to ER via EMS with complaints of Anxiety. ec2 20:53 Patient arrives today for evaluation of not feeling well. Patient reports that he just ec2 generally has not been feeling well, states that he feels a bit lightheaded, states that he also feels like he is dehydrated, states that he has not had adequate fluid intake, is also on diuretic. Reports no chest pain, shortness of breath, abdominal pain, nausea or vomiting. Reports no issues with urinary problems. Does report some occasional diarrhea.. Historical: - Allergies: 20:48 No Known Allergies; bm8 - Home Meds: 20:48 carvidelol 25 mg 25 mg daily [Active]; losartan 50 mg oral tablet 1 tab once for bm8 hypertension [Active]; - PMHx: 20:48 Hypertensive disorder; bm8 - PSHx: 20:48 Unable to Obtain; bm8 - Social history:: Smoking status: Patient denies any tobacco usage or history of. ROS: 20:53 Constitutional: as per hpi ec2 Exam: 20:53 Constitutional: GEN: NAD Head: atraumatic Eyes: EOMI Ears: External ears are ec2 normal. CV: regular rate LUNGS: no respiratory distress ABD: non-distended, soft, nontender, no guarding, not rigid SKIN: no evidence of rashes MSK: no evidence of trauma NEURO: moves all extremities equally. Psych: Mildly anxious individual is otherwise cooperative and well-appearing Vital Signs: 20:45 BP 133 / 104; Pulse 68; Resp 18; Temp 98.3; Pulse Ox 99% on R/A; Weight 91.63 kg; bm8 Height 06 ft. 1 in. ; Pain 0/10; 22:17 BP 145 / 97; Pulse 60; Resp 16; Temp 98.3; Pulse Ox 97% on R/A; Pain 0/10; bm8 20:45 Body Mass Index 26.65 (91.63 kg, 185.42 cm) bm8 20:45 Pain Scale: Adult bm8 22:17 Pain Scale: Adult bm8 Jolanta Coma Score: 22:17 Eye Response: spontaneous(4). Motor Response: obeys commands(6). Verbal Response: bm8 oriented(5). Total: 15. MDM: 20:52 Patient medically screened. ec2 20:53 Data reviewed: vital signs. ED course: Patient arrives today due to concern for not ec2 feeling well. Examination remarkable for mildly anxious individual is otherwise in no acute distress with a reassuring examination. Will obtain lab work, give the patient Atarax and reassess. Evaluating for electrolyte disturbances, anemia, renal dysfunction, ACS. . 20:55 ED course: EKG independently reviewed and interpreted by me, shows normal sinus rhythm, ec2 rate 65, no acute ST segment elevations, intervals are nonconcerning, first-degree AV block noted.. 20:55 ED course: Of note patient also expresses some anxiety, states that he has a history of ec2 anxiety, states that he had a recent rectal mass resection, states that he is anxious about his recent PET scan that has not resulted yet.. 22:07 ED course: Metabolic profile shows renal dysfunction with creatinine 1.64, troponin ec2 within normal ranges. . 22:17 ED course: CBC shows slight anemia, chest x-ray shows nodule over the left midlung. ec2 Patient recent PET scan outpatient, I suspect this is likely progression of his known rectal mass. I updated the patient regarding this, he patient can have outpatient CT scanning of the chest, patient with any hypoxia or work of breathing to indicate obtaining emergent CT scan of the chest. . 22:23 ED course: Of note patient does also note that he has a known history of this lung ec2 nodule, had a recent CAT scan of the chest, abdomen, pelvis as well as PET scan most recently as of less than 1 month ago. Patient does not know results of the scans at this time, instructed we need to follow-up to further understand possible cancerous diagnosis.. 10/21 20:53 Order name: Basic Metabolic Panel; Complete Time: 22:07 ec2 10/21 20:53 Order name: CBC with Diff; Complete Time: 22:16 ec2 10/21 20:53 Order name: Troponin HS; Complete Time: 22: ec2 10/21 20:53 Order name: XRAY Chest (1 view); Complete Time: 22:16 ec2 10/21 20:53 Order name: EKG; Complete Time: 20:53 ec2 10/21 20:53 Order name: Cardiac monitoring; Complete Time: 20:55 ec2 10/21 20:53 Order name: EKG - Nurse/Tech; Complete Time: 20:56 ec2 10/21 20:53 Order name: IV Saline Lock; Complete Time: 20:56 ec2 10/21 20:53 Order name: Labs collected and sent; Complete Time: 21:04 ec2 10/21 20:53 Order name: O2 Per Protocol; Complete Time: 20:56 ec2 10/21 20:53 Order name: O2 Sat Monitoring; Complete Time: 20:56 ec2 Administered Medications: 21:04 Drug: NS 0.9% IV 1000 ml IV at 1 bolus Per protocol; 1000 mL bolus Route: IV; Rate: 1 bm8 bolus; Site: left antecubital; 21:52 Follow up: IV Status: Completed infusion; IV Intake: 1000ml bm8 22:21 Follow up: IV Status: Completed infusion; IV Intake: 1000ml bm8 21:04 Drug: hydrOXYzine PO 50 mg PO once Route: PO; bm8 21:52 Follow up: Response: No adverse reaction bm8 22:21 Follow up: Response: No adverse reaction bm8 22:30 Follow up: Response: No adverse reaction bm8 Disposition Summary: 10/22/23 22:18 Discharge Ordered Notes: Location: Home ec2 Condition: Stable ec2 Diagnosis - Anxiety disorder, unspecified ec2 - Weakness ec2 Followup: ec2 - With: Private Physician - When: - Reason: Re-evaluation by your physician Discharge Instructions: - Discharge Summary Sheet ec2 - Weakness ec2 Forms: - Medication Reconciliation Form ec2 - Thank You Letter ec2 - Antibiotic Education ec2 - Prescription Opioid Use ec2 - Patient Portal Instructions ec2 - Leadership Thank You Letter ec2 Signatures: Dispatcher [employer] Fran Ricketts MD MD ec2 Dawson Leung RN RN bm8
--- NOTE | 2023-10-22 22:18 | ER ---
Nurse's Notes [facility] Name: Maciej Lam Age: 73 yrs Sex: Male : 1950 Arrival Date: 10/22/2023 Time: 20:39 Bed 2 Private MD: Diagnosis: Anxiety disorder, unspecified;Weakness Presentation: 10/21 20:45 Chief complaint: Patient states: feeling anxious and "just not right" denies pain. bm8 Coronavirus screen: Vaccine status: Patient reports being unvaccinated. Client denies travel out of the [place] in the last 14 days. Ebola Screen: Patient negative for fever greater than or equal to 101.5 degrees Fahrenheit, and additional compatible Ebola Virus Disease symptoms Patient denies exposure to infectious person. Patient denies travel to an Ebola-affected area in the 21 days before illness onset. Initial Sepsis Screen: Does the patient meet any 2 criteria? No. Patient's initial sepsis screen is negative. Does the patient have a suspected source of infection? No. Patient's initial sepsis screen is negative. Risk Assessment: Do you want to hurt yourself or someone else? Patient reports no desire to harm self or others. Onset of symptoms was October 22, 2023 at 18:00. Care prior to arrival: Medication(s) given: labetalol 5 mg \\T\\ 2004 IV initiated. 20 GA, in the left antecubital area. 20:45 Method Of Arrival: EMS: [facility] 20:45 Acuity: CUBA 3 bm8 Triage Assessment: 20:48 General: Appears in no apparent distress. comfortable, Behavior is calm, cooperative. bm8 Pain: Denies pain. EENT: No deficits noted. No signs and/or symptoms were reported regarding the EENT system. Neuro: No deficits noted. Level of Consciousness is awake, alert, obeys commands, Oriented to person, place, time, situation, [employer] Assembler are equal bilaterally Moves all extremities. Cardiovascular: Heart tones S1 S2 Capillary refill < 3 seconds Patient's skin is warm and dry. Pulses are all present. Rhythm is regular. Respiratory: Airway is patent Breath sounds are clear bilaterally. GI: No deficits noted. No signs and/or symptoms were reported involving the gastrointestinal system. : No signs and/or symptoms were reported regarding the genitourinary system. Derm: No signs and/or symptoms reported regarding the dermatologic system. Musculoskeletal: No signs and/or symptoms reported regarding the musculoskeletal system. Historical: - Allergies: 20:48 No Known Allergies; bm8 - Home Meds: 20:48 carvidelol 25 mg 25 mg daily [Active]; losartan 50 mg oral tablet 1 tab once for bm8 hypertension [Active]; - PMHx: 20:48 Hypertensive disorder; bm8 - PSHx: 20:48 Unable to Obtain; bm8 - Social history:: Smoking status: Patient denies any tobacco usage or history of. Screenin:52 [facility] ED Fall Risk Assessment (Adult) History of falling in the last 3 months, bm8 including since admission No falls in past 3 months (0 pts) Confusion or Disorientation No (0 pts) Intoxicated or Sedated No (0 pts) Impaired Gait No (0 pts) Mobility Assist Device Used No (0 pt) Altered Elimination No (0 pt) Score/Fall Risk Level. Abuse screen: Denies threats or abuse. Nutritional screening: No deficits noted. Tuberculosis screening: No symptoms or risk factors identified. Assessment: 20:52 Reassessment: see triage note. bm8 22:17 Reassessment: Patient appears in no apparent distress at this time. Patient and/or bm8 family updated on plan of care and expected duration. Pain level reassessed. Patient is alert, oriented x 3, equal unlabored respirations, skin warm/dry/pink. Patient denies pain at this time. Patient states feeling better. Patient states symptoms have improved. General: Appears in no apparent distress. comfortable, Behavior is calm, cooperative, appropriate for age. Pain: Denies pain. Neuro: No deficits noted. Level of Consciousness is awake, alert, obeys commands, Oriented to person, place, time, situation. Cardiovascular: Denies chest pain, lightheadedness, palpitations, shortness of breath, Heart tones S1 S2 Capillary refill < 3 seconds Patient's skin is warm and dry. Respiratory: No deficits noted. Airway is patent Respiratory effort is even, unlabored, Respiratory pattern is regular. GI: No signs and/or symptoms were reported involving the gastrointestinal system. : No signs and/or symptoms were reported regarding the genitourinary system. EENT: No signs and/or symptoms were reported regarding the EENT system. Derm: No signs and/or symptoms reported regarding the dermatologic system. Vital Signs: 20:45 BP 133 / 104; Pulse 68; Resp 18; Temp 98.3; Pulse Ox 99% on R/A; Weight 91.63 kg; bm8 Height 06 ft. 1 in. ; Pain 0/10; 22:17 BP 145 / 97; Pulse 60; Resp 16; Temp 98.3; Pulse Ox 97% on R/A; Pain 0/10; bm8 20:45 Body Mass Index 26.65 (91.63 kg, 185.42 cm) bm8 20:45 Pain Scale: Adult bm8 22:17 Pain Scale: Adult bm8 Jolanta Coma Score: 22:17 Eye Response: spontaneous(4). Motor Response: obeys commands(6). Verbal Response: bm8 oriented(5). Total: 15. ED Course: 20:44 Patient arrived in ED. bm8 20:47 Fran Romero MD is Attending Physician. ec2 20:48 Triage completed. bm8 20:48 Arm band placed on right wrist. bm8 20:52 Patient has correct armband on for positive identification. Placed in gown. Bed in low bm8 position. Call light in reach. Side rails up X 1. garnett mechanic on. Pulse ox on. NIBP on. Door closed. Noise minimized. 20:52 Maintain EMS IV. Dressing intact. Good blood return noted. Site clean \\T\\ dry. Gauge \\T\\ bm 8 site: 20g LAC. 20:55 Dawson Leung, RN is Primary Nurse. bm8 21:22 XRAY Chest (1 view) In Process Unspecified. EDMS 22:29 No provider procedures requiring assistance completed. IV discontinued, intact, bm8 bleeding controlled, No redness/swelling at site. Pressure dressing applied. 22:30 Provided Education on: dc instructions. bm8 Administered Medications: 21:04 Drug: NS 0.9% IV 1000 ml IV at 1 bolus Per protocol; 1000 mL bolus Route: IV; Rate: 1 bm8 bolus; Site: left antecubital; 21:52 Follow up: IV Status: Completed infusion; IV Intake: 1000ml bm8 22:21 Follow up: IV Status: Completed infusion; IV Intake: 1000ml bm8 21:04 Drug: hydrOXYzine PO 50 mg PO once Route: PO; bm8 21:52 Follow up: Response: No adverse reaction bm8 22:21 Follow up: Response: No adverse reaction bm8 22:30 Follow up: Response: No adverse reaction bm8 Medication: 20:52 VIS not applicable for this client. bm8 Intake: 21:52 IV: 1000ml; Total: 1000ml. bm8 22:21 IV: 1000ml; Total: 2000ml. bm8 Outcome: 22:18 Discharge ordered by . ec2 22:29 Discharged to home ambulatory, with family, bm8 22:29 Condition: stable 22:29 Discharge instructions given to patient, significant other, Instructed on discharge instructions, follow up and referral plans. safety practices, Demonstrated understanding of instructions, follow-up care, 22:31 Patient left the ED. bm8 Signatures: Dispatcher [employer] EDFran Wise MD MD ec2 Dawson Leung, RN RN bm8
[2023-10-22 22:49] VITALS: BP 145/97; TEMP 98.3; O2SAT 97
--- NOTE | 2023-10-23 17:03 | EKG ---
Test Date: 2023-10-22 Test Time: 19:52:40 Plaster Foreman: CHUN MEASUREMENT RESULTS: Intervals: Rate: 65 MD: 218 QRSD: 100 QT: 404 QTc: 420 [place]: P: 52 MD: 218 QRS: -12 T: 38 INTERPRETIVE STATEMENTS: Sinus rhythm with 1st degree AV block Otherwise normal ECG No previous ECG available for comparison Electronically Signed On 10-23-23 17:00:22 CDT by Vicente Ruvalcaba
== END ==
LOC: ER 20:39 → EDBD 20:39
DX: F41.9 Anxiety disorder, unspecified (principal); R53.1 Weakness; I10 Essential (primary) hypertension
CPT/HCPCS: 93005; 85025; 80048; 36415; 84484; 71045; 96360; 99285; J7030